=== PATIENT | female | born 1960 | race Caucasian/White ===

== ENCOUNTER → 2017-04-20 | Outpatient (CLI) | payer MEDICARE, OTHER ==
--- NOTE | 2017-04-20 08:43 | CT ---
EXAMINATION TYPE: CT chest wo con DATE OF EXAM: 04/20/2017 COMPARISON: NONE HISTORY: sob/diffuse infiltrative lung disease CT DLP: 873 mGycm. Automated Exposure Control for Dose Reduction was Utilized. TECHNIQUE: CT scan of the thorax is performed without IV contrast. FINDINGS: LUNGS: Background inferiorly moderate emphysematous change is seen There is background reticulation a nd diffuse intralobular reticulonodular septal thickening or fibrosis seen bilaterally most prominent in the upper lungs. There is small to moderate-sized left pleural effusion. Some multifocal areas of irregular subcentimeter nodularity is present bilaterally towards the periphery of the upper lobes. No suspicious focal consolidation is present. No large parenchymal mass is identified. Tracheobronchi al tree is patent. MEDIASTINUM: Lack of IV contrast is noted to limit evaluation for mediastinal and especially hilar ad enopathy. There are enlarged thoracic lymph nodes. There are prominent lymph nodes in the anterior superior mediastinum. There is enlarged right paratracheal lymph node for reference measuring 1.4 x 1 .3 cm on axial image 18. There is enlarged pericarinal lymph node measuring 1.7 x 1.4 cm maximal imag e 23. No significant pericardial effusion is seen. Mild Cardiomegaly is identified. There is three-v essel coronary artery calcification seen. OTHER: There is partial visualization of calcific foci upper pole level both kidneys felt to reflect some vascular calcification as well as small renal stones. There is slight scoliotic curvature with m oderate to severe spurring throughout the mid to lower thoracic spine identified. IMPRESSION: 1. There is background moderate chronic emphysematous change and interstitial fibrosis bilaterally an d diffusely but most prominent in upper lungs. 2. There is mild cardiomegaly with small to moderate-sized left pleural effusion. 3. There is abnormal thoracic adenopathy, differential includes infectious, granulomatous, and neopla stic etiologies. Need to further investigate by PET CT or bronchoscopy should be based on clinical co rrelation. 4. Severe three-vessel coronary artery calcification which is noted marker for coronary artery diseas e. Correlate clinically with additional cardiac risk factors.
== END | disposition home or self-care (01) ==
LOC: RADCTMAIN 07:06
PROVIDERS: ATTEND Internal Medicine Critical Care Medicine
DX: J84.10 Pulmonary fibrosis, unspecified (principal); I51.7 Cardiomegaly; J90 Pleural effusion, not elsewhere classified; J43.9 Emphysema, unspecified; I25.10 Atherosclerotic heart disease of native coronary artery without angina pectoris; R59.0 Localized enlarged lymph nodes
CPT/HCPCS: 71250

== ENCOUNTER → 2017-05-03 | Outpatient (CLI) | payer MEDICARE, OTHER ==
[2017-05-03 14:22] LABS: Hemoglobin A1C 8.9 % (4.2-6.1)
[2017-05-03 20:49] LABS: ANA w/Reflex to Titer NEGATIVE (NEGATIVE); RNP AB Interpretation NEGATIVE (NEGATIVE)
== END | disposition home or self-care (01) ==
LOC: LABWHC1 12:09
PROVIDERS: ATTEND Internal Medicine Critical Care Medicine
DX: E11.9 Type 2 diabetes mellitus without complications (principal); E66.9 Obesity, unspecified; J84.89 Other specified interstitial pulmonary diseases; J44.9 Chronic obstructive pulmonary disease, unspecified; J96.11 Chronic respiratory failure with hypoxia; I50.9 Heart failure, unspecified; R91.8 Other nonspecific abnormal finding of lung field
CPT/HCPCS: 36415; 82164; 83036; 85652; 86038; 86225; 86235; 86431

== ENCOUNTER 2017-05-21 14:25 | Emergency (ER) | payer MEDICARE, OTHER ==
[2017-05-21 14:34] VITALS: RESP 18
[2017-05-21] MEDS ORDERED: SODIUM CHLORIDE 0.9% 1,000 ML IV STA ×2 (15:01→16:09)
[2017-05-21] MEDS ORDERED: MECLIZINE 12.5 MG TAB PO STA (15:01)
--- NOTE | 2017-05-21 15:06 | ED ---
Neuro HPI - General Chief Complaint: Neuro Symptoms/Deficit Stated Complaint: Numbness Time Seen by Provider: 05/21/17 14:30 Source: patient, EMS, RN notes reviewed Mode of arrival: EMS Limitations: no limitations - History of Present Illness Is the patient presenting with stroke symptoms?: No Initial Comments: This is a 56-year-old female who around 7 AM this morning had a sudden wave of dizziness last about 20 minutes. She was fine and later on she started developing more dizziness with any head or positional movement. She has some nausea. She has some dizziness with it. No focal weakness however. She does have a remote history of a stroke. She states she's also was seeing flashes of light which she gets with ocular migraine headaches. She denies any pain at this time however. She does recently hospital yesterday for pneumonia that apparently started after having a bronchoscopy done. She did state she has some numbness to the front of her face and to her hands. - Related Data Home Medications: Home Medications Medication Instructions Recorded Confirmed Cetirizine HCl [Zyrtec] 10 mg PO DAILY 08/20/14 05/21/17 Cyclobenzaprine [Flexeril] 10 mg PO TID 08/20/14 05/21/17 EPINEPHrine (Auto Inject) [Epipen] 0.3 mg IM ONCE PRN 08/20/14 05/21/17 Montelukast Sodium [Singulair] 10 mg PO DAILY 08/20/14 05/21/17 Insulin Aspart Protam & Aspart 55 - 60 units SQ AC-BID 08/21/14 05/21/17 [NovoLOG MIX 70-30 Flexpen] Levothyroxine Sodium [Synthroid] 125 mcg PO DAILY 08/22/14 05/21/17 Bumetanide [BUMEX] 1 mg PO BID 06/08/16 05/21/17 Insulin Aspart [NovoLOG 10 unit SQ ACHS PRN 06/08/16 05/21/17 (formulary)] Magnesium Oxide [Mag-Ox] 250 mg PO TID 06/08/16 05/21/17 Ibuprofen [Motrin] 800 mg PO Q6H PRN 05/11/17 05/21/17 Albuterol Sulfate [Proair Hfa] 2 puff INHALATION RT-Q6H PRN 05/15/17 05/21/17 Lisinopril [Zestril] 10 mg PO BID 05/15/17 05/21/17 Pseudoephedrine 12Hr [Sudafed 12 120 mg PO DAILY PRN 05/15/17 05/21/17 Hour] predniSONE 20 mg PO DAILY PRN 05/15/17 05/21/17 Previous Rx's Medication Instructions Recorded Nitroglycerin Sl Tabs [Nitrostat] 0.4 mg SUBLINGUAL Q5M PRN #25 tab 06/09/16 Nystatin 100,000 Unit/gm Powd 1 applic TOPICAL BID PRN applic 05/13/17 [Mycostatin Powder] Meclizine [Antivert] 25 mg PO TID #20 tab 05/21/17 Allergies/Adverse Reactions: Allergies Allergy/AdvReac Type Severity Reaction Status Date / Time adhesive Allergy Rash/Hives Verified 05/21/17 15:12 adhesive tape Allergy Rash/Hives Verified 05/21/17 15:12 aspartame Allergy Unknown Verified 05/21/17 15:12 bee pollen Allergy Anaphylaxis Verified 05/21/17 15:12 Beta-Blockers Allergy Rash/Hives Verified 05/21/17 15:12 (Beta-Adrenergic Bloc bupropion HCl [From Zyban] Allergy Hallucinati Verified 05/21/17 15:12 ons cefaclor [From Ceclor] Allergy Rash/Hives Verified 05/21/17 15:12 cephalexin monohydrate Allergy Rash/Hives Verified 05/21/17 15:12 [From Keflex] cider vinegar Allergy Unknown Verified 05/21/17 15:12 cinnamon Allergy Unknown Verified 05/21/17 15:12 ciprofloxacin [From Cipro] Allergy Swelling Verified 05/21/17 15:12 ciprofloxacin HCl Allergy Swelling Verified 05/21/17 15:12 [From Cipro] citalopram hydrobromide Allergy Unknown Verified 05/21/17 15:12 [From Celexa] clindamycin Allergy Unknown Verified 05/21/17 15:12 clindamycin HCl Allergy Rash/Hives Verified 05/21/17 15:12 [From Cleocin] clindamycin palmitate HCl Allergy Rash/Hives Verified 05/21/17 15:12 [From Cleocin] clindamycin phosphate Allergy Rash/Hives Verified 05/21/17 15:12 [From Cleocin] codeine Allergy Unknown Verified 05/21/17 15:12 colesevelam HCl Allergy Unknown Verified 05/21/17 15:12 [From WelChol] diphenhydramine HCl Allergy Itching Verified 05/21/17 15:12 [From Benadryl] erythromycin base Allergy Rash/Hives Verified 05/21/17 15:12 [From E-Mycin] furosemide [From Lasix] Allergy Rash/Hives Verified 05/21/17 15:12 horse dander Allergy Wheezing Verified 05/21/17 15:12 insulin detemir Allergy Itching Verified 05/21/17 15:12 [From Levemir] Iodinated Contrast- Oral and Allergy Swelling Verified 05/21/17 15:12 IV Dye iodine Allergy Swelling Verified 05/21/17 15:12 labetalol HCl [From Trandate] Allergy Rash/Hives Verified 05/21/17 15:12 latex Allergy Anaphylaxis Verified 05/21/17 15:12 levothyroxine sodium Allergy Unknown Verified 05/21/17 15:12 [From Levothroid] metformin HCl Allergy Chest Pain Verified 05/21/17 15:12 [From Glucophage] Milk Containing Products Allergy Swelling Verified 05/21/17 15:12 Mushroom Allergy Unknown Verified 05/21/17 15:12 nortriptyline HCl Allergy Rash/Hives Verified 05/21/17 15:12 [From Pamelor] Penicillins Allergy Anaphylaxis Verified 05/21/17 15:12 Pork/Porcine Containing Allergy Swelling Verified 05/21/17 15:12 Products [Pork] shellfish derived Allergy Unknown Verified 05/21/17 15:12 simvastatin Allergy Swelling Verified 05/21/17 15:12 spironolactone Allergy Unknown Verified 05/21/17 15:12 [From Aldactone] strawberry Allergy Rash/Hives Verified 05/21/17 15:12 Sulfa (Sulfonamide Allergy Unknown Verified 05/21/17 15:12 Antibiotics) tetracycline Allergy Anaphylaxis Verified 05/21/17 15:12 thyroid,pork Allergy Rapid Verified 05/21/17 15:12 [From Jeannette Thyroid] Heart Rate METALS Allergy Unknown Uncoded 05/15/17 08:03 VINEGAR Allergy Swelling Uncoded 05/15/17 08:03 Review of Systems ROS Statement: Those systems with pertinent positive or pertinent negative responses have been documented in the HPI. ROS Other: All systems not noted in ROS Statement are negative. General Exam - General Exam Comments Initial Comments: Is a well-developed well-nourished awake alert oriented 3 female Limitations: no limitations General appearance: alert, in no apparent distress, anxious Head exam: Present: atraumatic, normocephalic, normal inspection Eye exam: Present: normal appearance, PERRL, EOMI. Absent: scleral icterus, conjunctival injection, periorbital swelling ENT exam: Present: normal exam, mucous membranes moist, other (Eyegrounds appear to be unremarkable) Neck exam: Present: normal inspection. Absent: tenderness, meningismus, lymphadenopathy Respiratory exam: Present: normal lung sounds bilaterally. Absent: respiratory distress, wheezes, rales, rhonchi, stridor Cardiovascular Exam: Present: regular rate, normal rhythm, normal heart sounds. Absent: systolic murmur, diastolic murmur, rubs, gallop, clicks GI/Abdominal exam: Present: soft, normal bowel sounds. Absent: distended, tenderness, guarding, rebound, rigid Extremities exam: Present: normal inspection, full ROM, normal capillary refill. Absent: tenderness, pedal edema, joint swelling, calf tenderness Back exam: Present: normal inspection Neurological exam: Present: alert, oriented X3, CN II-XII intact (Patient does have slight double vision on direct confrontation [id number] ). Absent: motor sensory deficit Psychiatric exam: Present: normal affect, normal mood Skin exam: Present: warm, dry, intact, normal color. Absent: rash Stroke MDM - Lab Data Result diagrams: 05/21/17 14:42 05/21/17 14:42 Lab Results 05/21/17 05/21/17 05/21/17 Range/Units 14:42 14:42 14:42 WBC 8.6 (3.8-10.6) k/uL RBC 4.10 (3.80-5.40) m/uL Hgb 12.1 (11.4-16.0) gm/dL Hct 35.7 (34.0-46.0) % MCV 87.0 (80.0-100.0) fL MCH 29.4 (25.0-35.0) pg MCHC 33.8 (31.0-37.0) g/dL RDW 15.9 H (11.5-15.5) % Plt Count 285 (150-450) k/uL Neutrophils % 66 % Lymphocytes % 24 % Monocytes % 4 % Eosinophils % 3 % Basophils % 1 % Neutrophils # 5.6 (1.3-7.7) k/uL Lymphocytes # 2.1 (1.0-4.8) k/uL Monocytes # 0.4 (0-1.0) k/uL Eosinophils # 0.3 (0-0.7) k/uL Basophils # 0.1 (0-0.2) k/uL PT (9.0-12.0) sec INR (<1.2) APTT (22.0-30.0) sec Sodium 133 L (137-145) mmol/L Potassium 4.3 (3.5-5.1) mmol/L Chloride 101 (98-107) mmol/L Carbon Dioxide 30 (22-30) mmol/L Anion Gap 2 mmol/L BUN 15 (7-17) mg/dL Creatinine 0.50 L (0.52-1.04) mg/dL Est GFR (MDRD) Af Amer >60 (>60 ml/min/1.73 sqM) Est GFR (MDRD) Non-Af >60 (>60 ml/min/1.73 sqM) Glucose 203 H (74-99) mg/dL Calcium 8.7 (8.4-10.2) mg/dL Magnesium 1.9 (1.6-2.3) mg/dL Total Bilirubin 0.4 (0.2-1.3) mg/dL AST 32 (14-36) U/L ALT 40 (9-52) U/L Alkaline Phosphatase 61 (38-126) U/L Total Creatine Kinase 86 (30-135) U/L CK-MB (CK-2) 2.6 H* (0.0-2.4) ng/mL CK-MB (CK-2) Rel Index 3.0 Troponin I 0.031 (0.000-0.034) ng/mL Total Protein 5.7 L (6.3-8.2) g/dL Albumin 2.8 L (3.5-5.0) g/dL Urine Color Urine Appearance (Clear) Urine pH (5.0-8.0) Ur Specific [place] (1.001-1.035) Urine Protein (Negative) Urine Glucose (UA) (Negative) Urine Ketones (Negative) Urine Blood (Negative) Urine Nitrite (Negative) Urine Bilirubin (Negative) Urine Urobilinogen (<2.0) mg/dL Ur Leukocyte Esterase (Negative) 05/21/17 05/21/17 Range/Units 14:42 15:16 WBC (3.8-10.6) k/uL RBC (3.80-5.40) m/uL Hgb (11.4-16.0) gm/dL Hct (34.0-46.0) % MCV (80.0-100.0) fL MCH (25.0-35.0) pg MCHC (31.0-37.0) g/dL RDW (11.5-15.5) % Plt Count (150-450) k/uL Neutrophils % % Lymphocytes % % Monocytes % % Eosinophils % % Basophils % % Neutrophils # (1.3-7.7) k/uL Lymphocytes # (1.0-4.8) k/uL Monocytes # (0-1.0) k/uL Eosinophils # (0-0.7) k/uL Basophils # (0-0.2) k/uL PT 10.7 (9.0-12.0) sec INR 1.1 (<1.2) APTT 21.0 L (22.0-30.0) sec Sodium (137-145) mmol/L Potassium (3.5-5.1) mmol/L Chloride (98-107) mmol/L Carbon Dioxide (22-30) mmol/L Anion Gap mmol/L BUN (7-17) mg/dL Creatinine (0.52-1.04) mg/dL Est GFR (MDRD) Af Amer (>60 ml/min/1.73 sqM) Est GFR (MDRD) Non-Af (>60 ml/min/1.73 sqM) Glucose (74-99) mg/dL Calcium (8.4-10.2) mg/dL Magnesium (1.6-2.3) mg/dL Total Bilirubin (0.2-1.3) mg/dL AST (14-36) U/L ALT (9-52) U/L Alkaline Phosphatase (38-126) U/L Total Creatine Kinase (30-135) U/L CK-MB (CK-2) (0.0-2.4) ng/mL CK-MB (CK-2) Rel Index Troponin I (0.000-0.034) ng/mL Total Protein (6.3-8.2) g/dL Albumin (3.5-5.0) g/dL Urine Color Yellow Urine Appearance Clear (Clear) Urine pH 6.0 (5.0-8.0) Ur Specific [place] 1.005 (1.001-1.035) Urine Protein Negative (Negative) Urine Glucose (UA) Negative (Negative) Urine Ketones Negative (Negative) Urine Blood Negative (Negative) Urine Nitrite Negative (Negative) Urine Bilirubin Negative (Negative) Urine Urobilinogen <2.0 (<2.0) mg/dL Ur Leukocyte Esterase Negative (Negative) - NIH Stroke Scale 1a. Level of Consciousness: (0) alert 1b. LOC Questions: (0) answers correctly 1c. LOC Commands: (0) performs tasks correctly 2. Best Gaze: (0) normal 3. Visual: (0) no visual loss 4. Facial Palsy: (0) normal symmetrical movement 5a. Motor Arm Left: (0) no drift 5b. Motor Arm Right: (0) no drift 6a. Motor Leg Left: (0) no drift 6b. Motor Leg Right: (0) no drift 7. Limb Ataxia: (0) absent 8. Sensory: (0) normal 9. Best Language: (0) no aphasia 10. Dysarthria: (0) normal 11. Extinction/Inattention: (0) no abnormality - Medical Decision Making I did review the imaging CAT scan is unremarkable except for possibly some Sinus disease the x-ray shows an increase in social markings patient did recently diagnosed with pneumonia. Patient's visual disturbances better she relates it to an ocular migraine. She was offered medication she prefers involvement take her own medication she is feeling better with respect to dizziness she'll be discharged on Antivert. - EKG Data -: EKG Interpreted by Me EKG shows normal: sinus rhythm (Sinus rhythm rate of 71 AR interval 182 QRS 112 QT since QTC of 412/[address] configuration.) Past Medical History Past Medical History: Coronary Artery Disease (CAD), Heart Failure, COPD, CVA/ TIA, Diabetes Mellitus, Hyperlipidemia, Hypertension, Thyroid Disorder Additional Past Medical History / Comment(s): Interstitial lung disease, COPD, multiple environmental and drug ALLERGIES, congestion heart failure, diabetes mellitus, hyperlipidemia, hypertension, hypothyroidism, obesity, chronic sinusitis, history of mini stroke back in 2013 with some residual right-sided numbness, difficulties with short-term memory, chronic hypoxic respiratory failure on oxygen 2 L/m nasal cannula hx. cellulitis both lower legs, chronic back pain, History of Any Multi-Drug Resistant Organisms: None Reported Past Surgical History: Section Additional Past Surgical History / Comment(s): D/C, bronchoscopy Past Anesthesia/Blood Transfusion Reactions: Previous Problems w/ Anesthesia Additional Past Anesthesia/Blood Transfusion Reaction / Comment(s): States she has a "hard time coming out of anesthesia." Past Psychological History: No Psychological Hx Reported Smoking Status: Former smoker Past Alcohol Use History: None Reported Past Drug Use History: None Reported - Past Family History Mother Additional Family Medical History / Comment(s): pulmonary fibrosis Father Family Medical History: Congestive Heart Failure (CHF), COPD, Myocardial Infarction ([place]) Additional Family Medical History / Comment(s): "breathing problems" Course Vital Signs 05/21/17 05/21/17 05/21/17 14:26 15:26 16:02 Temperature 98.0 F Pulse Rate 74 76 81 Respiratory 18 18 18 Rate Blood Pressure 152/70 153/72 139/63 O2 Sat by Pulse 98 96 96 Oximetry - Reevaluation(s) Reevaluation #1: 05/21/17 15:06 The patient's initial NIH score is 0. Disposition Clinical Impression: Benign positional vertigo, Ocular migraine Disposition: HOME SELF-CARE Condition: Good Instructions: Benign Paroxysmal Positional Vertigo (ED), Ocular Migraine (ED) Prescriptions: Meclizine [Antivert] 25 mg PO TID #20 tab Referrals: Sondra Mclaughlin MD [Primary Care Provider] - 1-2 days
[2017-05-21 15:20] LABS: Basophils # (A) 0.1 k/uL (0-0.2); Basophils % (A) 1 %; CH 29.1; CHCM 33.7; Eosinophils # (A) 0.3 k/uL (0-0.7); Eosinophils % (A) 3 %; HCT 35.7 % (34.0-46.0); HDW 3.12; HGB 12.1 gm/dL (11.4-16.0); Luc # (Auto) 0.15; Luc % (Auto) 2; Lymphocytes # (A) 2.1 k/uL (1.0-4.8); Lymphocytes % (A) 24 %; MCH 29.4 pg (25.0-35.0); MCHC 33.8 g/dL (31.0-37.0); Mean Platelet Volume 8.4; Monocytes # (A) 0.4 k/uL (0-1.0); Monocytes % (A) 4 %; Neutrophils # (A) 5.6 k/uL (1.3-7.7); Neutrophils % (A) 66 %; RDW 15.9 % (11.5-15.5); WBC 8.6 k/uL (3.8-10.6); WBC (Perox) 8.81
[2017-05-21 15:31] LABS: ALT 40 U/L (9-52); AST 32 U/L (14-36); Alkaline Phosphatase 61 U/L (38-126); Anion Gap 2 mmol/L; Blood Urea Nitrogen 15 mg/dL (7-17); Calcium 8.7 mg/dL (8.4-10.2); Carbon Dioxide 30 mmol/L (22-30); Chloride 101 mmol/L (98-107); Glucose 203 mg/dL (74-99); Magnesium 1.9 mg/dL (1.6-2.3); Non-African American GFR(MDRD) >60 (>60 ml/min/1.73 sqM); Potassium 4.3 mmol/L (3.5-5.1); Sodium 133 mmol/L (137-145); Total Bilirubin 0.4 mg/dL (0.2-1.3); Total Protein 5.7 g/dL (6.3-8.2)
[2017-05-21 15:32] LABS: Appearance,Urine Clear (Clear); Bilirubin,Urine Negative (Negative); Glucose,Urine (UA) Negative (Negative); Ketones,Urine Negative (Negative); Leukocyte Esterase,Urine Negative (Negative); Nitrite,Urine Negative (Negative); Protein,Urine Negative (Negative); Specific Gravity,Urine 1.005 (1.001-1.035); UA Billing (MACRO vs. MICRO) CHEM; Urobilinogen,Urine <2.0 mg/dL (<2.0)
[2017-05-21 15:36] LABS: INR 1.1 (<1.2); Prothrombin Time 10.7 sec (9.0-12.0)
--- NOTE | 2017-05-21 15:51 | CT ---
EXAMINATION TYPE: CT brain wo con for TPA DATE OF EXAM: 05/21/2017 COMPARISON: NONE HISTORY: Right sided facial numbness CT DLP: mGycm Automated exposure control for dose reduction was used. FINDINGS: Multiple axial sections were obtained of the brain with no contrast. The ventricles have normal size. There is no mass effect nor midline shift. There is no sign of intracranial hemorrhage. There is muc osal thickening in the right maxillary sinus. The calvarium is intact. IMPRESSION: NEGATIVE CT SCAN OF THE BRAIN. MINIMAL RIGHT MAXILLARY SINUSITIS.
[2017-05-21 15:54] LABS: Troponin I 0.031 ng/mL (0.000-0.034)
[2017-05-21 15:56] LABS: Creatine Kinase MB 2.6 ng/mL (0.0-2.4)
--- NOTE | 2017-05-21 16:26 | XR ---
EXAMINATION TYPE: XR chest 2V DATE OF EXAM: 05/21/2017 COMPARISON: 05/19/2017 HISTORY: Dizziness TECHNIQUE: Frontal and lateral views of the chest are obtained. FINDINGS: There is pulmonary interstitial edema. There is some degree of pulmonary alveolar edema. T here is no pleural effusion. There are chest leads. Thoracic aorta is atheromatous. IMPRESSION: Increasing pulmonary edema compared to last exam. The appearance is nonspecific. I would consider more likely interstitial pneumonia. I do not see pleural fluid to suggest heart failure.
[2017-05-21 16:58] VITALS: BP 119/54; PULSE 75; TEMP 98.1
== END 2017-05-21 16:57 | disposition home or self-care (01) ==
LOC: EC 14:25
DX: H81.10 Benign paroxysmal vertigo, unspecified ear (principal); G43.909 Migraine, unspecified, not intractable, without status migrainosus; E11.9 Type 2 diabetes mellitus without complications; E07.9 Disorder of thyroid, unspecified; I11.0 Hypertensive heart disease with heart failure; I50.9 Heart failure, unspecified; J44.9 Chronic obstructive pulmonary disease, unspecified; E66.9 Obesity, unspecified; Z87.891 Personal history of nicotine dependence; Z91.048 Other nonmedicinal substance allergy status; Z91.018 Allergy to other foods; Z88.8 Allergy status to other drugs, medicaments and biological substances; Z88.1 Allergy status to other antibiotic agents; Z91.041 Radiographic dye allergy status; Z91.040 Latex allergy status; Z91.011 Allergy to milk products; Z88.2 Allergy status to sulfonamides; Z91.09 Other allergy status, other than to drugs and biological substances; Z91.013 Allergy to seafood; Z79.4 Long term (current) use of insulin; Z79.52 Long term (current) use of systemic steroids; Z79.899 Other long term (current) drug therapy
CPT/HCPCS: 36415; 70450; 71020; 80053; 81003; 82550; 82553; 83735; 84484; 85025; 85610; 85730; 93005; 96360; 96361; 99285

== ENCOUNTER 2017-07-13 03:54 | Inpatient (IN) | payer MEDICARE, OTHER ==
[2017-07-13] MEDS ORDERED: IPRATROPIUM-ALBUTEROL 3 ML NEB INHALATION STA (04:19)
[2017-07-13] MEDS ORDERED: methylPREDNISolone SOD SUCCI 125 MG/2 ML VIAL IV STA (04:19)
--- NOTE | 2017-07-13 04:30 | ED ---
General Adult HPI - General Chief complaint: Dizziness Stated complaint: dizziness Time Seen by Provider: 07/13/17 03:58 Source: patient, EMS, RN notes reviewed, old records reviewed Mode of arrival: EMS Limitations: no limitations - History of Present Illness Initial comments: 56-year-old female with history diabetes, congestive heart failure, morbid obesity presenting for evaluation of 3 days of cough and dyspnea. Patient denies chest pain. She denies fever, states she's had some chills. She did develop mild abdominal pain and vomiting today. She has had a productive cough with yellow sputum. She is currently being treated for staph pneumonia. She was on IV antibiotics as an outpatient. She is currently on 2 L home O2. Symptoms that prompted her emergency visit were worsening dyspnea and the development of generalized weakness and lightheadedness. Patient also complained of numbness to her right second and third digits. No weakness. No other neurological complaints. - Related Data Home Medications Medication Instructions Recorded Confirmed Cetirizine HCl [Zyrtec] 10 mg PO DAILY 08/20/14 06/30/17 Cyclobenzaprine [Flexeril] 10 mg PO TID 08/20/14 06/30/17 EPINEPHrine (Auto Inject) [Epipen] 0.3 mg IM ONCE PRN 08/20/14 06/29/17 Bumetanide [BUMEX] 1 mg PO BID 06/08/16 06/30/17 Insulin Aspart [NovoLOG 2 - 15 unit SQ TID 06/08/16 06/30/17 (formulary)] Magnesium Oxide [Mag-Ox] 250 mg PO TID 06/08/16 06/30/17 Ibuprofen [Motrin] 800 mg PO Q6H PRN 05/11/17 06/30/17 Pseudoephedrine 12Hr [Sudafed 12 120 mg PO DAILY PRN 05/15/17 06/29/17 Hour] predniSONE 10 mg PO DAILY PRN 05/15/17 06/29/17 Insulin Aspart Protam & Aspart 40 - 70 unit SQ BID 06/29/17 06/30/17 [NovoLOG MIX 70-30 Flexpen] Levalbuterol Nebulized [Xopenex 1.25 mg INHALATION TID PRN 06/29/17 06/30/17 Nebulized] Levothyroxine Sodium [Synthroid] 125 mcg PO DAILY 06/29/17 06/30/17 Montelukast [Singulair] 10 mg PO HS 06/29/17 06/30/17 Previous Rx's Medication Instructions Recorded Nitroglycerin Sl Tabs [Nitrostat] 0.4 mg SUBLINGUAL Q5M PRN #25 tab 06/09/16 Nystatin 100,000 Unit/gm Powd 1 applic TOPICAL BID PRN applic 05/13/17 [Mycostatin Powder] Allergies Allergy/AdvReac Type Severity Reaction Status Date / Time adhesive Allergy Rash/Hives Verified 06/29/17 11:23 adhesive tape Allergy Rash/Hives Verified 06/29/17 11:23 aspartame Allergy Unknown Verified 06/29/17 11:23 bee pollen Allergy Anaphylaxis Verified 06/29/17 11:23 Beta-Blockers Allergy Rash/Hives Verified 06/29/17 11:23 (Beta-Adrenergic Bloc bupropion [From Zyban] Allergy Hallucinati Verified 06/29/17 11:23 ons bupropion HCl [From Zyban] Allergy Hallucinati Verified 06/29/17 11:23 ons cefaclor [From Ceclor] Allergy Rash/Hives Verified 06/29/17 11:23 cephalexin [From Keflex] Allergy Rash/Hives Verified 06/29/17 11:23 cephalexin monohydrate Allergy Rash/Hives Verified 06/29/17 11:23 [From Keflex] cider vinegar Allergy Unknown Verified 06/29/17 11:23 cinnamon Allergy Unknown Verified 06/29/17 11:23 ciprofloxacin [From Cipro] Allergy Swelling Verified 06/29/17 11:23 ciprofloxacin HCl Allergy Swelling Verified 06/29/17 11:23 [From Cipro] citalopram hydrobromide Allergy Unknown Verified 06/29/17 11:23 [From Celexa] clindamycin Allergy Unknown Verified 06/29/17 11:23 clindamycin HCl Allergy Rash/Hives Verified 06/29/17 11:23 [From Cleocin] clindamycin palmitate HCl Allergy Rash/Hives Verified 06/29/17 11:23 [From Cleocin] clindamycin phosphate Allergy Rash/Hives Verified 06/29/17 11:23 [From Cleocin] codeine Allergy Unknown Verified 06/29/17 11:23 colesevelam HCl Allergy Unknown Verified 06/29/17 11:23 [From WelChol] diphenhydramine Allergy Rash/Hives Verified 06/29/17 11:23 [From Benadryl] diphenhydramine HCl Allergy Itching Verified 06/29/17 11:23 [From Benadryl] erythromycin base Allergy Rash/Hives Verified 06/29/17 11:23 [From E-Mycin] furosemide [From Lasix] Allergy Rash/Hives Verified 06/29/17 11:23 horse dander Allergy Wheezing Verified 06/29/17 11:23 insulin detemir Allergy Itching Verified 06/29/17 11:23 [From Levemir] Iodinated Contrast- Oral and Allergy Swelling Verified 06/29/17 11:23 IV Dye iodine Allergy Swelling Verified 06/29/17 11:23 labetalol HCl [From Trandate] Allergy Rash/Hives Verified 06/29/17 11:23 latex Allergy Anaphylaxis Verified 06/29/17 11:23 levothyroxine sodium Allergy Rash/Hives Verified 06/29/17 11:23 [From Levothroid] metformin HCl Allergy Chest Pain Verified 06/29/17 11:23 [From Glucophage] Milk Containing Products Allergy Swelling Verified 06/29/17 11:23 Mushroom Allergy SWELLING Verified 06/29/17 11:23 OF TONGUE,SCRATCHING FEELING nortriptyline HCl Allergy Rash/Hives Verified 06/29/17 11:23 [From Pamelor] Penicillins Allergy Anaphylaxis Verified 06/29/17 11:23 Pork/Porcine Containing Allergy Swelling Verified 06/29/17 11:23 Products [Pork] shellfish derived Allergy SEVERE Verified 06/29/17 11:23 ITCHING ,SWELLING OF THROAT simvastatin Allergy Swelling Verified 06/29/17 11:23 spironolactone Allergy ITCHING Verified 06/29/17 11:23 [From Aldactone] AND RED RASH strawberry Allergy Rash/Hives Verified 06/29/17 11:23 Sulfa (Sulfonamide Allergy WAS TOLD Verified 06/29/17 11:23 Antibiotics) BY DR NOT TO TAKE tetracycline Allergy Anaphylaxis Verified 06/29/17 11:23 thyroid,pork Allergy Rapid Verified 06/29/17 11:23 [From [place] Thyroid] Heart Rate BAND AID Allergy BLISTERS Uncoded 06/29/17 11:23 CODEINE Allergy Abdominal Uncoded 06/29/17 11:23 Pain METALS Allergy "FILLINGS Uncoded 06/29/17 11:23 ROTTED MY TEETH" VINEGAR Allergy Swelling Uncoded 06/29/17 11:23 Review of Systems ROS Statement: Those systems with pertinent positive or pertinent negative responses have been documented in the HPI. ROS Other: All systems not noted in ROS Statement are negative. Past Medical History Past Medical History: Asthma, Heart Failure, CVA/TIA, Diabetes Mellitus, Hyperlipidemia, Hypertension, Thyroid Disorder Additional Past Medical History / Comment(s): Interstitial lung disease, multiple environmental and drug ALLERGIES, chronic sinusitis, history of mini stroke back in 2013 with some residual right-sided numbness, difficulties with short-term memory, chronic hypoxic respiratory failure on oxygen 2 L/m nasal cannula hx. cellulitis both lower legs, chronic back pain, USES O2 AT 2 LITERS CONTINOUSLY, History of Any Multi-Drug Resistant Organisms: None Reported Past Surgical History: Section Additional Past Surgical History / Comment(s): D/C, bronchoscopy Past Anesthesia/Blood Transfusion Reactions: Previous Problems w/ Anesthesia Additional Past Anesthesia/Blood Transfusion Reaction / Comment(s): States she has a "hard time coming out of anesthesia." Past Psychological History: No Psychological Hx Reported Smoking Status: Former smoker Past Alcohol Use History: None Reported Past Drug Use History: None Reported - Past Family History Mother Family Medical History: Cancer Additional Family Medical History / Comment(s): pulmonary fibrosis, SKIN CANCER Father Family Medical History: Congestive Heart Failure (CHF), COPD, Myocardial Infarction (MD) Additional Family Medical History / Comment(s): "breathing problems" General Exam Limitations: no limitations General appearance: alert, in no apparent distress Head exam: Present: atraumatic, normocephalic Eye exam: Present: normal appearance, PERRL ENT exam: Present: normal exam Neck exam: Present: normal inspection. Absent: tenderness Respiratory exam: Present: respiratory distress (mild), rales (Rales on lung base), other (Bronchospastic cough) Cardiovascular Exam: Present: regular rate, normal rhythm GI/Abdominal exam: Present: soft. Absent: distended, tenderness, guarding Extremities exam: Present: normal capillary refill, pedal edema Neurological exam: Present: alert, oriented X3, CN II-XII intact. Absent: motor sensory deficit Psychiatric exam: Present: normal affect, normal mood Skin exam: Present: warm, dry, intact. Absent: cyanosis, diaphoretic Course Vital Signs 07/13/17 07/13/17 03:56 04:19 Temperature 97.7 F Pulse Rate 97 68 Respiratory 25 H 18 Rate Blood Pressure 201/84 171/70 O2 Sat by Pulse 94 L 94 L Oximetry EKG Findings - EKG Comments: EKG Findings:: EKG shows normal sinus rhythm, T-wave abnormality in the lateral precordium, ventricular rate 81, ND interval 174, castration 100, QTC 487, no signs of ST segment elevation. T-wave abnormality is new compared to previous EKG in May 2017 Medical Decision Making - Medical Decision Making 56-year-old female presents with cough and dyspnea lightheadedness and generalized weakness. Patient is currently being treated for staph pneumonia. She is on antibiotics through left upper extremity PICC line. States her cough is worsened over the past several days. Patient has significant tobacco history , however she quits approximately 6 months ago. No formal diagnosis of COPD. Chest x-ray obtained, shows bilateral opacities which is improved from previous x-ray. On examination, patient has pronounced bronchospastic cough with wheezing and decreased air entry. White blood cell count normal 7.8, hemoglobin 12.7. Sodium is low 128 which is down trending from previous laboratory studies. CO2 31 consistent with chronic CO2 retention. Lactic acid normal. BNP normal at 280, patient does have history of heart failure and echo from May is reviewed EF of 45-50% with global hypokinesis. Patient's EKG shows new T-wave inversion in the lateral precordium compared to old EKG. Patient is not complaining of any chest pain. Diagnosis: Reactive airway disease consistent with COPD. - Lab Data Result diagrams: 07/13/17 04:06 07/13/17 04:06 Lab Results 07/13/17 07/13/17 07/13/17 Range/Units 04:06 04:06 04:06 WBC 7.8 (3.8-10.6) k/uL RBC 4.40 (3.80-5.40) m/uL Hgb 12.7 (11.4-16.0) gm/dL Hct 38.8 (34.0-46.0) % MCV 88.3 (80.0-100.0) fL MCH 28.8 (25.0-35.0) pg MCHC 32.7 (31.0-37.0) g/dL RDW 15.8 H (11.5-15.5) % Plt Count 236 (150-450) k/uL Neutrophils % 54 % Lymphocytes % 32 % Monocytes % 6 % Eosinophils % 4 % Basophils % 1 % Neutrophils # 4.3 (1.3-7.7) k/uL Lymphocytes # 2.5 (1.0-4.8) k/uL Monocytes # 0.4 (0-1.0) k/uL Eosinophils # 0.3 (0-0.7) k/uL Basophils # 0.1 (0-0.2) k/uL PT (9.0-12.0) sec INR (<1.2) APTT (22.0-30.0) sec Sodium 128 L (137-145) mmol/L Potassium 4.5 (3.5-5.1) mmol/L Chloride 91 L (98-107) mmol/L Carbon Dioxide 31 H (22-30) mmol/L Anion Gap 6 mmol/L BUN 16 (7-17) mg/dL Creatinine 0.60 (0.52-1.04) mg/dL Est GFR (MDRD) Af Amer >60 (>60 ml/min/1.73 sqM) Est GFR (MDRD) Non-Af >60 (>60 ml/min/1.73 sqM) Glucose 274 H (74-99) mg/dL Plasma Lactic Acid Francisco (0.7-2.0) mmol/L Calcium 8.8 (8.4-10.2) mg/dL Magnesium 2.1 (1.6-2.3) mg/dL Total Bilirubin 0.4 (0.2-1.3) mg/dL AST 28 (14-36) U/L ALT 45 (9-52) U/L Alkaline Phosphatase 83 (38-126) U/L Total Creatine Kinase 205 H (30-135) U/L CK-MB (CK-2) 4.0 H* (0.0-2.4) ng/mL CK-MB (CK-2) Rel Index 2.0 Troponin I 0.028 (0.000-0.034) ng/mL NT-Pro-B Natriuret Pep pg/mL Total Protein 6.3 (6.3-8.2) g/dL Albumin 3.1 L (3.5-5.0) g/dL Urine Color Urine Appearance (Clear) Urine pH (5.0-8.0) Ur Specific Mason (1.001-1.035) Urine Protein (Negative) Urine Glucose (UA) (Negative) Urine Ketones (Negative) Urine Blood (Negative) Urine Nitrite (Negative) Urine Bilirubin (Negative) Urine Urobilinogen (<2.0) mg/dL Ur Leukocyte Esterase (Negative) Urine WBC (0-5) /hpf Ur Squamous Epith Cells (0-4) /hpf Urine Mucus (None) /hpf Influenza Type A RNA (Not Detectd) Influenza Type B (PCR) (Not Detectd) 07/13/17 07/13/17 07/13/17 Range/Units 04:06 04:06 04:06 WBC (3.8-10.6) k/uL RBC (3.80-5.40) m/uL Hgb (11.4-16.0) gm/dL Hct (34.0-46.0) % MCV (80.0-100.0) fL MCH (25.0-35.0) pg MCHC (31.0-37.0) g/dL RDW (11.5-15.5) % Plt Count (150-450) k/uL Neutrophils % % Lymphocytes % % Monocytes % % Eosinophils % % Basophils % % Neutrophils # (1.3-7.7) k/uL Lymphocytes # (1.0-4.8) k/uL Monocytes # (0-1.0) k/uL Eosinophils # (0-0.7) k/uL Basophils # (0-0.2) k/uL PT 10.1 (9.0-12.0) sec INR 1.0 (<1.2) APTT 23.9 (22.0-30.0) sec Sodium (137-145) mmol/L Potassium (3.5-5.1) mmol/L Chloride (98-107) mmol/L Carbon Dioxide (22-30) mmol/L Anion Gap mmol/L BUN (7-17) mg/dL Creatinine (0.52-1.04) mg/dL Est GFR (MDRD) Af Amer (>60 ml/min/1.73 sqM) Est GFR (MDRD) Non-Af (>60 ml/min/1.73 sqM) Glucose (74-99) mg/dL Plasma Lactic Acid Francisco 1.4 (0.7-2.0) mmol/L Calcium (8.4-10.2) mg/dL Magnesium (1.6-2.3) mg/dL Total Bilirubin (0.2-1.3) mg/dL AST (14-36) U/L ALT (9-52) U/L Alkaline Phosphatase (38-126) U/L Total Creatine Kinase (30-135) U/L CK-MB (CK-2) (0.0-2.4) ng/mL CK-MB (CK-2) Rel Index Troponin I (0.000-0.034) ng/mL NT-Pro-B Natriuret Pep 280 pg/mL Total Protein (6.3-8.2) g/dL Albumin (3.5-5.0) g/dL Urine Color Urine Appearance (Clear) Urine pH (5.0-8.0) Ur Specific Mason (1.001-1.035) Urine Protein (Negative) Urine Glucose (UA) (Negative) Urine Ketones (Negative) Urine Blood (Negative) Urine Nitrite (Negative) Urine Bilirubin (Negative) Urine Urobilinogen (<2.0) mg/dL Ur Leukocyte Esterase (Negative) Urine WBC (0-5) /hpf Ur Squamous Epith Cells (0-4) /hpf Urine Mucus (None) /hpf Influenza Type A RNA (Not Detectd) Influenza Type B (PCR) (Not Detectd) 07/13/17 07/13/17 Range/Units 04:36 05:22 WBC (3.8-10.6) k/uL RBC (3.80-5.40) m/uL Hgb (11.4-16.0) gm/dL Hct (34.0-46.0) % MCV (80.0-100.0) fL MCH (25.0-35.0) pg MCHC (31.0-37.0) g/dL RDW (11.5-15.5) % Plt Count (150-450) k/uL Neutrophils % % Lymphocytes % % Monocytes % % Eosinophils % % Basophils % % Neutrophils # (1.3-7.7) k/uL Lymphocytes # (1.0-4.8) k/uL Monocytes # (0-1.0) k/uL Eosinophils # (0-0.7) k/uL Basophils # (0-0.2) k/uL PT (9.0-12.0) sec INR (<1.2) APTT (22.0-30.0) sec Sodium (137-145) mmol/L Potassium (3.5-5.1) mmol/L Chloride (98-107) mmol/L Carbon Dioxide (22-30) mmol/L Anion Gap mmol/L BUN (7-17) mg/dL Creatinine (0.52-1.04) mg/dL Est GFR (MDRD) Af Amer (>60 ml/min/1.73 sqM) Est GFR (MDRD) Non-Af (>60 ml/min/1.73 sqM) Glucose (74-99) mg/dL Plasma Lactic Acid Francisco (0.7-2.0) mmol/L Calcium (8.4-10.2) mg/dL Magnesium (1.6-2.3) mg/dL Total Bilirubin (0.2-1.3) mg/dL AST (14-36) U/L ALT (9-52) U/L Alkaline Phosphatase (38-126) U/L Total Creatine Kinase (30-135) U/L CK-MB (CK-2) (0.0-2.4) ng/mL CK-MB (CK-2) Rel Index Troponin I (0.000-0.034) ng/mL NT-Pro-B Natriuret Pep pg/mL Total Protein (6.3-8.2) g/dL Albumin (3.5-5.0) g/dL Urine Color Yellow Urine Appearance Cloudy H (Clear) Urine pH 5.5 (5.0-8.0) Ur Specific Mason 1.012 (1.001-1.035) Urine Protein Negative (Negative) Urine Glucose (UA) 2+ H (Negative) Urine Ketones Negative (Negative) Urine Blood Negative (Negative) Urine Nitrite Negative (Negative) Urine Bilirubin Negative (Negative) Urine Urobilinogen <2.0 (<2.0) mg/dL Ur Leukocyte Esterase Negative (Negative) Urine WBC 1 (0-5) /hpf Ur Squamous Epith Cells <1 (0-4) /hpf Urine Mucus Rare H (None) /hpf Influenza Type A RNA Not Detected (Not Detectd) Influenza Type B (PCR) Not Detected (Not Detectd) Disposition Clinical Impression: HTN (hypertension), Pneumonia, COPD exacerbation, Near syncope Disposition: ADMITTED IP TO THIS HOSP Condition: Stable Referrals: Sondra Mclaughlin MD [Primary Care Provider] - 1-2 days Time of Disposition: 06:20
[2017-07-13 04:47] LABS: Basophils # (A) 0.1 k/uL (0-0.2); Basophils % (A) 1 %; Eosinophils # (A) 0.3 k/uL (0-0.7); Eosinophils % (A) 4 %; HCT 38.8 % (34.0-46.0); HGB 12.7 gm/dL (11.4-16.0); Lymphocytes # (A) 2.5 k/uL (1.0-4.8); Lymphocytes % (A) 32 %; MCH 28.8 pg (25.0-35.0); MCHC 32.7 g/dL (31.0-37.0); MCV 88.3 fL (80.0-100.0); Mean Platelet Volume 7.8; Monocytes # (A) 0.4 k/uL (0-1.0); Monocytes % (A) 6 %; Neutrophils # (A) 4.3 k/uL (1.3-7.7); Neutrophils % (A) 54 %; Platelet Count 236 k/uL (150-450); RDW 15.8 % (11.5-15.5); WBC 7.8 k/uL (3.8-10.6)
[2017-07-13 04:56] LABS: Prothrombin Time 10.1 sec (9.0-12.0)
[2017-07-13 04:57] LABS: ALT 45 U/L (9-52); AST 28 U/L (14-36); Albumin 3.1 g/dL (3.5-5.0); Alkaline Phosphatase 83 U/L (38-126); Anion Gap 6 mmol/L; Blood Urea Nitrogen 16 mg/dL (7-17); Calcium 8.8 mg/dL (8.4-10.2); Carbon Dioxide 31 mmol/L (22-30); Chloride 91 mmol/L (98-107); Glucose 274 mg/dL (74-99); Magnesium 2.1 mg/dL (1.6-2.3); Partial Thromboplastin Time 23.9 sec (22.0-30.0); Potassium 4.5 mmol/L (3.5-5.1); Sodium 128 mmol/L (137-145); Total Bilirubin 0.4 mg/dL (0.2-1.3); Total Protein 6.3 g/dL (6.3-8.2)
[2017-07-13 05:30] LABS: Troponin I 0.028 ng/mL (0.000-0.034)
[2017-07-13 05:48] LABS: Appearance,Urine Cloudy (Clear); Bilirubin,Urine Negative (Negative); Blood,Urine Negative (Negative); Color,Urine Yellow; Glucose,Urine (UA) 2+ (Negative); Ketones,Urine Negative (Negative); Leukocyte Esterase,Urine Negative (Negative); Mucus,Urine Rare /hpf; Nitrite,Urine Negative (Negative); PH, Urine 5.5 (5.0-8.0); Protein,Urine Negative (Negative); Specific Gravity,Urine 1.012 (1.001-1.035); Squamous Epithelial Cell,Urine <1 /hpf (0-4); Urobilinogen,Urine <2.0 mg/dL (<2.0); WBC,Urine 1 /hpf (0-5)
[2017-07-13] MEDS ORDERED: SODIUM CHLORIDE 0.9% 1,000 ML IV SCH (06:00)
--- NOTE | 2017-07-13 06:11 | CT ---
EXAM: CT Head Without Intravenous Contrast CLINICAL HISTORY: Reason: Pain TECHNIQUE: Axial computed tomography images of the head/brain without intravenous contrast. CTDI is 57.40 mGy and DLP is 1029.90 mGy-cm. This CT exam was performed using one or more of the following dose reduction techniques: automated exposure control, adjustment of the mA and/or kV according to patient size, and/or use of iterative reconstruction technique. COMPARISON: CT head on 05/21/2017 FINDINGS: Brain: No acute infarct or hemorrhage. No extra-axial fluid collection. No mass effect or midline shift. Ventricles and sulci: Normal. No ventriculomegaly or intraventricular hemorrhage. Skull: Normal. No bony lesion or fracture. Subcutaneous tissues: Normal. Sinuses: Decreased fluid in the right maxillary sinus. Minimal mucosal thickening in the maxillary sinuses. Mastoid air cells: Trace fluid in the inferior mastoid air cells. Orbits: Grossly unremarkable. Other: Atherosclerotic calcifications of the intracranial vasculature. IMPRESSION: No acute intracranial abnormality.
--- NOTE | 2017-07-13 06:16 | XR ---
EXAM: XR Chest, 2 Views CLINICAL HISTORY: Reason: difficulty breathing TECHNIQUE: Frontal and lateral views of the chest. COMPARISON: Chest radiograph on 05/27/2017 FINDINGS: Lungs/pleura: Slightly decreased interstitial and hazy opacities throughout the lungs. Heart/mediastinum: Stable mildly enlarged cardiac silhouette. Soft tissues: Unremarkable. Bones: No acute fracture. IMPRESSION: Slightly decreased interstitial and hazy opacities throughout the lungs.
[2017-07-13] MEDS ORDERED: ALBUTEROL NEBULIZED 2.5 MG/3 ML INHALATION PRN (06:25)
[2017-07-13] MEDS ORDERED: NITROGLYCERIN SL TABS 0.4 MG TAB SUBLINGUAL PRN (06:25)
[2017-07-13 08:05] LABS: Glucose,Whole Blood 324 mg/dL (75-99)
[2017-07-13] MEDS: CYCLOBENZAPRINE 10 MG TAB PO SCH ×3 (08:09→20:34)
[2017-07-13] MEDS: LORATADINE 10 MG TAB PO SCH (08:09)
[2017-07-13] MEDS: INSULIN ASPART 100 UNIT/ML 1 ML 10 ML VIAL SQ SCH ×4 (08:13→20:36)
[2017-07-13] MEDS ORDERED: predniSONE 20 MG TAB PO SCH (09:00)
[2017-07-13] MEDS ORDERED: LEVOTHYROXINE 125 MCG TAB PO SCH (09:00)
[2017-07-13] MEDS ORDERED: NYSTATIN 100,000 UNIT/GM POWD 15 GM TOPICAL PRN (10:26)
[2017-07-13] MEDS ORDERED: INSULIN ASPART 100 UNIT/ML 1 ML 10 ML VIAL SQ PRN (10:26)
[2017-07-13] MEDS ORDERED: predniSONE 20 MG TAB PO PRN (10:26)
[2017-07-13] MEDS ORDERED: IBUPROFEN 600 MG TAB PO PRN (10:29)
[2017-07-13 10:55] LABS: Glucose,Whole Blood 472 mg/dL (75-99)
[2017-07-13 10:55] LABS: Glucose,Whole Blood 468 mg/dL (75-99)
[2017-07-13] MEDS: INSULN ASP PRT/INSULIN ASPART 100 UNIT/ML 10 ML VIAL SQ SCH ×2 (10:58→17:44)
[2017-07-13] MEDS ORDERED: methylPREDNISolone SOD SUCCI 125 MG/2 ML VIAL IV SCH (12:00)
[2017-07-13 12:25] LABS: Glucose,Whole Blood 404 mg/dL (75-99)
[2017-07-13] MEDS ORDERED: INSULIN ASPART 100 UNIT/ML 1 ML 10 ML VIAL SQ SCH (12:30)
--- NOTE | 2017-07-13 15:37 | P.CNPUL ---
History of Present Illness Consult date: 07/13/17 Reason for consult: dyspnea History of present illness: This is a pleasant 56-year-old female patient who follows with Dr. Mclaughlin as her primary care physician. Her comorbid conditions include diabetes, hypertension, hyperlipidemia and previous history of CVA with some residual right-sided numbness. She is morbidly obese, she is a ex-smoker and she quit smoking approximately 3-4 months back. She is known to have congestion heart failure and she was hospitalized for CHF exacerbation in May 2016 at [facility]. A cardiac stress test was done and did not show any acute reversible ischemia. She is known to have CHF with diastolic dysfunction with a preserved LV. The chest x-ray showed diffuse reticular nodular changes throughout the lung villarreal bilaterally. This raises the suspicion for interstitial lung disease versus CHF. Follow up chest x-ray is showing a similar findings of diffuse reticular another pulmonary infiltrates scattered throughout lung his bilaterally. No history of pulmonary fibrosis or Sarcoidosis. Clinically the patient has exertional dyspnea. However her shortness of breath is multifactorial. She gets back pain and pain in her lower extremities which limited ability to move around and ambulate. She has occasional cough and congestion. No significant sputum production. No hemoptysis. No pleurisy. No aspiration. No skin rashes. She is currently on oxygen at 2 L/m nasal cannula bringing her pulse ox of 98%. A spirometer this was done at her primary care physician's office on March 2017 showed an FEV1 of 56% of predicted and she was essentially restricted with a FEV1 FVC ratio of 83. She has chronic lower extremity edema and she is currently on Bumex.The patient had exposure to molds as the house and take was infested with molds and the patient had the area treated by an outside company. An accurate air-quality analysis has not been done. The patient underwent a bronchoscopy 05/12/2017 that was essentially complicated with some endobronchial bleeding and postop the patient was found to have a streptococcal pneumonia for which she was hospitalized and she was treated. She has also slow recovery from the anesthetics which caused some increased drowsiness and sleepiness and fatigue. In any rate, the patient is back to her baseline. She is on 3 L of oxygen nasal cannula. Chest x-ray still showing diffuse breath and pulmonary infiltrates. All of the microbial cultures of been negative. All of the serologic markers are negative with exception of a elevated Pavan level, and a transbronchial biopsy showed some chronic inflammatory changes yet the inflammatory pattern was not specific for any certain disease or disorder. Video-assisted thoracoscopic lung biopsy is an option which we are contemplating for now. A recent sputum culture on 2016 was positive for Staphylococcus aureus she was treated with IV meropenem for 10 days. She also follows up with Dr. Meza based on her multiple infections. She presented here again early this morning 07/13/2017 with complaints of dizziness and lightheadedness. She states she had been up to the bathroom was sitting on the toilet urinating when she went to stand up she was quite dizzy and weak and had to sit back down. She was subsequently helped to the kitchen chair by her son. At that time she developed a right-sided headache pain behind her right eye tingling and numbness in her first 2 digits of her right hand and right-sided leg numbness. She was brought to the emergency room for the same. An EKG revealed some T-wave abnormality in the lateral leads. There is some prolonged QT 487 ms. Computed tomography scan of the brain revealed no acute intracranial abnormality. Chest x-ray revealed some decreased interstitial hazy opacities throughout the lungs. No leukocytosis. Hemoglobin 12.7. Sodium 128. ProBNP 280, troponin 0.028. Influenza screen is negative. She is seen today in consultation on the regular medical floor. She is awake and alert in no acute distress. She denies any worsening shortness of breath. She continues with a loose nonproductive cough. No fever chills or night sweats. Maintaining good O2 saturations in the 90s on 2 L/m per nasal cannula. She is been afebrile. Hypertensive. She is still having ongoing issues with right-sided pain of her head and maxillary region. Review of Systems Constitutional Constitutional: Morbidly obese. No fever, no night sweats, no significant weight loss, exercise intolerance (stable weight) Eyes Eyes: no dry eyes, no vision change, no irritation ENMT Ears: no difficulty hearing, no ear pain Nose: no frequent nosebleeds, nose problems, sinus problems (chronic rhinitis) Mouth/Throat: Positive for dry mouth, no sore throat, no bleeding gums, no mouth ulcers, no teeth problems, snoring, , mouth breathing Cardiovascular Cardiovascular: no chest pain, no arm pain on exertion, no shortness of breath when lying down, no palpitations, no known heart murmur, shortness of breath when walking Respiratory Respiratory: Shortness of breath, cough and congestion. Gastrointestinal Gastrointestinal: no abdominal pain, no nausea, no vomiting, no constipation, normal appetite, no diarrhea, not vomiting blood, no dyspepsia, no GERD Genitourinary Genitourinary: no incontinence, no difficulty urinating, no hematuria, no increased frequency Musculoskeletal Musculoskeletal: no muscle aches, no muscle weakness, no swelling in the extremities, arthralgias/joint pain, back pain Integumentary Skin: no abnormal mole, no jaundice, no rashes, no laceration Neurologic Neurologic: Complaints of dizziness headedness, lower extremity weakness. Tingling and numbness in the right hand. Psychiatric Psych: no depression, no sleep disturbances, feeling safe in a relationship, no alcohol abuse, no anxiety, no hallucinations, no suicidal thoughts Endocrine Endocrine: no fatigue Hematologic/Lymphatic Hematologic/Lymphatic no swollen glands, no bruising, no excessive bleeding Allergic/Immunologic Allergy/Immunologic: Positive right sided sinus pressure, no itching, no hives, no frequent sneezing Past Medical History Past Medical History: Asthma, Heart Failure, CVA/TIA, Diabetes Mellitus, Hyperlipidemia, Hypertension, Thyroid Disorder Additional Past Medical History / Comment(s): Pt currently being treated for staph pneumonia with IV ABX at home, interstitial lung disease, multiple environmental and drug ALLERGIES, chronic sinusitis, stroke back in 2013 with some residual intermitent right-sided numbness and difficulty finding correct word at times, chronic hypoxic respiratory failure on oxygen 2 L/m nasal cannula ATC, hx. cellulitis both lower legs, chronic low back pain, History of Any Multi-Drug Resistant Organisms: None Reported Past Surgical History: Section Additional Past Surgical History / Comment(s): D&C, bronchoscopy, LUE picc line Past Anesthesia/Blood Transfusion Reactions: Previous Problems w/ Anesthesia Additional Past Anesthesia/Blood Transfusion Reaction / Comment(s): States she has a "hard time coming out of anesthesia." Smoking Status: Former smoker - Past Family History Mother Family Medical History: Cancer Additional Family Medical History / Comment(s): pulmonary fibrosis, SKIN CANCER. Mother at the age of 79yrs. Father Family Medical History: Congestive Heart Failure (CHF), COPD, Myocardial Infarction (CA) Additional Family Medical History / Comment(s): Father at the age of 75yrs. Medications and Allergies Home Medications Medication Instructions Recorded Confirmed Type Cetirizine HCl [Zyrtec] 10 mg PO BID PRN 08/20/14 07/13/17 History Cyclobenzaprine [Flexeril] 10 mg PO TID 08/20/14 07/13/17 History EPINEPHrine (Auto Inject) [Epipen] 0.3 mg IM ONCE PRN 08/20/14 07/13/17 History Bumetanide [BUMEX] 1 mg PO BID 06/08/16 07/13/17 History Nitroglycerin Sl Tabs [Nitrostat] 0.4 mg SUBLINGUAL Q5M PRN #25 tab 06/09/1609/25 Rx Nystatin 100,000 Unit/gm Powd 1 applic TOPICAL BID PRN applic 05/13/17 Rx [Mycostatin Powder] Pseudoephedrine 12Hr [Sudafed 12 120 mg PO DAILY PRN 05/15/17 07/13/17 History Hour] predniSONE 20 mg PO DAILY PRN 05/15/17 07/13/17 History Insulin Aspart Protam & Aspart 55 unit SQ AC-BID 06/29/17 07/13/17 History [NovoLOG MIX 70-30 Flexpen] Levalbuterol Nebulized [Xopenex 1.25 mg INHALATION RT-QID PRN 06/29/17 07/13/17 History Nebulized] Montelukast [Singulair] 10 mg PO HS 06/29/17 07/13/17 History Aspirin EC [Ecotrin] 325 mg PO DAILY 07/13/17 07/13/17 History Ibuprofen [Motrin] 800 mg PO Q6H PRN 07/13/17 07/13/17 History Insulin Aspart [NovoLOG Flexpen] 15 units SQ AC-TID PRN 07/13/17 07/13/17 History Magnesium Oxide [Mag-Ox] 250 mg PO DAILY 07/13/17 07/13/17 History Synthroid (Shiv) 125 mcg PO DAILY 07/13/17 07/13/17 History Allergies Allergy/AdvReac Type Severity Reaction Status Date / Time adhesive Allergy Rash/Hives Verified 07/13/17 06:38 adhesive tape Allergy Rash/Hives Verified 07/13/17 06:38 aspartame Allergy Unknown Verified 07/13/17 06:38 bee pollen Allergy Anaphylaxis Verified 07/13/17 06:38 Beta-Blockers Allergy Rash/Hives Verified 07/13/17 06:38 (Beta-Adrenergic Bloc bupropion [From Zyban] Allergy Hallucinati Verified 07/13/17 06:38 ons bupropion HCl [From Zyban] Allergy Hallucinati Verified 07/13/17 06:38 ons cefaclor [From Ceclor] Allergy Rash/Hives Verified 07/13/17 06:38 cephalexin [From Keflex] Allergy Rash/Hives Verified 07/13/17 06:38 cephalexin monohydrate Allergy Rash/Hives Verified 07/13/17 06:38 [From Keflex] cider vinegar Allergy Unknown Verified 07/13/17 06:38 cinnamon Allergy Unknown Verified 07/13/17 06:38 ciprofloxacin [From Cipro] Allergy Swelling Verified 07/13/17 06:38 ciprofloxacin HCl Allergy Swelling Verified 07/13/17 06:38 [From Cipro] citalopram hydrobromide Allergy Unknown Verified 07/13/17 06:38 [From Celexa] clindamycin Allergy Unknown Verified 07/13/17 06:38 clindamycin HCl Allergy Rash/Hives Verified 07/13/17 06:38 [From Cleocin] clindamycin palmitate HCl Allergy Rash/Hives Verified 07/13/17 06:38 [From Cleocin] clindamycin phosphate Allergy Rash/Hives Verified 07/13/17 06:38 [From Cleocin] codeine Allergy Unknown Verified 07/13/17 06:38 colesevelam HCl Allergy Unknown Verified 07/13/17 06:38 [From WelChol] diphenhydramine Allergy Rash/Hives Verified 07/13/17 06:38 [From Benadryl] diphenhydramine HCl Allergy Itching Verified 07/13/17 06:38 [From Benadryl] erythromycin base Allergy Rash/Hives Verified 07/13/17 06:38 [From E-Mycin] furosemide [From Lasix] Allergy Rash/Hives Verified 07/13/17 06:38 horse dander Allergy Wheezing Verified 07/13/17 06:38 insulin detemir Allergy Itching Verified 07/13/17 06:38 [From Levemir] Iodinated Contrast- Oral and Allergy Swelling Verified 07/13/17 06:38 IV Dye iodine Allergy Swelling Verified 07/13/17 06:38 labetalol HCl [From Trandate] Allergy Rash/Hives Verified 07/13/17 06:38 latex Allergy Anaphylaxis Verified 07/13/17 06:38 levothyroxine sodium Allergy Rash/Hives Verified 07/13/17 06:38 [From Levothroid] metformin HCl Allergy Chest Pain Verified 07/13/17 06:38 [From Glucophage] Milk Containing Products Allergy Swelling Verified 07/13/17 06:38 Mushroom Allergy SWELLING Verified 07/13/17 06:38 OF TONGUE,SCRATCHING FEELING nortriptyline HCl Allergy Rash/Hives Verified 07/13/17 06:38 [From Pamelor] Penicillins Allergy Anaphylaxis Verified 07/13/17 06:38 Pork/Porcine Containing Allergy Swelling Verified 07/13/17 06:38 Products [Pork] shellfish derived Allergy SEVERE Verified 07/13/17 06:38 ITCHING ,SWELLING OF THROAT simvastatin Allergy Swelling Verified 07/13/17 06:38 spironolactone Allergy ITCHING Verified 07/13/17 06:38 [From Aldactone] AND RED RASH strawberry Allergy Rash/Hives Verified 07/13/17 06:38 Sulfa (Sulfonamide Allergy WAS TOLD Verified 07/13/17 06:38 Antibiotics) BY DR NOT TO TAKE tetracycline Allergy Anaphylaxis Verified 07/13/17 06:38 thyroid,pork Allergy Rapid Verified 07/13/17 06:38 [From [place] Thyroid] Heart Rate BAND AID Allergy BLISTERS Uncoded 06/29/17 11:23 CODEINE Allergy Abdominal Uncoded 06/29/17 11:23 Pain METALS Allergy "FILLINGS Uncoded 06/29/17 11:23 ROTTED MY TEETH" VINEGAR Allergy Swelling Uncoded 06/29/17 11:23 Physical Exam Vitals: Vital Signs Temp Pulse Pulse Resp BP BP Pulse Ox 07/13/17 08:07 96.9 F L 92 18 169/93 93 L 07/13/17 06:46 82 18 175/70 94 L 07/13/17 04:19 68 18 171/70 94 L 07/13/17 03:56 97.7 F 97 25 H 201/84 94 L Intake and Output 07/12/17 07/13/17 07/13/17 22:59 06:59 14:59 Other: Weight 120.656 kg General Appearance no diaphoresis, no respiratory distress, speech not interrupted by breaths, no dyspnea, no pallor, not cachectic, well nourished, appears well, obesity HEENT no pursed lip breathing, no jugular venous distention, no mucous membrane cyanosis, no perioral cyanosis, mallampati classification: class 1, Mallampati Classification: Class 4 Chest no retractions, no sternocleidomastoid muscle contractions, no supraclavicular retractions, no intercostal retractions, no decreased air movement, no rhonchi, no hyperinflation, (normal) adventitious sounds: rales / crackles: bilaterally: midlung villarreal, barrel chest, prolonged expiratory wheezing, decreased air movement Heart no right ventricular heave, no distant heart sounds, no s3 gallop, (normal ) jugular vein: jugular venous distention: by 0cm, (normal) jugular vein GI bowel sounds: hyperactive (borborygmi), bowel sounds: diminished or absent Extremities no cyanosis, no clubbing, edema (trace edema) Neurologic no decreased mental status, no somnolence, no confusion Assisstive Devices: ambulates with no assitive devices, ambulates with cane, ambulates with walker Gait and Mobility: gait WNL, full weight bearing, unsteady Results - Laboratory Findings CBC and BMP: 07/13/17 04:06 07/13/17 04:06 PT/INR, D-dimer PT 10.1 sec (9.0-12.0) 07/13/17 04:06 INR 1.0 (<1.2) 07/13/17 04:06 Abnormal lab findings: Abnormal Labs 07/13/17 07/13/17 07/13/17 04:06 04:06 04:06 RDW 15.8 H Sodium 128 L Chloride 91 L Carbon Dioxide 31 H Glucose 274 H POC Glucose (mg/dL) Total Creatine Kinase 205 H CK-MB (CK-2) 4.0 H* Albumin 3.1 L Urine Appearance Urine Glucose (UA) Urine Mucus 07/13/17 07/13/17 05:22 08:00 RDW Sodium Chloride Carbon Dioxide Glucose POC Glucose (mg/dL) 324 H Total Creatine Kinase CK-MB (CK-2) Albumin Urine Appearance Cloudy H Urine Glucose (UA) 2+ H Urine Mucus Rare H - Diagnostic Findings Chest x-ray: image reviewed Assessment and Plan Plan: 1 diffuse infiltrative lung disease The patient has diffuse reticular nodular pulmonary infiltrates bilaterally. In addition, the CAT scan of the chest showed mediastinal lymphadenopathy and a small left-sided pleural effusion. The possibilities would include chronic idiopathic pneumonias, chronic smoking-related interstitial lung disease, sarcoidosis, hypersensitivity pneumonitis, malignancy. The patient already has hypoxic respiratory failure and she has severe restrictive lung disease. As such , a diagnostic bronchoscopy was done in the operating room. Based on the above mentioned, the patient underwent a bronchoscopy and the cultures showed strep pneumonia and the patient was treated for the pneumococcal pneumonia. PAVAN level was elevated. The rest of the serologic markers were negative. The transbronchial biopsy did not show any malignancy. There was chronic inflammatory changes within the lung parenchyma yet the pattern was not specific for any disease or disorder and we are contemplating a video-assisted thoracoscopic biopsy at a later stage. 2 MSSA in the sputum/MSSA pneumonia 3 moderate chronic obstructive pulmonary disease Bilateral emphysema secondary to [id number] smoking history 4 chronic hypoxemic respiratory failure, oxygen at 2 L/m nasal cannula 5 morbid obesity 6 congestive heart failure, essentially of a diastolic dysfunction with preserved LV of 50% 7 right-sided cephalgia with tingling and numbness of the digits of the right hand lower extremity weakness more so on the right, computed tomography scan of the brain revealed no intracranial abnormality. Rule out an underlying hypertensive encephalopathy knowing that the patient presented with significantly elevated blood pressure at a time of admission. Plan The patient was seen and evaluated. Her chest x-ray and labs were reviewed. The follow-up computed tomography scan from June 2017 was also reviewed and there is still some ongoing interstitial changes along with background COPD. An open thoracoscopic wedge lung biopsy will be needed later stage to characterize abnormalities. Meanwhile, She remains on bronchodilators, Singulair, prednisone. She has completed her course of antibiotics for the MSSA. We will continue to monitor her and make further recommendations based on her clinical status. Will need a tighter blood pressure control. Time with Patient: Greater than 30
[2017-07-13 17:47] LABS: Glucose,Whole Blood 387 mg/dL (75-99)
[2017-07-13] MEDS ORDERED: PSEUDOEPHEDRINE 12HR 120 MG TABLET.ER PO PRN (19:37)
[2017-07-13] MEDS: LEVALBUTEROL 1.25 MG/3 ML INHALATION PRN (20:04)
[2017-07-13 20:29] LABS: Glucose,Whole Blood 387 mg/dL (75-99)
[2017-07-13] MEDS: BUMETANIDE 1 MG TAB PO SCH (20:34)
[2017-07-13] MEDS: MONTELUKAST 10 MG TAB PO SCH (20:36)
[2017-07-13] MEDS: methylPREDNISolone SOD SUCCI 125 MG/2 ML VIAL IV SCH ×2 (20:36→23:10)
[2017-07-13] MEDS: IBUPROFEN 800 MG TAB PO PRN (20:41)
--- NOTE | 2017-07-13 22:32 | HP ---
HISTORY AND PHYSICAL CHIEF COMPLAINTS: Shortness of breath and weakness. HISTORY OF PRESENT ILLNESS: This 56-year-old woman with a past medical history of asthma, interstitial lung disease, diabetes, hypertension, hyperlipidemia, also had recent Strep pneumoniae. The patient complains of weakness and tiredness. The patient also had chronic hypoxic respiratory failure. The patient is followed by Dr. Mclaughlin in the outpatient setting. There is no history of any fever, rigor or chills. No history of headache, loss of consciousness, seizures. PAST HISTORY: 1. Asthma. 2. CHF. 3. Diabetes mellitus. 4. Hypertension. 5. Hyperlipidemia. 6. Hypothyroidism. HOME MEDICATIONS: 1. Xopenex 1.25 q.i.d. p.r.n. 2. Prednisone 20 mg daily p.r.n. 3. Magnesium oxide 250 mg p.o. daily. 4. Zyrtec 10 mg p.o. b.i.d. p.r.n. 5. Bumex 1 mg p.o. b.i.d. 6. Nitrostat 0.4 sublingually q.5 p.r.n. 7. EpiPen 0.3 once p.r.n. 8. Ecotrin 325 mg daily. 9. Sudafed 120 mg p.o. daily p.r.n. 10.Motrin 800 mg q.6 p.r.n. 11.Flexeril 10 mg p.o. t.i.d. 12.Singular 10 mg at bedtime. 13.NovoLog Mix 70/30, 55 units before meals b.i.d. 14.NovoLog Mix 15 units before meals t.i.d. p.r.n. 15.Synthroid 125 mcg p.o. daily. 16.Nystatin 1 application b.i.d. p.r.n. ALLERGIES: MULTIPLE ALLERGIES, INCLUDIN. ADHESIVE TAPE. 2. ASPARTAME. 3. BEE POLLEN. 4. BUPROPION. 5. CEPHALEXIN. 6. CINNAMON. 7. CIPROFLOXACIN. 8. HORSE DANDER. 9. LATEX. 10.SOME MUSHROOMS. 11.SIMVASTATIN. FAMILY HISTORY: History of myocardial infarction, COPD, CHF. SOCIAL HISTORY: Previous history of smoking. No history of alcohol. REVIEW OF SYSTEMS: ENT: No diminished hearing. No diminished vision. CARDIOVASCULAR SYSTEM: As mentioned earlier. RESPIRATORY SYSTEM: As mentioned earlier. GI: No nausea, vomiting. : No dysuria or retention. NERVOUS SYSTEM: No numbness, weakness. ALLERGY/IMMUNOLOGY: No asthma, hayfever. MUSCULOSKELETAL: As mentioned earlier. HEMATOLOGY/ONCOLOGY: No history of anemia. ENDOCRINE: As mentioned earlier. CONSTITUTIONAL: As mentioned earlier. DERMATOLOGY: Negative. RHEUMATOLOGY: Negative. PSYCHIATRY: As mentioned earlier. PHYSICAL EXAMINATION: Patient alert and oriented x3. Pulse 99, blood pressure 140/75, respiration 20, temperature 97 degrees, pulse ox 94% on 2 L. HEENT: Conjunctivae normal. Oral mucosa moist. NECK: No jugular venous distention. No carotid bruit. No lymph node enlargement. CARDIOVASCULAR SYSTEM: S1, S2 muffled. No S3. No S4. RESPIRATORY SYSTEM: Breath sounds diminished at the bases. Bilateral scattered rhonchi and crackles. ABDOMEN: Soft. Non-tender. No mass palpable. Obese. LEGS: No edema. No swelling. NERVOUS SYSTEM: Higher functions as mentioned earlier. Moves all 4 limbs. No focal motor or sensory deficit. LYMPHATICS: No lymph node palpable in neck, axillae or groin. SKIN: No ulcer, rash, bleeding. LABS: CBC within normal limits. Sodium 128, glucose 274. UA noted. ASSESSMENT: 1. Shortness of breath for evaluation, possibly interstitial fibrosis exacerbation with acute purulent tracheobronchitis. 2. Possible chronic obstructive pulmonary disease, acute exacerbation. 3. History of recent pneumococcal pneumonia. 4. Multiple allergies. 5. History of bronchoscopy and biopsy. 6. Hyponatremia. 7. History of asthma. 8. History of congestive heart failure. 9. Cerebrovascular accident, transient ischemic attack. 10.Diabetes mellitus, type 2. 11.Hypertension. 12.Hyperlipidemia. 13.Hypothyroidism. 14.Remote history of nicotine dependence. 15.Recent pneumonia. RECOMMENDATIONS AND DISCUSSION: In this 56-year-old woman who presented with multiple complex medical issues., we will we will monitor the patient closely, continue the current medications, continue with symptomatic treatment. At this time I would recommend bronchodilators. The patient had Strep pneumoniae from the sputum previously, but the most recent cultures done on 06/16 showed MSSA. We will continue to monitor. Consult Dr. Guzman. The exact etiology of the multiple complex medical issues is undetermined at this time. Please refer to the previous dictation for details. I recommend steroids as well as bronchodilators and empiric antibiotics. The prognosis is guarded because of the multiple complex medical issues. Further recommendations to follow. The patient has multiple allergies to antibiotics, so we will wait for the cultures before we embark on treatment. Discussed with the patient, who understands and agrees. DARA / IJN: [id number] /
[2017-07-14] MEDS: methylPREDNISolone SOD SUCCI 125 MG/2 ML VIAL IV SCH ×2 (05:40→12:15)
[2017-07-14] MEDS: SYNTHROID 125 MCG PO SCH (05:41)
[2017-07-14] MEDS ORDERED: SYNTHROID 125 MCG PO SCH (06:30)
[2017-07-14 07:47] LABS: Glucose,Whole Blood 372 mg/dL (75-99)
[2017-07-14] MEDS: MAGNESIUM OXIDE 400 MG TAB PO SCH (08:06)
[2017-07-14] MEDS: CYCLOBENZAPRINE 10 MG TAB PO SCH ×3 (08:06→20:14)
[2017-07-14] MEDS: INSULN ASP PRT/INSULIN ASPART 100 UNIT/ML 10 ML VIAL SQ SCH ×2 (08:06→17:59)
[2017-07-14] MEDS: ASPIRIN 325 MG TAB PO SCH (08:06)
[2017-07-14] MEDS: BUMETANIDE 1 MG TAB PO SCH ×2 (08:06→20:18)
[2017-07-14] MEDS: LORATADINE 10 MG TAB PO SCH (08:06)
[2017-07-14] MEDS: INSULIN ASPART 100 UNIT/ML 1 ML 10 ML VIAL SQ SCH ×4 (08:07→18:15)
[2017-07-14] MEDS: IBUPROFEN 800 MG TAB PO PRN ×3 (08:14→21:16)
[2017-07-14 09:22] LABS: Anion Gap 9 mmol/L; Blood Urea Nitrogen 21 mg/dL (7-17); Calcium 9.4 mg/dL (8.4-10.2); Carbon Dioxide 27 mmol/L (22-30); Chloride 94 mmol/L (98-107); Glucose 391 mg/dL (74-99); Potassium 5.6 mmol/L (3.5-5.1); Sodium 130 mmol/L (137-145)
[2017-07-14] MEDS: LEVALBUTEROL 1.25 MG/3 ML INHALATION PRN ×2 (09:23→19:44)
[2017-07-14 09:33] LABS: Basophils % (A) 0 %; Eosinophils % (A) 0 %; HCT 39.3 % (34.0-46.0); HGB 12.9 gm/dL (11.4-16.0); Lymphocytes # (A) 1.2 k/uL (1.0-4.8); Lymphocytes % (A) 7 %; MCHC 32.9 g/dL (31.0-37.0); MCV 88.3 fL (80.0-100.0); Mean Platelet Volume 7.7; Monocytes # (A) 0.2 k/uL (0-1.0); Monocytes % (A) 1 %; Neutrophils # (A) 15.3 k/uL (1.3-7.7); Neutrophils % (A) 92 %; Platelet Count 306 k/uL (150-450); RBC 4.45 m/uL (3.80-5.40); RDW 13.9 % (11.5-15.5); WBC 16.7 k/uL (3.8-10.6)
[2017-07-14 12:33] LABS: Glucose,Whole Blood 334 mg/dL (75-99)
[2017-07-14] MEDS ORDERED: SODIUM POLYSTYRENE SULFONATE 15 GM/60 ML BOTTLE PO STA (13:02)
[2017-07-14] MEDS: MEROPENEM 1 GM in SODIUM CHLORIDE 0.9% 100 ML IVPB SCH ×2 (15:20→23:20)
[2017-07-14] MEDS: methylPREDNISolone SOD SUCCI 40 MG/ML 1 ML VIAL IV SCH ×2 (15:20→23:20)
[2017-07-14] MEDS ORDERED: SODIUM POLYSTYRENE SULFONATE 15 GM/60 ML BOTTLE PO ONE (16:19)
--- NOTE | 2017-07-14 17:22 | P.PN ---
Subjective Progress Note Date: 07/14/17 This is a pleasant 56-year-old female patient who follows with Dr. Mclaughlin as her primary care physician. Her comorbid conditions include diabetes, hypertension, hyperlipidemia and previous history of CVA with some residual right-sided numbness. She is morbidly obese, she is a ex-smoker and she quit smoking approximately 3-4 months back. She is known to have congestion heart failure and she was hospitalized for CHF exacerbation in May 2016 at [facility]. A cardiac stress test was done and did not show any acute reversible ischemia. She is known to have CHF with diastolic dysfunction with a preserved LV. The chest x-ray showed diffuse reticular nodular changes throughout the lung villarreal bilaterally. This raises the suspicion for interstitial lung disease versus CHF. Follow up chest x-ray is showing a similar findings of diffuse reticular another pulmonary infiltrates scattered throughout lung his bilaterally. No history of pulmonary fibrosis or Sarcoidosis. Clinically the patient has exertional dyspnea. However her shortness of breath is multifactorial. She gets back pain and pain in her lower extremities which limited ability to move around and ambulate. She has occasional cough and congestion. No significant sputum production. No hemoptysis. No pleurisy. No aspiration. No skin rashes. She is currently on oxygen at 2 L/m nasal cannula bringing her pulse ox of 98%. A spirometer this was done at her primary care physician's office on March 2017 showed an FEV1 of 56% of predicted and she was essentially restricted with a FEV1 FVC ratio of 83. She has chronic lower extremity edema and she is currently on Bumex.The patient had exposure to molds as the house and take was infested with molds and the patient had the area treated by an outside company. An accurate air-quality analysis has not been done. The patient underwent a bronchoscopy 05/12/2017 that was essentially complicated with some endobronchial bleeding and postop the patient was found to have a streptococcal pneumonia for which she was hospitalized and she was treated. She has also slow recovery from the anesthetics which caused some increased drowsiness and sleepiness and fatigue. In any rate, the patient is back to her baseline. She is on 3 L of oxygen nasal cannula. Chest x-ray still showing diffuse breath and pulmonary infiltrates. All of the microbial cultures of been negative. All of the serologic markers are negative with exception of a elevated Pavan level, and a transbronchial biopsy showed some chronic inflammatory changes yet the inflammatory pattern was not specific for any certain disease or disorder. Video-assisted thoracoscopic lung biopsy is an option which we are contemplating for now. A recent sputum culture on 2016 was positive for Staphylococcus aureus she was treated with IV meropenem for 10 days. She also follows up with Dr. Meza based on her multiple infections. She presented here again early this morning 07/13/2017 with complaints of dizziness and lightheadedness. She states she had been up to the bathroom was sitting on the toilet urinating when she went to stand up she was quite dizzy and weak and had to sit back down. She was subsequently helped to the kitchen chair by her son. At that time she developed a right-sided headache pain behind her right eye tingling and numbness in her first 2 digits of her right hand and right-sided leg numbness. She was brought to the emergency room for the same. An EKG revealed some T-wave abnormality in the lateral leads. There is some prolonged QT 487 ms. Computed tomography scan of the brain revealed no acute intracranial abnormality. Chest x-ray revealed some decreased interstitial hazy opacities throughout the lungs. No leukocytosis. Hemoglobin 12.7. Sodium 128. ProBNP 280, troponin 0.028. Influenza screen is negative. She is seen today in consultation on the regular medical floor. She is awake and alert in no acute distress. She denies any worsening shortness of breath. She continues with a loose nonproductive cough. No fever chills or night sweats. Maintaining good O2 saturations in the 90s on 2 L/m per nasal cannula. She is been afebrile. Hypertensive. She is still having ongoing issues with right-sided pain of her head and maxillary region. On 07/14/2017, the patient is producing yellowish sputum. The patient was seen by hospitalist. The patient was restarted on IV Merrem. ID consultation is still pending. The patient has a better control her blood pressure. No other new complaints otherwise for now. Objective - Vital Signs Vital signs: Vital Signs Temp 98.1 F 07/14/17 15:00 Pulse 100 07/14/17 15:00 Resp 16 07/14/17 15:00 BP 169/71 07/14/17 15:00 Pulse Ox 95 07/14/17 15:00 Intake & Output 07/13/17 07/14/17 07/14/17 18:59 06:59 18:59 Weight 120.656 kg Other: Voiding Method Toilet # Voids 3 1 3 - Exam General Appearance no diaphoresis, no respiratory distress, speech not interrupted by breaths, no dyspnea, no pallor, not cachectic, well nourished, appears well, obesity HEENT no pursed lip breathing, no jugular venous distention, no mucous membrane cyanosis, no perioral cyanosis, mallampati classification: class 1, Mallampati Classification: Class 4 Chest no retractions, no sternocleidomastoid muscle contractions, no supraclavicular retractions, no intercostal retractions, no decreased air movement, no rhonchi, no hyperinflation, (normal) adventitious sounds: rales / crackles: bilaterally: midlung villarreal, barrel chest, prolonged expiratory wheezing, decreased air movement Heart no right ventricular heave, no distant heart sounds, no s3 gallop, (normal ) jugular vein: jugular venous distention: by 0cm, (normal) jugular vein GI bowel sounds: hyperactive (borborygmi), bowel sounds: diminished or absent Extremities no cyanosis, no clubbing, edema (trace edema) Neurologic no decreased mental status, no somnolence, no confusion Assisstive Devices: ambulates with no assitive devices, ambulates with cane, ambulates with walker Gait and Mobility: gait WNL, full weight bearing, unsteady - Labs CBC & Chem 7: 07/14/17 08:18 07/14/17 08:18 Labs: Abnormal Lab Results - Last 24 Hours (Table) 07/13/17 07/13/17 07/14/17 Range/Units 16:56 20:27 07:05 WBC (3.8-10.6) k/uL Neutrophils # (1.3-7.7) k/uL Sodium (137-145) mmol/L Potassium (3.5-5.1) mmol/L Chloride (98-107) mmol/L BUN (7-17) mg/dL Glucose (74-99) mg/dL POC Glucose (mg/dL) 387 H 387 H 372 H (75-99) mg/dL 07/14/17 07/14/17 07/14/17 Range/Units 08:18 08:18 12:28 WBC 16.7 H (3.8-10.6) k/uL Neutrophils # 15.3 H (1.3-7.7) k/uL Sodium 130 L (137-145) mmol/L Potassium 5.6 H (3.5-5.1) mmol/L Chloride 94 L (98-107) mmol/L BUN 21 H (7-17) mg/dL Glucose 391 H (74-99) mg/dL POC Glucose (mg/dL) 334 H (75-99) mg/dL Assessment and Plan Plan: 1 COPD along with a diffuse infiltrative lung disease with an underlying interstitial renal disease is suspected. Patient completed IV Merrem on outpatient basis for a PICC line. Currently she is having ongoing sputum production and sputum was recultured today. Patient was restarted back on Merrem. 2 MSSA in the sputum/MSSA pneumonia 3 moderate chronic obstructive pulmonary disease Bilateral emphysema secondary to [id number] smoking history 4 chronic hypoxemic respiratory failure, oxygen at 2 L/m nasal cannula 5 morbid obesity 6 congestive heart failure, essentially of a diastolic dysfunction with preserved LV of 50% 7 right-sided cephalgia with tingling and numbness of the digits of the right hand lower extremity weakness more so on the right, computed tomography scan of the brain revealed no intracranial abnormality. Rule out an underlying hypertensive encephalopathy knowing that the patient presented with significantly elevated blood pressure at a time of admission. Plan Awaiting sputum analysis. Continue IV Merrem. We'll continue to follow.
[2017-07-14 17:23] LABS: Glucose,Whole Blood 426 mg/dL (75-99)
[2017-07-14] MEDS ORDERED: INSULIN REGULAR BOLUS (FROM DRIP BAG) IV ONE (17:26)
[2017-07-14] MEDS ORDERED: INSULIN REGULAR 100 UNIT in SODIUM CHLORIDE 0.9% 100 ML IV SCH (17:30)
[2017-07-14 18:06] LABS: Glucose,Whole Blood 384 mg/dL (75-99)
[2017-07-14 18:53] LABS: Glucose,Whole Blood 412 mg/dL (75-99)
[2017-07-14 19:53] LABS: Glucose,Whole Blood 344 mg/dL (75-99)
[2017-07-14 20:14] LABS: Glucose,Whole Blood 275 mg/dL (75-99)
[2017-07-14] MEDS: MONTELUKAST 10 MG TAB PO SCH (20:14)
[2017-07-14 20:47] LABS: Glucose,Whole Blood 233 mg/dL (75-99)
[2017-07-14] MEDS ORDERED: hydrOXYzine HCL 25 MG TAB PO PRN (23:17)
[2017-07-14] MEDS ORDERED: hydrOXYzine HCL 25 MG TAB PO STA (23:17)
[2017-07-15 00:01] LABS: Glucose,Whole Blood 172 mg/dL (75-99)
--- NOTE | 2017-07-15 01:12 | P.CONS ---
History of Present Illness - Reason for Consult Consult date: 07/14/17 - Chief Complaint worsening shortness of breath - History of Present Illness 56-year-old female who follows with Dr. Neelam Chan in who was recently hospitalized last month which point in time she had significant difficulties after her bronchoscopy. The patient has evidence of extensive lung disease that appears to be interstitial in nature. Etiology isn't workup as to the possibility of smoking-induced disease versus another disease state. Workup is in process and has been not diagnostic so far. The patient had some bleeding after her bronchoscopy and eventually improved. She ever develops enterococcus pneumoniae pneumonia and responded well to a course of meropenem. She was treated for 5 days and had good resolution of her pneumonia. However several weeks later she again felt very poorly and developed significant shortness of breath with cough and sputum production. Sputum culture had evidence of MSSA. She consequently was seen by her computer systems software architect a PICC line was placed and outpatient intravenous antibiotic therapy with Merrem was started. She was treated for several days. At end of therapy she was feeling slightly better. But now is again had recurrence of her significant symptoms in that she was very short of breath having cough and sputum production. With ongoing MSSA pneumonia she was admitted, Merrem was restarted in infectious diseases consultation was requested. Patient is an placed on steroid therapy and with that her blood sugars became considerably elevated. Insulin drip was started and she did develop a skin rash. She does relate that she has an ALLERGY to Humulin but not to Humalog. She is still quite itchy and miserable. She's not been sleeping well. She continues to have great anxiety about her lung disease. The overall goal will be for an open lung biopsy be performed to determine if any other specific interventions can be performed or if this is simply just advanced emphysema from her many years of smoking. As noted she wears home O2 and is generally steroid dependent at this time. Review of Systems Constitutional: Denies chills, Denies fever Eyes: denies blurred vision, denies pain Ears, nose, mouth and throat: Denies headache, Denies sore throat Cardiovascular: Denies chest pain, Denies lightheadedness, Denies shortness of breath, Denies syncope Respiratory: Reports cough, Reports cough with sputum, Reports dyspnea, Reports no furtherhemoptysis, Reports home oxygen Gastrointestinal: Denies abdominal pain, Denies diarrhea, Denies nausea, Denies vomiting Genitourinary: Denies dysuria, Denies hematuria Musculoskeletal: Denies myalgias Integumentary: is developed a pruritic rash is noted. No skin lesions otherwise Neurological: Denies numbness, Denies weakness Psychiatric: Denies anxiety, Denies depression Endocrine: Denies fatigue, Denies weight sagastume Past Medical History Past Medical History: Asthma, Heart Failure, CVA/TIA, Diabetes Mellitus, Hyperlipidemia, Hypertension, Thyroid Disorder Additional Past Medical History / Comment(s): Pt currently being treated for staph pneumonia with IV ABX at home, interstitial lung disease, multiple environmental and drug ALLERGIES, chronic sinusitis, stroke back in 2013 with some residual intermitent right-sided numbness and difficulty finding correct word at times, chronic hypoxic respiratory failure on oxygen 2 L/m nasal cannula ATC, hx. cellulitis both lower legs, chronic low back pain, History of Any Multi-Drug Resistant Organisms: None Reported Past Surgical History: Section Additional Past Surgical History / Comment(s): D&C, bronchoscopy, LUE picc line Past Anesthesia/Blood Transfusion Reactions: Previous Problems w/ Anesthesia Additional Past Anesthesia/Blood Transfusion Reaction / Comm: States she has a "hard time coming out of anesthesia." Additional Psychological History / Comment(s): Patient was a smoker for 40 years and quit in January 2017. She denies any medical marijuana, marijuana, street drug or alcohol use. She lives at home and her 2 adult sons live with her. There are dogs in the home. Smoking Status: Former smoker - Past Family History Mother Family Medical History: Cancer Additional Family Medical History / Comment(s): pulmonary fibrosis, SKIN CANCER. Mother at the age of 79yrs. Father Family Medical History: Congestive Heart Failure (CHF), COPD, Myocardial Infarction (ME) Additional Family Medical History / Comment(s): Father at the age of 75yrs. Medications and Allergies Home Medications and Allergies Comment(s): Current Medications Aspirin (Aspirin) 325 mg PO DAILY [facility] Last Admin: 07/14/17 08:06 Dose: 325 mg Bumetanide (Bumex) 1 mg PO BID [facility] Last Admin: 07/14/17 20:18 Dose: Not Given Cyclobenzaprine HCl (Flexeril) 10 mg PO TID [facility] Last Admin: 07/14/17 20:14 Dose: 10 mg Hydroxyzine HCl (Atarax) 25 mg PO TID PRN PRN Reason: Itching Meropenem 1 gm/ Sodium (Chloride) 100 mls @ 200 mls/hr IVPB Q8HR [facility] Last Admin: 07/14/17 23:20 Dose: 200 mls/hr Ibuprofen (Motrin) 800 mg PO Q6H PRN PRN Reason: Pain Last Admin: 07/14/17 21:16 Dose: 800 mg Insulin Aspart (Novolog) 16 unit 0.13 unit/kg (16 unit) SQ AC-TID [facility] Last Admin: 07/14/17 18:15 Dose: Not Given Loratadine (Claritin) 10 mg PO DAILY [facility] Last Admin: 07/14/17 08:06 Dose: 10 mg Magnesium Oxide (Mag-Ox) 400 mg PO DAILY [facility] Last Admin: 07/14/17 08:06 Dose: 400 mg Methylprednisolone Sodium Succinate (Solu-Medrol) 40 mg IV Q8HR [facility] Last Admin: 07/14/17 23:20 Dose: 40 mg Montelukast Sodium (Singulair) 10 mg PO HS [facility] Last Admin: 07/14/17 20:14 Dose: 10 mg Nitroglycerin (Nitrostat) 0.4 mg SUBLINGUAL Q5M PRN PRN Reason: Chest Pain Synthroid (Shiv) 125 (Mcg) 1 each PO DAILY@0630 [facility] Last Admin: 07/14/17 05:41 Dose: 1 each Patients Own Med-- Levalbuterol 1.25mg/3ml 1 each INHALATION RT-QID PRN PRN Reason: Shortness Of Breath Last Admin: 07/14/17 19:44 Dose: 1 each Nystatin (Mycostatin Powder) 1 applic TOPICAL BID PRN PRN Reason: Skin Irritation Pseudoephedrine HCl (Sudafed 12hr) 120 mg PO DAILY PRN PRN Reason: Nasal Congestion Home Medications Medication Instructions Recorded Confirmed Type Cetirizine HCl [Zyrtec] 10 mg PO BID PRN 08/20/14 07/13/17 History Cyclobenzaprine [Flexeril] 10 mg PO TID 08/20/14 07/13/17 History EPINEPHrine (Auto Inject) [Epipen] 0.3 mg IM ONCE PRN 08/20/14 07/13/17 History Bumetanide [BUMEX] 1 mg PO BID 06/08/16 07/13/17 History Nitroglycerin Sl Tabs [Nitrostat] 0.4 mg SUBLINGUAL Q5M PRN #25 tab 06/09/1609/25 Rx Nystatin 100,000 Unit/gm Powd 1 applic TOPICAL BID PRN applic 05/13/17 Rx [Mycostatin Powder] Pseudoephedrine 12Hr [Sudafed 12 120 mg PO DAILY PRN 05/15/17 07/13/17 History Hour] predniSONE 20 mg PO DAILY PRN 05/15/17 07/13/17 History Insulin Aspart Protam & Aspart 55 unit SQ AC-BID 06/29/17 07/13/17 History [NovoLOG MIX 70-30 Flexpen] Levalbuterol Nebulized [Xopenex 1.25 mg INHALATION RT-QID PRN 06/29/17 07/13/17 History Nebulized] Montelukast [Singulair] 10 mg PO HS 06/29/17 07/13/17 History Aspirin EC [Ecotrin] 325 mg PO DAILY 07/13/17 07/13/17 History Ibuprofen [Motrin] 800 mg PO Q6H PRN 07/13/17 07/13/17 History Insulin Aspart [NovoLOG Flexpen] 15 units SQ AC-TID PRN 07/13/17 07/13/17 History Magnesium Oxide [Mag-Ox] 250 mg PO DAILY 07/13/17 07/13/17 History Synthroid (Shiv) 125 mcg PO DAILY 07/13/17 07/13/17 History Allergies Allergy/AdvReac Type Severity Reaction Status Date / Time adhesive Allergy Rash/Hives Verified 07/13/17 06:38 adhesive tape Allergy Rash/Hives Verified 07/13/17 06:38 aspartame Allergy Unknown Verified 07/13/17 06:38 bee pollen Allergy Anaphylaxis Verified 07/13/17 06:38 Beta-Blockers Allergy Rash/Hives Verified 07/13/17 06:38 (Beta-Adrenergic Bloc bupropion [From Zyban] Allergy Hallucinati Verified 07/13/17 06:38 ons bupropion HCl [From Zyban] Allergy Hallucinati Verified 07/13/17 06:38 ons cefaclor [From Ceclor] Allergy Rash/Hives Verified 07/13/17 06:38 cephalexin [From Keflex] Allergy Rash/Hives Verified 07/13/17 06:38 cephalexin monohydrate Allergy Rash/Hives Verified 07/13/17 06:38 [From Keflex] cider vinegar Allergy Unknown Verified 07/13/17 06:38 cinnamon Allergy Unknown Verified 07/13/17 06:38 ciprofloxacin [From Cipro] Allergy Swelling Verified 07/13/17 06:38 ciprofloxacin HCl Allergy Swelling Verified 07/13/17 06:38 [From Cipro] citalopram hydrobromide Allergy Unknown Verified 07/13/17 06:38 [From Celexa] clindamycin Allergy Unknown Verified 07/13/17 06:38 clindamycin HCl Allergy Rash/Hives Verified 07/13/17 06:38 [From Cleocin] clindamycin palmitate HCl Allergy Rash/Hives Verified 07/13/17 06:38 [From Cleocin] clindamycin phosphate Allergy Rash/Hives Verified 07/13/17 06:38 [From Cleocin] codeine Allergy Unknown Verified 07/13/17 06:38 colesevelam HCl Allergy Unknown Verified 07/13/17 06:38 [From WelChol] diphenhydramine Allergy Rash/Hives Verified 07/13/17 06:38 [From Benadryl] diphenhydramine HCl Allergy Itching Verified 07/13/17 06:38 [From Benadryl] erythromycin base Allergy Rash/Hives Verified 07/13/17 06:38 [From E-Mycin] furosemide [From Lasix] Allergy Rash/Hives Verified 07/13/17 06:38 horse dander Allergy Wheezing Verified 07/13/17 06:38 insulin detemir Allergy Itching Verified 07/13/17 06:38 [From Levemir] Iodinated Contrast- Oral and Allergy Swelling Verified 07/13/17 06:38 IV Dye iodine Allergy Swelling Verified 07/13/17 06:38 labetalol HCl [From Trandate] Allergy Rash/Hives Verified 07/13/17 06:38 latex Allergy Anaphylaxis Verified 07/13/17 06:38 levothyroxine sodium Allergy Rash/Hives Verified 07/13/17 06:38 [From Levothroid] metformin HCl Allergy Chest Pain Verified 07/13/17 06:38 [From Glucophage] Milk Containing Products Allergy Swelling Verified 07/13/17 06:38 Mushroom Allergy SWELLING Verified 07/13/17 06:38 OF TONGUE,SCRATCHING FEELING nortriptyline HCl Allergy Rash/Hives Verified 07/13/17 06:38 [From Pamelor] Penicillins Allergy Anaphylaxis Verified 07/13/17 06:38 Pork/Porcine Containing Allergy Swelling Verified 07/13/17 06:38 Products [Pork] shellfish derived Allergy SEVERE Verified 07/13/17 06:38 ITCHING ,SWELLING OF THROAT simvastatin Allergy Swelling Verified 07/13/17 06:38 spironolactone Allergy ITCHING Verified 07/13/17 06:38 [From Aldactone] AND RED RASH strawberry Allergy Rash/Hives Verified 07/13/17 06:38 Sulfa (Sulfonamide Allergy WAS TOLD Verified 07/13/17 06:38 Antibiotics) BY DR NOT TO TAKE tetracycline Allergy Anaphylaxis Verified 07/13/17 06:38 thyroid,pork Allergy Rapid Verified 07/13/17 06:38 [From [place]ett Thyroid] Heart Rate BAND AID Allergy BLISTERS Uncoded 06/29/17 11:23 CODEINE Allergy Abdominal Uncoded 06/29/17 11:23 Pain METALS Allergy "FILLINGS Uncoded 06/29/17 11:23 ROTTED MY TEETH" VINEGAR Allergy Swelling Uncoded 06/29/17 11:23 Physical Exam Vitals: Vital Signs Temp Pulse Pulse Resp BP Pulse Ox 07/14/17 23:00 97.8 F 83 16 148/72 95 07/14/17 19:55 100 07/14/17 19:45 100 98 07/14/17 15:00 98.1 F 100 16 169/71 95 07/14/17 09:41 100 07/14/17 09:23 96 07/14/17 07:00 97.6 F 86 16 145/69 97 Intake and Output 07/14/17 07/14/17 07/15/17 14:59 22:59 06:59 Intake Total 271.833 Balance 271.833 Intake: Intake, IV Titration 71.833 Amount Insulin Regular 100 unit 71.833 In Sodium Chloride 0.9% 100 ml @ Titrate IV .Q0M [facility] Rx#:[id number] Oral 200 Other: Voiding Method Toilet # Voids 3 1 Gen: This is a morbidly obese 56-year-old female. She is found in bed and appears to be in no acute distress. No respiratory distress is noted. HEENT: Head is atraumatic, normocephalic. Pupils equal, round. Sclerae is anicteric. PERRLA pink. Mucous members of the mouth are moist. No thrush noted. NECK: Supple. No JVD. No lymphadenopathy. No thyromegaly. LUNGS: there are symmetrical air entry, expiratory wheezes in the lung villarreal are noted, a few basilar crackles are noted. No distinct dullness or egophony. HEART: irregular with an audible S1 and S2 no S3 soft S4 no distinct murmur click or rub ABDOMEN: Morbidly obese. Soft. Bowel sounds are present. No masses. No tenderness. EXTREMITIES: Trace bilateral pedal edema. No calf tenderness. Dorsalis pedis is weak bilaterally. NEUROLOGICAL: Patient is awake, alert and oriented x3. Cranial nerves 2 through 12 are grossly intact. skin: Patient has evidence of a somewhat generalized rash that she relates started once the Humulin R insulin drip was started, nondistended. Is feeling slightly better. But still very pruritic no blisters are seen Results CBC & Chem 7: 07/14/17 08:18 07/14/17 08:18 Labs: Abnormal Lab Results - Last 24 Hours (Table) 07/14/17 07/14/17 07/14/17 Range/Units 07:05 08:18 08:18 WBC 16.7 H (3.8-10.6) k/uL Neutrophils # 15.3 H (1.3-7.7) k/uL Sodium 130 L (137-145) mmol/L Potassium 5.6 H (3.5-5.1) mmol/L Chloride 94 L (98-107) mmol/L BUN 21 H (7-17) mg/dL Glucose 391 H (74-99) mg/dL POC Glucose (mg/dL) 372 H (75-99) mg/dL 07/14/17 07/14/17 07/14/17 Range/Units 12:28 17:11 18:03 WBC (3.8-10.6) k/uL Neutrophils # (1.3-7.7) k/uL Sodium (137-145) mmol/L Potassium (3.5-5.1) mmol/L Chloride (98-107) mmol/L BUN (7-17) mg/dL Glucose (74-99) mg/dL POC Glucose (mg/dL) 334 H 426 H 384 H (75-99) mg/dL 07/14/17 07/14/17 07/14/17 Range/Units 18:49 19:26 20:11 WBC (3.8-10.6) k/uL Neutrophils # (1.3-7.7) k/uL Sodium (137-145) mmol/L Potassium (3.5-5.1) mmol/L Chloride (98-107) mmol/L BUN (7-17) mg/dL Glucose (74-99) mg/dL POC Glucose (mg/dL) 412 H 344 H 275 H (75-99) mg/dL 07/14/17 07/14/17 Range/Units 20:44 23:57 WBC (3.8-10.6) k/uL Neutrophils # (1.3-7.7) k/uL Sodium (137-145) mmol/L Potassium (3.5-5.1) mmol/L Chloride (98-107) mmol/L BUN (7-17) mg/dL Glucose (74-99) mg/dL POC Glucose (mg/dL) 233 H 172 H (75-99) mg/dL Microbiology - Last 24 Hours (Table) 07/13/17 20:29 Blood Culture - Preliminary Blood No Growth after 24 hours 07/14/17 15:05 Urine Culture - Preliminary Urine,Voided Laboratory Results WBC 16.7 k/uL (3.8-10.6) H 07/14/17 08:18 RBC 4.45 m/uL (3.80-5.40) 07/14/17 08:18 Hgb 12.9 gm/dL (11.4-16.0) 07/14/17 08:18 Hct 39.3 % (34.0-46.0) 07/14/17 08:18 MCV 88.3 fL (80.0-100.0) 07/14/17 08:18 MCH 29.0 pg (25.0-35.0) 07/14/17 08:18 MCHC 32.9 g/dL (31.0-37.0) 07/14/17 08:18 RDW 13.9 % (11.5-15.5) 07/14/17 08:18 Plt Count 306 k/uL (150-450) 07/14/17 08:18 Neutrophils % 92 % 07/14/17 08:18 Lymphocytes % 7 % 07/14/17 08:18 Monocytes % 1 % 07/14/17 08:18 Eosinophils % 0 % 07/14/17 08:18 Basophils % 0 % 07/14/17 08:18 Neutrophils # 15.3 k/uL (1.3-7.7) H 07/14/17 08:18 Lymphocytes # 1.2 k/uL (1.0-4.8) 07/14/17 08:18 Monocytes # 0.2 k/uL (0-1.0) 07/14/17 08:18 Eosinophils # 0.0 k/uL (0-0.7) 07/14/17 08:18 Basophils # 0.0 k/uL (0-0.2) 07/14/17 08:18 PT 10.1 sec (9.0-12.0) 07/13/17 04:06 INR 1.0 (<1.2) 07/13/17 04:06 APTT 23.9 sec (22.0-30.0) 07/13/17 04:06 Sodium 130 mmol/L (137-145) L 07/14/17 08:18 Potassium 5.6 mmol/L (3.5-5.1) H 07/14/17 08:18 Chloride 94 mmol/L (98-107) L 07/14/17 08:18 Carbon Dioxide 27 mmol/L (22-30) 07/14/17 08:18 Anion Gap 9 mmol/L 07/14/17 08:18 BUN 21 mg/dL (7-17) H 07/14/17 08:18 Creatinine 0.56 mg/dL (0.52-1.04) 07/14/17 08:18 Est GFR (MDRD) Af Amer >60 (>60 ml/min/1.73 sqM) 07/14/17 08:18 Est GFR (MDRD) Non-Af >60 (>60 ml/min/1.73 sqM) 07/14/17 08:18 Glucose 391 mg/dL (74-99) H 07/14/17 08:18 POC Glucose (mg/dL) 172 mg/dL (75-99) H 07/14/17 23:57 POC Glu Senior Bioinformatics Specialist ID Sanjuanita Max 07/14/17 23:57 Plasma Lactic Acid Francisco 1.4 mmol/L (0.7-2.0) 07/13/17 04:06 Calcium 9.4 mg/dL (8.4-10.2) 07/14/17 08:18 Magnesium 2.1 mg/dL (1.6-2.3) 07/13/17 04:06 Total Bilirubin 0.4 mg/dL (0.2-1.3) 07/13/17 04:06 AST 28 U/L (14-36) 07/13/17 04:06 ALT 45 U/L (9-52) 07/13/17 04:06 Alkaline Phosphatase 83 U/L (38-126) 07/13/17 04:06 Total Creatine Kinase 205 U/L (30-135) H 07/13/17 04:06 CK-MB (CK-2) 4.0 ng/mL (0.0-2.4) H* 07/13/17 04:06 CK-MB (CK-2) Rel Index 2.0 07/13/17 04:06 Troponin I 0.028 ng/mL (0.000-0.034) 07/13/17 04:06 NT-Pro-B Natriuret Pep 280 pg/mL 07/13/17 04:06 Total Protein 6.3 g/dL (6.3-8.2) 07/13/17 04:06 Albumin 3.1 g/dL (3.5-5.0) L 07/13/17 04:06 Urine Color Yellow 07/13/17 05:22 Urine Appearance Cloudy (Clear) H 07/13/17 05:22 Urine pH 5.5 (5.0-8.0) 07/13/17 05:22 Ur Specific [place] 1.012 (1.001-1.035) 07/13/17 05:22 Urine Protein Negative (Negative) 07/13/17 05:22 Urine Glucose (UA) 2+ (Negative) H 07/13/17 05:22 Urine Ketones Negative (Negative) 07/13/17 05:22 Urine Blood Negative (Negative) 07/13/17 05:22 Urine Nitrite Negative (Negative) 07/13/17 05:22 Urine Bilirubin Negative (Negative) 07/13/17 05:22 Urine Urobilinogen <2.0 mg/dL (<2.0) 07/13/17 05:22 Ur Leukocyte Esterase Negative (Negative) 07/13/17 05:22 Urine WBC 1 /hpf (0-5) 07/13/17 05:22 Ur Squamous Epith Cells <1 /hpf (0-4) 07/13/17 05:22 Urine Mucus Rare /hpf (None) H 07/13/17 05:22 Influenza Type A RNA Not Detected (Not Detectd) 07/13/17 04:36 Influenza Type B (PCR) Not Detected (Not Detectd) 07/13/17 04:36 Microbiology 07/13/17 20:29 Blood Blood Culture - Preliminary No Growth after 24 hours 07/14/17 15:05 Urine,Voided Urine Culture - Preliminary Chest x-ray: image reviewed (continues to have the bilateral interstitial infiltrates possibly slightly improved) Assessment and Plan (1) Interstitial lung disease Narrative/Plan: 56-year-old female presents to Hospital with significant increasing shortness of breath that is worsening after her recent treatment of MSSA pneumonia. She was treated the outpatient setting with placing the PICC line and start of meropenem. Despite a course she continued to have ongoing symptoms of pneumonia. MSSA has been isolated and she's been re-initiated to Merrem therapy. She was also receiving high doses of steroids and developed an extremely elevated blood glucose and insulin drip was started. She never had a drug eruption from this and it is now been stopped. She's feeling somewhat better but still quite pruritic. Hydroxyzine will be given to see if this cannot allow her some rest in improvement of her pruritus. Antibiotic therapy with Merrem will continue and that this is usually highly effective for her for her isolate pathogens and without significant ALLERGY. Patient understands that she needs to become well enough so the lung biopsy can be performed to determine if there are any other courses of medication he can be given to try to improve her lung function. It is also possible that she just has advanced emphysema from her many years of smoking and obesity. Supportive care continues. Pulmonary is following in trying to reduce her steroids to improve her significant side effects. Insulin drip has been discontinued and she'll receive her NovoLog insulin that she does not have the ALLERGIES to. the patient has developed leukocytosis appears to be directly related to her current steroid use. Current Visit: No Status: Chronic Code(s): J84.9 - INTERSTITIAL PULMONARY DISEASE, UNSPECIFIED SNOMED Code(s): 234621573 (2) Morbid obesity with BMI of 40.0-44.9, adult Current Visit: No Status: Chronic Code(s): E66.01 - MORBID (SEVERE) OBESITY DUE TO EXCESS CALORIES; Z68.41 - BODY MASS INDEX (BMI) 40.0-44.9, ADULT SNOMED Code(s): 646156227 (3) Rash Current Visit: Yes Status: Acute Code(s): R21 - RASH AND OTHER NONSPECIFIC SKIN ERUPTION SNOMED Code(s): 270801092 (4) Leukocytosis Current Visit: Yes Status: Acute Code(s): D72.829 - ELEVATED WHITE BLOOD CELL COUNT, UNSPECIFIED SNOMED Code(s): 363307425
[2017-07-15 02:51] LABS: Hemoglobin A1C 8.3 % (4.0-6.0)
[2017-07-15] MEDS: SYNTHROID 125 MCG PO SCH (06:07)
[2017-07-15 07:35] LABS: Glucose,Whole Blood 244 mg/dL (75-99)
[2017-07-15] MEDS: ASPIRIN 325 MG TAB PO SCH (07:39)
[2017-07-15] MEDS: methylPREDNISolone SOD SUCCI 40 MG/ML 1 ML VIAL IV SCH ×3 (07:39→23:56)
[2017-07-15] MEDS: MEROPENEM 1 GM in SODIUM CHLORIDE 0.9% 100 ML IVPB SCH ×3 (07:39→23:56)
[2017-07-15] MEDS: BUMETANIDE 1 MG TAB PO SCH ×2 (07:40→15:53)
[2017-07-15] MEDS: LORATADINE 10 MG TAB PO SCH (07:40)
[2017-07-15] MEDS: MAGNESIUM OXIDE 400 MG TAB PO SCH (07:40)
[2017-07-15] MEDS: CYCLOBENZAPRINE 10 MG TAB PO SCH ×3 (07:40→21:26)
[2017-07-15] MEDS: LEVALBUTEROL 1.25 MG/3 ML INHALATION PRN ×3 (07:52→19:49)
[2017-07-15] MEDS: IBUPROFEN 800 MG TAB PO PRN ×3 (08:04→21:29)
[2017-07-15] MEDS: INSULN ASP PRT/INSULIN ASPART 100 UNIT/ML 10 ML VIAL SQ SCH ×2 (08:09→18:06)
[2017-07-15 08:10] LABS: Basophils % (A) 0 %; Eosinophils % (A) 0 %; HCT 40.6 % (34.0-46.0); Lymphocytes # (A) 1.5 k/uL (1.0-4.8); Lymphocytes % (A) 7 %; MCH 28.6 pg (25.0-35.0); MCHC 31.9 g/dL (31.0-37.0); MCV 89.7 fL (80.0-100.0); Mean Platelet Volume 7.9; Monocytes # (A) 0.4 k/uL (0-1.0); Monocytes % (A) 2 %; Neutrophils # (A) 19.8 k/uL (1.3-7.7); Neutrophils % (A) 91 %; Platelet Count 305 k/uL (150-450); RBC 4.52 m/uL (3.80-5.40); RDW 15.2 % (11.5-15.5); WBC 21.8 k/uL (3.8-10.6)
[2017-07-15] MEDS: INSULIN ASPART 100 UNIT/ML 1 ML 10 ML VIAL SQ SCH ×5 (08:10→21:30)
[2017-07-15 08:21] LABS: Anion Gap 8 mmol/L; Blood Urea Nitrogen 25 mg/dL (7-17); Calcium 9.5 mg/dL (8.4-10.2); Carbon Dioxide 29 mmol/L (22-30); Chloride 97 mmol/L (98-107); Glucose 256 mg/dL (74-99); Potassium 5.2 mmol/L (3.5-5.1); Sodium 134 mmol/L (137-145)
[2017-07-15] MEDS ORDERED: INSULIN ASPART 100 UNIT/ML 1 ML 10 ML VIAL SQ SCH (12:30)
--- NOTE | 2017-07-15 12:53 | P.PN ---
Subjective Progress Note Date: 07/15/17 This is a pleasant 56-year-old female patient who follows with Dr. Mclaughlin as her primary care physician. Her comorbid conditions include diabetes, hypertension, hyperlipidemia and previous history of CVA with some residual right-sided numbness. She is morbidly obese, she is a ex-smoker and she quit smoking approximately 3-4 months back. She is known to have congestion heart failure and she was hospitalized for CHF exacerbation in May 2016 at [facility]. A cardiac stress test was done and did not show any acute reversible ischemia. She is known to have CHF with diastolic dysfunction with a preserved LV. The chest x-ray showed diffuse reticular nodular changes throughout the lung villarreal bilaterally. This raises the suspicion for interstitial lung disease versus CHF. Follow up chest x-ray is showing a similar findings of diffuse reticular another pulmonary infiltrates scattered throughout lung his bilaterally. No history of pulmonary fibrosis or Sarcoidosis. Clinically the patient has exertional dyspnea. However her shortness of breath is multifactorial. She gets back pain and pain in her lower extremities which limited ability to move around and ambulate. She has occasional cough and congestion. No significant sputum production. No hemoptysis. No pleurisy. No aspiration. No skin rashes. She is currently on oxygen at 2 L/m nasal cannula bringing her pulse ox of 98%. A spirometer this was done at her primary care physician's office on March 2017 showed an FEV1 of 56% of predicted and she was essentially restricted with a FEV1 FVC ratio of 83. She has chronic lower extremity edema and she is currently on Bumex.The patient had exposure to molds as the house and take was infested with molds and the patient had the area treated by an outside company. An accurate air-quality analysis has not been done. The patient underwent a bronchoscopy 05/12/2017 that was essentially complicated with some endobronchial bleeding and postop the patient was found to have a streptococcal pneumonia for which she was hospitalized and she was treated. She has also slow recovery from the anesthetics which caused some increased drowsiness and sleepiness and fatigue. In any rate, the patient is back to her baseline. She is on 3 L of oxygen nasal cannula. Chest x-ray still showing diffuse breath and pulmonary infiltrates. All of the microbial cultures of been negative. All of the serologic markers are negative with exception of a elevated Pavan level, and a transbronchial biopsy showed some chronic inflammatory changes yet the inflammatory pattern was not specific for any certain disease or disorder. Video-assisted thoracoscopic lung biopsy is an option which we are contemplating for now. A recent sputum culture on 2016 was positive for Staphylococcus aureus she was treated with IV meropenem for 10 days. She also follows up with Dr. Meza based on her multiple infections. She presented here again early this morning 07/13/2017 with complaints of dizziness and lightheadedness. She states she had been up to the bathroom was sitting on the toilet urinating when she went to stand up she was quite dizzy and weak and had to sit back down. She was subsequently helped to the kitchen chair by her son. At that time she developed a right-sided headache pain behind her right eye tingling and numbness in her first 2 digits of her right hand and right-sided leg numbness. She was brought to the emergency room for the same. An EKG revealed some T-wave abnormality in the lateral leads. There is some prolonged QT 487 ms. Computed tomography scan of the brain revealed no acute intracranial abnormality. Chest x-ray revealed some decreased interstitial hazy opacities throughout the lungs. No leukocytosis. Hemoglobin 12.7. Sodium 128. ProBNP 280, troponin 0.028. Influenza screen is negative. She is seen today in consultation on the regular medical floor. She is awake and alert in no acute distress. She denies any worsening shortness of breath. She continues with a loose nonproductive cough. No fever chills or night sweats. Maintaining good O2 saturations in the 90s on 2 L/m per nasal cannula. She is been afebrile. Hypertensive. She is still having ongoing issues with right-sided pain of her head and maxillary region. On 07/14/2017, the patient is producing yellowish sputum. The patient was seen by hospitalist. The patient was restarted on IV Merrem. ID consultation is still pending. The patient has a better control her blood pressure. No other new complaints otherwise for now. On 07/15/2016 I'm seeing this patient for a follow-up. She is coughing less and her COPD is improving with a combination of bronchodilators and steroids. The sputum was sent for culture and the results are still pending. Is showing gram-positive cocci. Meanwhile the patient is developing some leukocytosis. I think this is a steroid-induced leukocytosis rather than to infection. She is not having any new complaints. No fever or chills. No night sweats. No hemoptysis. No pleurisy. ID evaluated the patient and no changes from their standpoint. Her pulse ox is 92% to be too oxygen nasal cannula. No skin rashes. Objective - Vital Signs Vital signs: Vital Signs Temp 97.4 F L 07/15/17 07:00 Pulse 92 07/15/17 08:02 Resp 18 07/15/17 07:00 BP 137/82 07/15/17 07:00 Pulse Ox 92 L 07/15/17 07:00 Intake & Output 07/14/17 07/15/17 07/15/17 18:59 06:59 18:59 Intake Total 15.333 256.5 Balance 15.333 256.5 Weight 96.5 kg Intake: Intake, IV Titration 15.333 56.5 Amount Insulin Regular 100 unit 15.333 56.5 In Sodium Chloride 0.9% 100 ml @ Titrate IV .Q0M [facility] Rx#:[id number] Oral 200 Other: Voiding Method Toilet Toilet # Voids 3 1 - Exam General Appearance no diaphoresis, no respiratory distress, speech not interrupted by breaths, no dyspnea, no pallor, not cachectic, well nourished, appears well, obesity HEENT no pursed lip breathing, no jugular venous distention, no mucous membrane cyanosis, no perioral cyanosis, mallampati classification: class 1, Mallampati Classification: Class 4 Chest no retractions, no sternocleidomastoid muscle contractions, no supraclavicular retractions, no intercostal retractions, no decreased air movement, no rhonchi, no hyperinflation, (normal) adventitious sounds: rales / crackles: bilaterally: midlung villarreal, barrel chest, prolonged expiratory wheezing, decreased air movement Heart no right ventricular heave, no distant heart sounds, no s3 gallop, (normal ) jugular vein: jugular venous distention: by 0cm, (normal) jugular vein GI bowel sounds: hyperactive (borborygmi), bowel sounds: diminished or absent Extremities no cyanosis, no clubbing, edema (trace edema) Neurologic no decreased mental status, no somnolence, no confusion Assisstive Devices: ambulates with no assitive devices, ambulates with cane, ambulates with walker Gait and Mobility: gait WNL, full weight bearing, unsteady - Labs CBC & Chem 7: 07/15/17 07:45 07/15/17 07:45 Labs: Abnormal Lab Results - Last 24 Hours (Table) 07/13/17 07/14/17 07/14/17 Range/Units 04:06 17:11 18:03 WBC (3.8-10.6) k/uL Neutrophils # (1.3-7.7) k/uL Sodium (137-145) mmol/L Potassium (3.5-5.1) mmol/L Chloride (98-107) mmol/L BUN (7-17) mg/dL Glucose (74-99) mg/dL POC Glucose (mg/dL) 426 H 384 H (75-99) mg/dL Hemoglobin A1c 8.3 H (4.0-6.0) % 07/14/17 07/14/17 07/14/17 Range/Units 18:49 19:26 20:11 WBC (3.8-10.6) k/uL Neutrophils # (1.3-7.7) k/uL Sodium (137-145) mmol/L Potassium (3.5-5.1) mmol/L Chloride (98-107) mmol/L BUN (7-17) mg/dL Glucose (74-99) mg/dL POC Glucose (mg/dL) 412 H 344 H 275 H (75-99) mg/dL Hemoglobin A1c (4.0-6.0) % 07/14/17 07/14/17 07/15/17 Range/Units 20:44 23:57 07:16 WBC (3.8-10.6) k/uL Neutrophils # (1.3-7.7) k/uL Sodium (137-145) mmol/L Potassium (3.5-5.1) mmol/L Chloride (98-107) mmol/L BUN (7-17) mg/dL Glucose (74-99) mg/dL POC Glucose (mg/dL) 233 H 172 H 244 H (75-99) mg/dL Hemoglobin A1c (4.0-6.0) % 07/15/17 07/15/17 Range/Units 07:45 07:45 WBC 21.8 H (3.8-10.6) k/uL Neutrophils # 19.8 H (1.3-7.7) k/uL Sodium 134 L (137-145) mmol/L Potassium 5.2 H (3.5-5.1) mmol/L Chloride 97 L (98-107) mmol/L BUN 25 H (7-17) mg/dL Glucose 256 H (74-99) mg/dL POC Glucose (mg/dL) (75-99) mg/dL Hemoglobin A1c (4.0-6.0) % Microbiology - Last 24 Hours (Table) 07/14/17 14:50 Gram Stain - Preliminary Sputum 07/13/17 20:29 Blood Culture - Preliminary Blood No Growth after 24 hours 07/14/17 15:05 Urine Culture - Preliminary Urine,Voided Assessment and Plan Plan: 1 COPD along with a diffuse infiltrative lung disease with an underlying interstitial renal disease is suspected. Patient completed IV Merrem on outpatient basis for a PICC line. Currently she is having ongoing sputum production and sputum was recultured today. Patient was restarted back on Merrem. 2 MSSA in the sputum/MSSA pneumonia 3 moderate chronic obstructive pulmonary disease Bilateral emphysema secondary to [id number] smoking history 4 chronic hypoxemic respiratory failure, oxygen at 2 L/m nasal cannula 5 morbid obesity 6 congestive heart failure, essentially of a diastolic dysfunction with preserved LV of 50% 7 right-sided cephalgia with tingling and numbness of the digits of the right hand lower extremity weakness more so on the right, computed tomography scan of the brain revealed no intracranial abnormality. Rule out an underlying hypertensive encephalopathy knowing that the patient presented with significantly elevated blood pressure at a time of admission. Plan The current antibiotic coverage. Monitor the white cell count nontender the patient has developed some steroid-induced leukocytosis. Doubt underlying infection. Awaiting the sputum Gram stain and culture. Treat COPD exacerbation with a combination of bronchodilators steroids. We'll continue to follow. Patient's blood pressures under better control.
[2017-07-15 12:54] LABS: Glucose,Whole Blood 255 mg/dL (75-99)
[2017-07-15] MEDS: INSULIN ASPART 100 UNIT/ML 1 ML 10 ML VIAL SQ PRN ×2 (13:05→21:30)
[2017-07-15 17:00] LABS: Glucose,Whole Blood 279 mg/dL (75-99)
--- NOTE | 2017-07-15 20:10 | P.PN ---
Subjective Progress Note Date: 07/14/17 Progress note being dictated for Dr. Nichols Interval history: Is a 56-year-old female admitted with shortness of breath, possible interstitial fibrosis exacerbation, acute purulent tracheobronchitis, COPD exacerbation and multiple other medical issues. Maintained on nebulized bronchodilators, steroids and antibiotics, with breathing improving. Denies chest pain, palpitations or increasing shortness of breath.Afebrile. Objective - Vital Signs Vital signs: Vital Signs Temp 98.1 F 07/14/17 15:00 Pulse 100 07/14/17 15:00 Resp 16 07/14/17 15:00 BP 169/71 07/14/17 15:00 Pulse Ox 95 07/14/17 15:00 Intake & Output 07/13/17 07/14/17 07/14/17 18:59 06:59 18:59 Weight 120.656 kg Other: Voiding Method Toilet # Voids 3 1 3 - Exam PHYSICAL EXAM: VITAL SIGNS: As above GENERAL: Up in bed, no acute distress, cachectic appearing HEENT: Conjunctivae normal. eyes normal. NECK: No JVD. No thyroid enlargement. No LNs CARDIOVASCULAR: S1, S2 muffled. No murmur RESPIRATION: Breath sounds diminished in the bases. No rhonchi or crackles. No bronchial breathing. ABDOMEN: Soft, nontender . No guarding. no masses palpable. Bowel sounds heard. LEGS: No edema. no swelling PSYCHIATRY: Alert and oriented -3, mood and affect normal. NERVOUS SYSTEM: Cranial N 2-12 grossly normal. Moves all 4 limbs. Diffuse weakness No focal deficits. No sensory deficit. Skin: no ulcer no rash Joints: No active swelling. No inflammation. Lymphatic system. No LN neck axilla or groin. - Labs CBC & Chem 7: 07/15/17 07:45 07/15/17 07:45 Labs: Abnormal Lab Results - Last 24 Hours (Table) 07/13/17 07/14/17 07/14/17 Range/Units 20:27 07:05 08:18 WBC 16.7 H (3.8-10.6) k/uL Neutrophils # 15.3 H (1.3-7.7) k/uL Sodium (137-145) mmol/L Potassium (3.5-5.1) mmol/L Chloride (98-107) mmol/L BUN (7-17) mg/dL Glucose (74-99) mg/dL POC Glucose (mg/dL) 387 H 372 H (75-99) mg/dL 07/14/17 07/14/17 07/14/17 Range/Units 08:18 12:28 17:11 WBC (3.8-10.6) k/uL Neutrophils # (1.3-7.7) k/uL Sodium 130 L (137-145) mmol/L Potassium 5.6 H (3.5-5.1) mmol/L Chloride 94 L (98-107) mmol/L BUN 21 H (7-17) mg/dL Glucose 391 H (74-99) mg/dL POC Glucose (mg/dL) 334 H 426 H (75-99) mg/dL 07/14/17 Range/Units 18:03 WBC (3.8-10.6) k/uL Neutrophils # (1.3-7.7) k/uL Sodium (137-145) mmol/L Potassium (3.5-5.1) mmol/L Chloride (98-107) mmol/L BUN (7-17) mg/dL Glucose (74-99) mg/dL POC Glucose (mg/dL) 384 H (75-99) mg/dL Assessment and Plan Assessment: 1. Acute COPD exacerbation with acute purulent tracheobronchitis, possible acute interstitial Process exacerbation 2. Acute COPD exacerbation 3. Recent pneumococcal pneumonia 4. Left upper lobe pulmonary nodule 5. Anorexia secondary to severe COPD Plan: Continue on current medication regime ,monitoring and symptomatic treatment. Continue on nebulized medical dilators, steroids and antibiotics. Discharge planning in progress for tomorrow. The impression and plan of care has been dictated as directed. : I performed a history and examination of this patient, discussed the same with the dictator. I agree with the dictator's note ,documented as a scribe. Any additional findings or plans will be noted.
--- NOTE | 2017-07-15 20:17 | P.PN ---
Subjective Progress Note Date: 07/15/17 Progress note being dictated for Dr. Nichols Interval history: Is a 56-year-old female admitted with shortness of breath, possible interstitial fibrosis exacerbation, acute purulent tracheobronchitis, COPD exacerbation and multiple other medical issues. Maintained on nebulized bronchodilators, steroids and antibiotics, with breathing improving. Denies chest pain, palpitations or increasing shortness of breath.Afebrile. 07/15/17 afebrile, WBC increased to 21.8, on steroids. Preliminary sputum culture reporting gram-positive cocci. Maintained on IV antibiotics as per ID. Continues on nebulized bronchodilators and steroids. Denies chest pain, palpitations. Maintaining O2 sats of 94% on 2 L nasal cannula. Objective - Vital Signs Vital signs: Vital Signs Temp 97.5 F L 07/15/17 15:00 Pulse 92 07/15/17 20:01 Resp 16 07/15/17 15:00 BP 162/80 07/15/17 15:00 Pulse Ox 96 07/15/17 19:49 Intake & Output 07/15/17 07/15/17 07/16/17 06:59 18:59 06:59 Intake Total 256.5 Balance 256.5 Weight 96.5 kg Intake: Intake, IV Titration 56.5 Amount Insulin Regular 100 unit 56.5 In Sodium Chloride 0.9% 100 ml @ Titrate IV .Q0M [facility] Rx#:[id number] Oral 200 Other: Voiding Method Toilet # Voids 1 3 - Exam PHYSICAL EXAM: VITAL SIGNS: As above GENERAL: Up in bed, no acute distress, cachectic appearing HEENT: Conjunctivae normal. eyes normal. NECK: No JVD. No thyroid enlargement. No LNs CARDIOVASCULAR: S1, S2 muffled. No murmur RESPIRATION: Barrell. chest Breath sounds diminished in the bases. Scattered crackles. Prolonged Expiratory wheezing ABDOMEN: Soft, nontender . No guarding. no masses palpable. Bowel sounds heard. LEGS: No edema. no swelling PSYCHIATRY: Alert and oriented -3, mood and affect normal. NERVOUS SYSTEM: Cranial N 2-12 grossly normal. Moves all 4 limbs. Diffuse weakness No focal deficits. No sensory deficit. Skin: no ulcer no rash Joints: No active swelling. No inflammation. Lymphatic system. No LN neck axilla or groin. - Labs CBC & Chem 7: 07/15/17 07:45 07/15/17 07:45 Labs: Abnormal Lab Results - Last 24 Hours (Table) 07/13/17 07/14/17 07/14/17 Range/Units 04:06 20:11 20:44 WBC (3.8-10.6) k/uL Neutrophils # (1.3-7.7) k/uL Sodium (137-145) mmol/L Potassium (3.5-5.1) mmol/L Chloride (98-107) mmol/L BUN (7-17) mg/dL Glucose (74-99) mg/dL POC Glucose (mg/dL) 275 H 233 H (75-99) mg/dL Hemoglobin A1c 8.3 H (4.0-6.0) % 07/14/17 07/15/17 07/15/17 Range/Units 23:57 07:16 07:45 WBC 21.8 H (3.8-10.6) k/uL Neutrophils # 19.8 H (1.3-7.7) k/uL Sodium (137-145) mmol/L Potassium (3.5-5.1) mmol/L Chloride (98-107) mmol/L BUN (7-17) mg/dL Glucose (74-99) mg/dL POC Glucose (mg/dL) 172 H 244 H (75-99) mg/dL Hemoglobin A1c (4.0-6.0) % 07/15/17 07/15/17 07/15/17 Range/Units 07:45 12:21 16:55 WBC (3.8-10.6) k/uL Neutrophils # (1.3-7.7) k/uL Sodium 134 L (137-145) mmol/L Potassium 5.2 H (3.5-5.1) mmol/L Chloride 97 L (98-107) mmol/L BUN 25 H (7-17) mg/dL Glucose 256 H (74-99) mg/dL POC Glucose (mg/dL) 255 H 279 H (75-99) mg/dL Hemoglobin A1c (4.0-6.0) % Microbiology - Last 24 Hours (Table) 07/14/17 15:05 Urine Culture - Final Urine,Voided 07/14/17 14:50 Gram Stain - Preliminary Sputum 07/13/17 20:29 Blood Culture - Preliminary Blood No Growth after 24 hours Assessment and Plan Assessment: 1. Acute COPD exacerbation with acute purulent tracheobronchitis, possible acute interstitial Process exacerbation 2. Acute COPD exacerbation 3. Recent pneumococcal pneumonia 4. Left upper lobe pulmonary nodule 5. Anorexia secondary to severe COPD Plan: Continue on current medication regime ,monitoring and symptomatic treatment. Final sputum cultures pending,maintain nebulizedbronchodilators , steroids and antibiotics. Discharge planning in progress for tomorrow. The impression and plan of care has been dictated as directed. : I performed a history and examination of this patient, discussed the same with the dictator. I agree with the dictator's note ,documented as a scribe. Any additional findings or plans will be noted.
[2017-07-15 20:38] LABS: Glucose,Whole Blood 374 mg/dL (75-99)
[2017-07-15] MEDS: MONTELUKAST 10 MG TAB PO SCH (21:26)
[2017-07-16 00:08] LABS: Glucose,Whole Blood 252 mg/dL (75-99)
[2017-07-16 03:13] LABS: Glucose,Whole Blood 210 mg/dL (75-99)
[2017-07-16] MEDS: SYNTHROID 125 MCG PO SCH (06:27)
[2017-07-16 07:08] LABS: Glucose,Whole Blood 235 mg/dL (75-99)
[2017-07-16] MEDS: LORATADINE 10 MG TAB PO SCH (08:01)
[2017-07-16] MEDS: methylPREDNISolone SOD SUCCI 40 MG/ML 1 ML VIAL IV SCH (08:01)
[2017-07-16] MEDS: MEROPENEM 1 GM in SODIUM CHLORIDE 0.9% 100 ML IVPB SCH ×2 (08:01→15:29)
[2017-07-16] MEDS: BUMETANIDE 1 MG TAB PO SCH ×2 (08:01→21:06)
[2017-07-16] MEDS: MAGNESIUM OXIDE 400 MG TAB PO SCH (08:01)
[2017-07-16] MEDS: INSULIN ASPART 100 UNIT/ML 1 ML 10 ML VIAL SQ SCH ×4 (08:01→21:13)
[2017-07-16] MEDS: ASPIRIN 325 MG TAB PO SCH (08:01)
[2017-07-16] MEDS: CYCLOBENZAPRINE 10 MG TAB PO SCH ×3 (08:01→21:06)
[2017-07-16] MEDS: INSULN ASP PRT/INSULIN ASPART 100 UNIT/ML 10 ML VIAL SQ SCH ×2 (08:02→17:57)
[2017-07-16] MEDS: IBUPROFEN 800 MG TAB PO PRN ×3 (08:07→21:13)
[2017-07-16 08:27] LABS: Basophils % (A) 0 %; Eosinophils % (A) 0 %; HCT 41.1 % (34.0-46.0); HGB 13.2 gm/dL (11.4-16.0); Lymphocytes # (A) 1.4 k/uL (1.0-4.8); Lymphocytes % (A) 9 %; MCH 28.3 pg (25.0-35.0); MCHC 32.1 g/dL (31.0-37.0); MCV 88.3 fL (80.0-100.0); Mean Platelet Volume 8.4; Monocytes # (A) 0.4 k/uL (0-1.0); Monocytes % (A) 3 %; Neutrophils # (A) 13.7 k/uL (1.3-7.7); Neutrophils % (A) 88 %; Platelet Count 273 k/uL (150-450); RBC 4.65 m/uL (3.80-5.40); RDW 14.9 % (11.5-15.5); WBC 15.5 k/uL (3.8-10.6)
[2017-07-16 08:38] LABS: Anion Gap 6 mmol/L; Blood Urea Nitrogen 29 mg/dL (7-17); Calcium 9.2 mg/dL (8.4-10.2); Carbon Dioxide 33 mmol/L (22-30); Chloride 95 mmol/L (98-107); Glucose 256 mg/dL (74-99); Potassium 5.2 mmol/L (3.5-5.1); Sodium 134 mmol/L (137-145)
[2017-07-16 11:42] LABS: Glucose,Whole Blood 217 mg/dL (75-99)
--- NOTE | 2017-07-16 13:31 | P.PN ---
Subjective Progress Note Date: 07/16/17 This is a pleasant 56-year-old female patient who follows with Dr. Mclaughlin as her primary care physician. Her comorbid conditions include diabetes, hypertension, hyperlipidemia and previous history of CVA with some residual right-sided numbness. She is morbidly obese, she is a ex-smoker and she quit smoking approximately 3-4 months back. She is known to have congestion heart failure and she was hospitalized for CHF exacerbation in May 2016 at [facility]. A cardiac stress test was done and did not show any acute reversible ischemia. She is known to have CHF with diastolic dysfunction with a preserved LV. The chest x-ray showed diffuse reticular nodular changes throughout the lung villarreal bilaterally. This raises the suspicion for interstitial lung disease versus CHF. Follow up chest x-ray is showing a similar findings of diffuse reticular another pulmonary infiltrates scattered throughout lung his bilaterally. No history of pulmonary fibrosis or Sarcoidosis. Clinically the patient has exertional dyspnea. However her shortness of breath is multifactorial. She gets back pain and pain in her lower extremities which limited ability to move around and ambulate. She has occasional cough and congestion. No significant sputum production. No hemoptysis. No pleurisy. No aspiration. No skin rashes. She is currently on oxygen at 2 L/m nasal cannula bringing her pulse ox of 98%. A spirometer this was done at her primary care physician's office on March 2017 showed an FEV1 of 56% of predicted and she was essentially restricted with a FEV1 FVC ratio of 83. She has chronic lower extremity edema and she is currently on Bumex.The patient had exposure to molds as the house and take was infested with molds and the patient had the area treated by an outside company. An accurate air-quality analysis has not been done. The patient underwent a bronchoscopy 05/12/2017 that was essentially complicated with some endobronchial bleeding and postop the patient was found to have a streptococcal pneumonia for which she was hospitalized and she was treated. She has also slow recovery from the anesthetics which caused some increased drowsiness and sleepiness and fatigue. In any rate, the patient is back to her baseline. She is on 3 L of oxygen nasal cannula. Chest x-ray still showing diffuse breath and pulmonary infiltrates. All of the microbial cultures of been negative. All of the serologic markers are negative with exception of a elevated Pavan level, and a transbronchial biopsy showed some chronic inflammatory changes yet the inflammatory pattern was not specific for any certain disease or disorder. Video-assisted thoracoscopic lung biopsy is an option which we are contemplating for now. A recent sputum culture on 2016 was positive for Staphylococcus aureus she was treated with IV meropenem for 10 days. She also follows up with Dr. Meza based on her multiple infections. She presented here again early this morning 07/13/2017 with complaints of dizziness and lightheadedness. She states she had been up to the bathroom was sitting on the toilet urinating when she went to stand up she was quite dizzy and weak and had to sit back down. She was subsequently helped to the kitchen chair by her son. At that time she developed a right-sided headache pain behind her right eye tingling and numbness in her first 2 digits of her right hand and right-sided leg numbness. She was brought to the emergency room for the same. An EKG revealed some T-wave abnormality in the lateral leads. There is some prolonged QT 487 ms. Computed tomography scan of the brain revealed no acute intracranial abnormality. Chest x-ray revealed some decreased interstitial hazy opacities throughout the lungs. No leukocytosis. Hemoglobin 12.7. Sodium 128. ProBNP 280, troponin 0.028. Influenza screen is negative. She is seen today in consultation on the regular medical floor. She is awake and alert in no acute distress. She denies any worsening shortness of breath. She continues with a loose nonproductive cough. No fever chills or night sweats. Maintaining good O2 saturations in the 90s on 2 L/m per nasal cannula. She is been afebrile. Hypertensive. She is still having ongoing issues with right-sided pain of her head and maxillary region. On 07/14/2017, the patient is producing yellowish sputum. The patient was seen by hospitalist. The patient was restarted on IV Merrem. ID consultation is still pending. The patient has a better control her blood pressure. No other new complaints otherwise for now. On 07/15/2016 I'm seeing this patient for a follow-up. She is coughing less and her COPD is improving with a combination of bronchodilators and steroids. The sputum was sent for culture and the results are still pending. Is showing gram-positive cocci. Meanwhile the patient is developing some leukocytosis. I think this is a steroid-induced leukocytosis rather than to infection. She is not having any new complaints. No fever or chills. No night sweats. No hemoptysis. No pleurisy. ID evaluated the patient and no changes from their standpoint. Her pulse ox is 92% to be too oxygen nasal cannula. No skin rashes. The patient is seen again today 07/16/2017 in follow-up on the regular medical floor. She is awake and alert in no acute distress. She is breathing better today as compared to yesterday. She remains afebrile. Maintaining good O2 saturations in the 90s on 2 L/m per nasal cannula. Blood, sputum and urine cultures were all negative. White count improved to 15.5. Hemoglobin 13.2. Creatinine 0.70. Objective - Vital Signs Vital signs: Vital Signs Temp 97.9 F 07/16/17 07:00 Pulse 72 07/16/17 07:00 Resp 16 07/16/17 07:00 BP 141/69 07/16/17 07:00 Pulse Ox 94 L 07/16/17 08:28 Intake & Output 07/15/17 07/16/17 07/16/17 18:59 06:59 18:59 Other: Voiding Method Toilet # Voids 3 3 - Exam General Appearance no diaphoresis, no respiratory distress, speech not interrupted by breaths, no dyspnea, no pallor, not cachectic, well nourished, appears well, obesity HEENT no pursed lip breathing, no jugular venous distention, no mucous membrane cyanosis, no perioral cyanosis, mallampati classification: class 1, Mallampati Classification: Class 4 Chest no retractions, no sternocleidomastoid muscle contractions, no supraclavicular retractions, no intercostal retractions, no decreased air movement, no rhonchi, no hyperinflation, (normal) adventitious sounds: rales / crackles: bilaterally: midlung villarreal, barrel chest, prolonged expiratory wheezing, decreased air movement Heart no right ventricular heave, no distant heart sounds, no s3 gallop, (normal ) jugular vein: jugular venous distention: by 0cm, (normal) jugular vein GI bowel sounds: hyperactive (borborygmi), bowel sounds: diminished or absent Extremities no cyanosis, no clubbing, edema (trace edema) Neurologic no decreased mental status, no somnolence, no confusion Assisstive Devices: ambulates with no assitive devices, ambulates with cane, ambulates with walker Gait and Mobility: gait WNL, full weight bearing, unsteady - Labs CBC & Chem 7: 07/16/17 07:58 07/16/17 07:58 Labs: Abnormal Lab Results - Last 24 Hours (Table) 07/15/17 07/15/17 07/16/17 Range/Units 16:55 20:37 00:05 WBC (3.8-10.6) k/uL Neutrophils # (1.3-7.7) k/uL Sodium (137-145) mmol/L Potassium (3.5-5.1) mmol/L Chloride (98-107) mmol/L Carbon Dioxide (22-30) mmol/L BUN (7-17) mg/dL Glucose (74-99) mg/dL POC Glucose (mg/dL) 279 H 374 H 252 H (75-99) mg/dL 07/16/17 07/16/17 07/16/17 Range/Units 03:10 07:03 07:58 WBC 15.5 H (3.8-10.6) k/uL Neutrophils # 13.7 H (1.3-7.7) k/uL Sodium (137-145) mmol/L Potassium (3.5-5.1) mmol/L Chloride (98-107) mmol/L Carbon Dioxide (22-30) mmol/L BUN (7-17) mg/dL Glucose (74-99) mg/dL POC Glucose (mg/dL) 210 H 235 H (75-99) mg/dL 07/16/17 07/16/17 Range/Units 07:58 11:39 WBC (3.8-10.6) k/uL Neutrophils # (1.3-7.7) k/uL Sodium 134 L (137-145) mmol/L Potassium 5.2 H (3.5-5.1) mmol/L Chloride 95 L (98-107) mmol/L Carbon Dioxide 33 H (22-30) mmol/L BUN 29 H (7-17) mg/dL Glucose 256 H (74-99) mg/dL POC Glucose (mg/dL) 217 H (75-99) mg/dL Microbiology - Last 24 Hours (Table) 07/14/17 14:50 Gram Stain - Final Sputum Sputum Culture - Final 07/13/17 20:29 Blood Culture - Preliminary Blood No Growth after 48 hours 07/14/17 15:05 Urine Culture - Final Urine,Voided Assessment and Plan Assessment: Impression: 1 COPD along with a diffuse infiltrative lung disease with an underlying interstitial lung disease is suspected. Patient completed IV Merrem on outpatient basis for a PICC line. Currently she is having ongoing sputum production and sputum was re cultured and reveals no growth. She is currently on meropenem. 2 history of MSSA in the sputum/MSSA pneumonia on previous bronchial wash in June 2017. 3 moderate chronic obstructive pulmonary disease Bilateral emphysema secondary to [id number] smoking history 4 chronic hypoxemic respiratory failure, oxygen at 2 L/m nasal cannula 5 morbid obesity 6 congestive heart failure, essentially of a diastolic dysfunction with preserved LV of 50% 7 right-sided cephalgia with tingling and numbness of the digits of the right hand lower extremity weakness more so on the right, computed tomography scan of the brain revealed no intracranial abnormality. Rule out an underlying hypertensive encephalopathy knowing that the patient presented with significantly elevated blood pressure at a time of admission. Plan The patient was seen and evaluated by Dr. Guzman. She is nearly quite back to her baseline as from as her pulmonary status is concerned. We will switch her IV Solu-Medrol to prednisone burst and taper. Antibiotics per ID. Upon discharge she'll follow-up with Dr. Guzman in our office for further evaluation and treatment regarding her interstitial lung disease. I, the cosigning physician, have performed a history and physical examination on the patient. Lung sounds have coarse crackles in the posterior bases. Diminished.. Maintaining good O2 saturations in the 90s on 2 L/m per nasal cannula. I have discussed the assessment and plan of care with my nurse practitioner, Zoraida Tse. I attest to the above note as dictated by her.
[2017-07-16 17:05] LABS: Glucose,Whole Blood 316 mg/dL (75-99)
--- NOTE | 2017-07-16 20:24 | XR ---
EXAMINATION TYPE: XR chest 1V portable DATE OF EXAM: 07/16/2017 CLINICAL HISTORY: Difficulty breathing progress study. History of COPD. TECHNIQUE: Single AP portable upright view of the chest is obtained. COMPARISON: Chest x-ray from 3 days earlier FINDINGS: There is stable left-sided PICC line. There is chronic parenchymal change without new susp icious focal airspace opacity, pleural effusion, or pneumothorax seen bilaterally. There is felt inte rval improvement in reticulonodular interstitial opacities bilaterally. Cardiac silhouette size is st able and mildly enlarged with atherosclerotic aorta. Osseous structures are intact. IMPRESSION: Improving reticulonodular interstitial opacities. No new infiltrate is seen.
[2017-07-16] MEDS: LEVALBUTEROL 1.25 MG/3 ML INHALATION PRN (20:39)
[2017-07-16 20:46] LABS: Glucose,Whole Blood 356 mg/dL (75-99)
[2017-07-16] MEDS: MONTELUKAST 10 MG TAB PO SCH (21:06)
[2017-07-16] MEDS: FLUTICASONE 50MCG/SPRAY NASAL 16GM EA NOSTRIL SCH (21:08)
[2017-07-16] MEDS: INSULIN ASPART 100 UNIT/ML 1 ML 10 ML VIAL SQ PRN (21:14)
[2017-07-17] MEDS: MEROPENEM 1 GM in SODIUM CHLORIDE 0.9% 100 ML IVPB SCH ×3 (00:03→16:02)
[2017-07-17] MEDS: SYNTHROID 125 MCG PO SCH (06:47)
[2017-07-17 07:21] LABS: Glucose,Whole Blood 98 mg/dL (75-99)
[2017-07-17] MEDS: INSULIN ASPART 100 UNIT/ML 1 ML 10 ML VIAL SQ SCH ×4 (07:47→21:59)
--- NOTE | 2017-07-17 07:48 | PN ---
PROGRESS NOTE DATE OF SERVICE: 07/16/2017 This 56-year-old woman who was admitted with COPD acute exacerbation also had a possible interstitial process also. The patient being closely monitored at this time. Dr. Guzman is following the patient closely and biopsy is a consideration, but the patient had severe comorbidities at this time. The patient also had MSSA from the sputum previously as well as pneumococcal pneumonia, but currently the most recent sputum cultures are negative at this time. PAST MEDICAL HISTORY: Reviewed. REVIEW OF SYSTEMS: CARDIOVASCULAR: As mentioned earlier. RESPIRATORY: As mentioned earlier. GI: As mentioned earlier. : No dysuria. NERVOUS SYSTEM: No numbness or weakness. PHYSICAL EXAM: Patient is alert, oriented x3. Pulse 85, blood pressure 140/62, respirations 16, temperature 97.9, pulse ox 97% on 2 L. HEENT: Conjunctivae normal. Oral mucosa moist. NECK: No jugular venous distention. No carotid bruit. CARDIOVASCULAR: S1, S2. RESPIRATORY: Breath sounds diminished in the bases. Bilateral scattered rhonchi and crackles. ABDOMEN: Soft, obese, nontender. LEGS: No focal abscess. LABS: WBC 15.5, sodium 132, potassium 5.2. ASSESSMENT: 1. Chronic obstructive pulmonary disease acute exacerbation with acute purulent tracheobronchitis with possibly interstitial disease. 2. Recent pneumococcal pneumonia. 3. History of MSSA from the sputum. 4. History of left upper lobe pulmonary nodule. 5. Severe anorexia. 6. Obesity with body mass index of 30.5. RECOMMENDATIONS AND DISCUSSION: This 56-year-old woman who presented with multiple complex medical issues, will monitor the patient closely, continue the current management and symptomatic treatment. Continue the bronchodilators and steroids. Closely follow with Dr. Guzman. Bronchoscopy or lung biopsy is consideration, but however await clinical improvement. Further recommendations follow. Prognosis guarded. Further recommendations to follow. MMODL / IJN: [id number] /
[2017-07-17] MEDS: INSULN ASP PRT/INSULIN ASPART 100 UNIT/ML 10 ML VIAL SQ SCH ×3 (07:50→17:47)
[2017-07-17] MEDS: ASPIRIN 325 MG TAB PO SCH (07:50)
[2017-07-17] MEDS: IBUPROFEN 800 MG TAB PO PRN ×2 (07:50→17:47)
[2017-07-17] MEDS: predniSONE 20 MG TAB PO SCH (07:51)
[2017-07-17] MEDS: BUMETANIDE 1 MG TAB PO SCH ×2 (07:51→20:17)
[2017-07-17] MEDS: MAGNESIUM OXIDE 400 MG TAB PO SCH (07:51)
[2017-07-17] MEDS: LORATADINE 10 MG TAB PO SCH (07:51)
[2017-07-17] MEDS: CYCLOBENZAPRINE 10 MG TAB PO SCH ×3 (07:51→20:17)
[2017-07-17 11:56] LABS: Glucose,Whole Blood 146 mg/dL (75-99)
[2017-07-17] MEDS: LEVALBUTEROL 1.25 MG/3 ML INHALATION PRN (16:05)
[2017-07-17 16:58] LABS: Glucose,Whole Blood 201 mg/dL (75-99)
[2017-07-17] MEDS: FLUTICASONE 50MCG/SPRAY NASAL 16GM EA NOSTRIL SCH (20:16)
[2017-07-17] MEDS: MONTELUKAST 10 MG TAB PO SCH (20:18)
[2017-07-17 21:25] LABS: Glucose,Whole Blood 144 mg/dL (75-99)
[2017-07-17 23:28] VITALS: RESP 16
[2017-07-18] MEDS: MEROPENEM 1 GM in SODIUM CHLORIDE 0.9% 100 ML IVPB SCH ×4 (00:22→23:33)
[2017-07-18] MEDS: IBUPROFEN 800 MG TAB PO PRN ×4 (01:10→21:32)
[2017-07-18] MEDS: SYNTHROID 125 MCG PO SCH (06:26)
[2017-07-18 07:30] LABS: Glucose,Whole Blood 70 mg/dL (75-99)
[2017-07-18] MEDS: INSULIN ASPART 100 UNIT/ML 1 ML 10 ML VIAL SQ SCH ×4 (07:31→21:28)
--- NOTE | 2017-07-18 07:58 | PN ---
PROGRESS NOTE DATE OF SERVICE: 07/17/2017 INTERVAL HISTORY: This is a 56-year-old woman who was admitted with COPD exacerbation, also had significant interstitial lung disease, also etiology is uncertain. The patient is not ready for a lung biopsy because of the poor functional respiratory status according to Dr. Guzman. No chest pain. No palpitations. No fever. PHYSICAL EXAM: Alert and oriented x3. Pulse 77, blood pressure 117/57, respiration 18, temperature 97.6, pulse ox 94% on 2 L. HEENT: Conjunctivae normal. Oral mucosa moist. Neck is no jugular venous distention. No carotid bruit. No lymph node enlargement. CARDIOVASCULAR SYSTEM: S1, S2, muffled. RESPIRATORY: Breath sounds diminished at the bases. A a few scattered rhonchi, no crackles. ABDOMEN: Soft, nontender, obese. LEGS: No edema. No swelling. NERVOUS SYSTEM: No focal deficits. LABS: WBC 15.5, sodium 134, potassium 5.2. ASSESSMENT: 1. Chronic obstructive pulmonary disease acute exacerbation with acute purulent tracheobronchitis with possible severe interstitial lung disease, etiology uncertain. 2. History of recent pneumococcal pneumonia. 3. History of recent methicillin-susceptible Staphylococcus aureus from the sputum. 4. History of recent meropenem through a PICC line. 5. History of left upper lobe pulmonary nodule. 6. Severe multiple allergies. 7. Obesity with modest body mass index of 30.5. RECOMMENDATION: Recommend to continue with current management and symptomatic treatment: Otherwise, follow closely with Dr. Guzman. Continue with antibiotics. Continue with steroids. Continue with the rest of the medications. Guarded prognosis. Further recommendations to follow. MMODL / IJN: [id number] /
[2017-07-18] MEDS: LORATADINE 10 MG TAB PO SCH (08:05)
[2017-07-18] MEDS: predniSONE 20 MG TAB PO SCH (08:05)
[2017-07-18] MEDS: BUMETANIDE 1 MG TAB PO SCH ×2 (08:05→21:29)
[2017-07-18] MEDS: MAGNESIUM OXIDE 400 MG TAB PO SCH (08:05)
[2017-07-18] MEDS: CYCLOBENZAPRINE 10 MG TAB PO SCH ×3 (08:06→21:29)
[2017-07-18] MEDS: ASPIRIN 325 MG TAB PO SCH (08:06)
[2017-07-18] MEDS: INSULN ASP PRT/INSULIN ASPART 100 UNIT/ML 10 ML VIAL SQ SCH ×2 (08:09→17:56)
[2017-07-18 09:03] LABS: Basophils # (A) 0.1 k/uL (0-0.2); Basophils % (A) 1 %; Eosinophils # (A) 0.3 k/uL (0-0.7); Eosinophils % (A) 2 %; HCT 48.8 % (34.0-46.0); HGB 15.2 gm/dL (11.4-16.0); Lymphocytes # (A) 4.5 k/uL (1.0-4.8); Lymphocytes % (A) 31 %; MCH 28.4 pg (25.0-35.0); MCHC 31.1 g/dL (31.0-37.0); MCV 91.2 fL (80.0-100.0); Mean Platelet Volume 7.7; Monocytes # (A) 0.8 k/uL (0-1.0); Monocytes % (A) 6 %; Neutrophils # (A) 8.4 k/uL (1.3-7.7); Neutrophils % (A) 59 %; Platelet Count 307 k/uL (150-450); RBC 5.35 m/uL (3.80-5.40); RDW 15.1 % (11.5-15.5); WBC 14.2 k/uL (3.8-10.6)
[2017-07-18 09:10] LABS: Anion Gap 9 mmol/L; Blood Urea Nitrogen 38 mg/dL (7-17); Carbon Dioxide 35 mmol/L (22-30); Chloride 95 mmol/L (98-107); Glucose 71 mg/dL (74-99); Potassium 4.4 mmol/L (3.5-5.1); Sodium 139 mmol/L (137-145)
[2017-07-18 12:05] LABS: Glucose,Whole Blood 128 mg/dL (75-99)
--- NOTE | 2017-07-18 12:16 | P.PN ---
Subjective Progress Note Date: 07/18/17 Principal diagnosis: COPD, diffuse infiltrative lung disease with an underlying suspected ILD, recent history of MSSA pneumonia in June 2017 This is a pleasant 56-year-old female patient who follows with Dr. Mclaughlin as her primary care physician. Her comorbid conditions include diabetes, hypertension, hyperlipidemia and previous history of CVA with some residual right-sided numbness. She is morbidly obese, she is a ex-smoker and she quit smoking approximately 3-4 months back. She is known to have congestion heart failure and she was hospitalized for CHF exacerbation in May 2016 at [facility]. A cardiac stress test was done and did not show any acute reversible ischemia. She is known to have CHF with diastolic dysfunction with a preserved LV. The chest x-ray showed diffuse reticular nodular changes throughout the lung villarreal bilaterally. This raises the suspicion for interstitial lung disease versus CHF. Follow up chest x-ray is showing a similar findings of diffuse reticular another pulmonary infiltrates scattered throughout lung his bilaterally. No history of pulmonary fibrosis or Sarcoidosis. Clinically the patient has exertional dyspnea. However her shortness of breath is multifactorial. She gets back pain and pain in her lower extremities which limited ability to move around and ambulate. She has occasional cough and congestion. No significant sputum production. No hemoptysis. No pleurisy. No aspiration. No skin rashes. She is currently on oxygen at 2 L/m nasal cannula bringing her pulse ox of 98%. A spirometer this was done at her primary care physician's office on March 2017 showed an FEV1 of 56% of predicted and she was essentially restricted with a FEV1 FVC ratio of 83. She has chronic lower extremity edema and she is currently on Bumex.The patient had exposure to molds as the house and take was infested with molds and the patient had the area treated by an outside company. An accurate air-quality analysis has not been done. The patient underwent a bronchoscopy 05/12/2017 that was essentially complicated with some endobronchial bleeding and postop the patient was found to have a streptococcal pneumonia for which she was hospitalized and she was treated. She has also slow recovery from the anesthetics which caused some increased drowsiness and sleepiness and fatigue. In any rate, the patient is back to her baseline. She is on 3 L of oxygen nasal cannula. Chest x-ray still showing diffuse breath and pulmonary infiltrates. All of the microbial cultures of been negative. All of the serologic markers are negative with exception of a elevated Pavan level, and a transbronchial biopsy showed some chronic inflammatory changes yet the inflammatory pattern was not specific for any certain disease or disorder. Video-assisted thoracoscopic lung biopsy is an option which we are contemplating for now. A recent sputum culture on 2016 was positive for Staphylococcus aureus she was treated with IV meropenem for 10 days. She also follows up with Dr. Meaz based on her multiple infections. She presented here again early this morning 07/13/2017 with complaints of dizziness and lightheadedness. She states she had been up to the bathroom was sitting on the toilet urinating when she went to stand up she was quite dizzy and weak and had to sit back down. She was subsequently helped to the kitchen chair by her son. At that time she developed a right-sided headache pain behind her right eye tingling and numbness in her first 2 digits of her right hand and right-sided leg numbness. She was brought to the emergency room for the same. An EKG revealed some T-wave abnormality in the lateral leads. There is some prolonged QT 487 ms. Computed tomography scan of the brain revealed no acute intracranial abnormality. Chest x-ray revealed some decreased interstitial hazy opacities throughout the lungs. No leukocytosis. Hemoglobin 12.7. Sodium 128. ProBNP 280, troponin 0.028. Influenza screen is negative. She is seen today in consultation on the regular medical floor. She is awake and alert in no acute distress. She denies any worsening shortness of breath. She continues with a loose nonproductive cough. No fever chills or night sweats. Maintaining good O2 saturations in the 90s on 2 L/m per nasal cannula. She is been afebrile. Hypertensive. She is still having ongoing issues with right-sided pain of her head and maxillary region. On 07/14/2017, the patient is producing yellowish sputum. The patient was seen by hospitalist. The patient was restarted on IV Merrem. ID consultation is still pending. The patient has a better control her blood pressure. No other new complaints otherwise for now. On 07/15/2016 I'm seeing this patient for a follow-up. She is coughing less and her COPD is improving with a combination of bronchodilators and steroids. The sputum was sent for culture and the results are still pending. Is showing gram-positive cocci. Meanwhile the patient is developing some leukocytosis. I think this is a steroid-induced leukocytosis rather than to infection. She is not having any new complaints. No fever or chills. No night sweats. No hemoptysis. No pleurisy. ID evaluated the patient and no changes from their standpoint. Her pulse ox is 92% to be too oxygen nasal cannula. No skin rashes. The patient is seen again today 07/16/2017 in follow-up on the regular medical floor. She is awake and alert in no acute distress. She is breathing better today as compared to yesterday. She remains afebrile. Maintaining good O2 saturations in the 90s on 2 L/m per nasal cannula. Blood, sputum and urine cultures were all negative. White count improved to 15.5. Hemoglobin 13.2. Creatinine 0.70. On 07/18/2017 patient seen again in follow-up on medical surgical floor. Doing well, no specific complaints. States her breathing has improved, although she still coughs a lot. Lung sounds are clear diminished overall. Microbiology has been reviewed and remains negative so far. Afebrile, hemodynamically stable , remains on 2 L per nasal cannula with O2 sat at 96-97%. Respirations are even and nonlabored. Has been ambulating within the room tolerating activity well. Chest x-ray from today was reviewed and shows improving reticular low nodular interstitial opacities, but no new infiltrates were seen. Patient continues on meropenem per ID service recommendation. Has a left upper extremity PICC line in place. We will await ID service recommendation as far as the lengthy treatments. But clinically patient is stable, and could even potentially be discharged today pending clearance from other consultants. Objective - Vital Signs Vital signs: Vital Signs Temp 97.0 F L 07/18/17 07:00 Pulse 73 07/18/17 07:00 Resp 16 07/18/17 07:00 BP 132/68 07/18/17 07:00 Pulse Ox 96 07/18/17 07:00 Intake & Output 07/17/17 07/18/17 07/18/17 18:59 06:59 18:59 Weight 89.5 kg Other: Voiding Method Toilet # Voids 2 3 # Bowel Movements 0 - Exam General Appearance no diaphoresis, no respiratory distress, speech not interrupted by breaths, no dyspnea, no pallor, not cachectic, well nourished, appears well, obesity HEENT no pursed lip breathing, no jugular venous distention, no mucous membrane cyanosis, no perioral cyanosis, mallampati classification: class 1, Mallampati Classification: Class 4 Chest no retractions, no sternocleidomastoid muscle contractions, no supraclavicular retractions, no intercostal retractions, no decreased air movement, no rhonchi, no hyperinflation, (normal) adventitious sounds: prolonged expiratory phase, decreased breath sounds bilaterally Heart no right ventricular heave, no distant heart sounds, no s3 gallop, (normal ) jugular vein: jugular venous distention: by 0cm, (normal) jugular vein GI bowel sounds: hyperactive (borborygmi), bowel sounds: diminished or absent Extremities no cyanosis, no clubbing, edema (trace edema) Neurologic no decreased mental status, no somnolence, no confusion Assisstive Devices: ambulates with no assitive devices, ambulates with cane, ambulates with walker Gait and Mobility: gait WNL, full weight bearing - Labs CBC & Chem 7: 07/18/17 08:20 07/18/17 08:20 Labs: Abnormal Lab Results - Last 24 Hours (Table) 07/17/17 07/17/17 07/18/17 Range/Units 16:56 21:23 07:27 WBC (3.8-10.6) k/uL Hct (34.0-46.0) % Neutrophils # (1.3-7.7) k/uL Chloride (98-107) mmol/L Carbon Dioxide (22-30) mmol/L BUN (7-17) mg/dL Glucose (74-99) mg/dL POC Glucose (mg/dL) 201 H 144 H 70 L (75-99) mg/dL 07/18/17 07/18/17 07/18/17 Range/Units 08:20 08:20 12:04 WBC 14.2 H (3.8-10.6) k/uL Hct 48.8 H (34.0-46.0) % Neutrophils # 8.4 H (1.3-7.7) k/uL Chloride 95 L (98-107) mmol/L Carbon Dioxide 35 H (22-30) mmol/L BUN 38 H (7-17) mg/dL Glucose 71 L (74-99) mg/dL POC Glucose (mg/dL) 128 H (75-99) mg/dL Microbiology - Last 24 Hours (Table) 07/13/17 20:29 Blood Culture - Preliminary Blood No Growth after 96 hours Assessment and Plan Plan: Assessment: 1 COPD along with a diffuse infiltrative lung disease with an underlying interstitial lung disease is suspected. Patient completed IV Merrem on outpatient basis for a PICC line. Currently she is having ongoing sputum production and sputum was re cultured and reveals no growth. She is currently on meropenem. Chest x-ray from today shows improving reticulonodular interstitial opacities, but no new infiltrates were seen. 2 history of MSSA in the sputum/MSSA pneumonia on previous bronchial wash in June 2017. 3 moderate chronic obstructive pulmonary disease Bilateral emphysema secondary to [id number] smoking history 4 chronic hypoxemic respiratory failure, oxygen at 2 L/m nasal cannula 5 morbid obesity 6 congestive heart failure, essentially of a diastolic dysfunction with preserved LV of 50% 7 right-sided cephalgia with tingling and numbness of the digits of the right hand lower extremity weakness more so on the right, computed tomography scan of the brain revealed no intracranial abnormality. Rule out an underlying hypertensive encephalopathy knowing that the patient presented with significantly elevated blood pressure at a time of admission. Plan Patient continues to improve, back to her baseline. No significant events, or acute complaints at this time. Follow-up chest x-ray from today shows improving reticular nodular interstitial opacities, no new infiltrates were seen. Afebrile, hemodynamically stable. We will await the recommendation of the ID service regarding the length of treatment with meropenem. This admission microbiology has been negative, blood cultures, sputum culture and urine culture showed no growth. From our standpoint she could be considered for discharge home today pending clearance from other consultants and recommendations about the antibiotic treatments from Dr. Meza. Follow-up in the office with Dr. Guzman. Continue prednisone taper. I performed a history & physical examination of the patient and discussed their management with my nurse practitioner, Chari Alonzo. I reviewed the nurse practitioner's note and agree with the documented findings and plan of care. Lung sounds are diminished. The findings and the impression was discussed with the patient. I attest to the documentation by the nurse practitioner. Time with Patient: Less than 30
[2017-07-18 17:13] LABS: Glucose,Whole Blood 351 mg/dL (75-99)
--- NOTE | 2017-07-18 17:35 | P.PN ---
Subjective Progress Note Date: 07/18/17 Progress note being dictated for Dr. Nichols Interval history: Is a 56-year-old female admitted with shortness of breath, possible interstitial fibrosis exacerbation, acute purulent tracheobronchitis, COPD exacerbation and multiple other medical issues. Maintained on nebulized bronchodilators, steroids and antibiotics, with breathing improving. Denies chest pain, palpitations or increasing shortness of breath.Afebrile. 07/15/17 afebrile, WBC increased to 21.8, on steroids. Preliminary sputum culture reporting gram-positive cocci. Maintained on IV antibiotics as per ID. Continues on nebulized bronchodilators and steroids. Denies chest pain, palpitations. Maintaining O2 sats of 94% on 2 L nasal cannula. 07/18/2017 no overnight events. Continues on Merrem. Significant clinical improvement. Maintaining O2 sats of high 90s on 2 L nasal cannula. Ambulating , tolerating exertion well. Objective - Vital Signs Vital signs: Vital Signs Temp 97.4 F L 07/18/17 15:00 Pulse 83 07/18/17 15:00 Resp 16 07/18/17 15:00 BP 136/72 07/18/17 15:00 Pulse Ox 97 07/18/17 15:00 Intake & Output 07/17/17 07/18/17 07/18/17 18:59 06:59 18:59 Weight 89.5 kg Other: Voiding Method Toilet # Voids 2 3 2 # Bowel Movements 0 - Exam PHYSICAL EXAM: VITAL SIGNS: As above GENERAL: Up in bed, no acute distress, cachectic appearing HEENT: Conjunctivae normal. eyes normal. NECK: No JVD. No thyroid enlargement. No LNs CARDIOVASCULAR: S1, S2 muffled. No murmur RESPIRATION: Barrell. chest Breath sounds diminished in the bases. Prolonged Expiratory wheezing ABDOMEN: Soft, nontender . No guarding. no masses palpable. Bowel sounds heard. LEGS: No edema. no swelling PSYCHIATRY: Alert and oriented -3, mood and affect normal. NERVOUS SYSTEM: Cranial N 2-12 grossly normal. Moves all 4 limbs. Diffuse weakness No focal deficits. No sensory deficit. Skin: no ulcer no rash Joints: No active swelling. No inflammation. Lymphatic system. No LN neck axilla or groin. Microbiology 07/13/17 20:29 Blood Blood Culture - Preliminary No Growth after 96 hours 07/14/17 14:50 Sputum Gram Stain - Final 07/14/17 14:50 Sputum Sputum Culture - Final 07/14/17 15:05 Urine,Voided Urine Culture - Final - Labs CBC & Chem 7: 07/18/17 08:20 07/18/17 08:20 Labs: Abnormal Lab Results - Last 24 Hours (Table) 07/17/17 07/17/17 07/18/17 Range/Units 16:56 21:23 07:27 WBC (3.8-10.6) k/uL Hct (34.0-46.0) % Neutrophils # (1.3-7.7) k/uL Chloride (98-107) mmol/L Carbon Dioxide (22-30) mmol/L BUN (7-17) mg/dL Glucose (74-99) mg/dL POC Glucose (mg/dL) 201 H 144 H 70 L (75-99) mg/dL 07/18/17 07/18/17 07/18/17 Range/Units 08:20 08:20 12:04 WBC 14.2 H (3.8-10.6) k/uL Hct 48.8 H (34.0-46.0) % Neutrophils # 8.4 H (1.3-7.7) k/uL Chloride 95 L (98-107) mmol/L Carbon Dioxide 35 H (22-30) mmol/L BUN 38 H (7-17) mg/dL Glucose 71 L (74-99) mg/dL POC Glucose (mg/dL) 128 H (75-99) mg/dL Microbiology - Last 24 Hours (Table) 07/13/17 20:29 Blood Culture - Preliminary Blood No Growth after 96 hours Assessment and Plan Assessment: 1. Acute COPD exacerbation with acute purulent tracheobronchitis, possible acute interstitial Process exacerbation 2. Acute COPD exacerbation 3. Recent pneumococcal pneumonia 4. Left upper lobe pulmonary nodule 5. Anorexia secondary to severe COPD Plan: Continue on current medication regime ,monitoring and symptomatic treatment. maintain nebulizedbronchodilators , steroids and antibiotics. Discharge planning in progress for tomorrow, pending delivery of IV antibx. As per ID( via PICC LiNE) The impression and plan of care has been dictated as directed. : I performed a history and examination of this patient, discussed the same with the dictator. I agree with the dictator's note ,documented as a scribe. Any additional findings or plans will be noted.
[2017-07-18] MEDS: AMMONIUM LACTATE 12% LOTION 225 GM BTL TOPICAL SCH ×2 (17:55→21:29)
[2017-07-18] MEDS: LEVALBUTEROL 1.25 MG/3 ML INHALATION PRN (19:52)
[2017-07-18 21:19] LABS: Glucose,Whole Blood 231 mg/dL (75-99)
[2017-07-18] MEDS: MONTELUKAST 10 MG TAB PO SCH (21:29)
[2017-07-18] MEDS: FLUTICASONE 50MCG/SPRAY NASAL 16GM EA NOSTRIL SCH (21:29)
--- NOTE | 2017-07-18 22:39 | P.PN ---
Subjective Progress Note Date: 07/18/17 Principal diagnosis: pneumonia 56-year-old female who follows with Dr. Neelam Chan in who was recently hospitalized last month which point in time she had significant difficulties after her bronchoscopy. The patient has evidence of extensive lung disease that appears to be interstitial in nature. Etiology isn't workup as to the possibility of smoking-induced disease versus another disease state. Workup is in process and has been not diagnostic so far. The patient had some bleeding after her bronchoscopy and eventually improved. She ever develops enterococcus pneumoniae pneumonia and responded well to a course of meropenem. She was treated for 5 days and had good resolution of her pneumonia. However several weeks later she again felt very poorly and developed significant shortness of breath with cough and sputum production. Sputum culture had evidence of MSSA. 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 She was treated for several days. At end of therapy she was feeling slightly better. But now is again had recurrence of her significant symptoms in that she was very short of breath having cough and sputum production. With ongoing MSSA pneumonia she was admitted, Merrem was restarted in infectious diseases consultation was requested. Patient is an placed on steroid therapy and with that her blood sugars became considerably elevated. Insulin drip was started and she did develop a skin rash. She does relate that she has an ALLERGY to Humulin but not to Humalog. She is still quite itchy and miserable. She's not been sleeping well. She continues to have great anxiety about her lung disease. The overall goal will be for an open lung biopsy be performed to determine if any other specific interventions can be performed or if this is simply just advanced emphysema from her many years of smoking. As noted she wears home O2 and is generally steroid dependent at this time. Feeling much better today. Rashes completely resolved. Is resting better and her anxiety has resolved. Objective - Vital Signs Vital signs: Vital Signs Temp 97.4 F L 07/18/17 15:00 Pulse 89 07/18/17 20:05 Resp 16 07/18/17 15:00 BP 136/72 07/18/17 15:00 Pulse Ox 97 07/18/17 15:00 Intake & Output 07/18/17 07/18/17 07/19/17 06:59 18:59 06:59 Weight 89.5 kg Other: Voiding Method Toilet # Voids 3 2 # Bowel Movements 0 - Exam Gen: This is a morbidly obese 56-year-old female. She is found in bed and appears to be in no acute distress. No respiratory distress is noted. HEENT: Head is atraumatic, normocephalic. Pupils equal, round. Sclerae is anicteric. PERRLA pink. Mucous members of the mouth are moist. No thrush noted. NECK: Supple. No JVD. No lymphadenopathy. No thyromegaly. LUNGS: there are symmetrical air entry, expiratory wheezes in the lung villarreal are noted, a few basilar crackles are noted. No distinct dullness or egophony. HEART: irregular with an audible S1 and S2 no S3 soft S4 no distinct murmur click or rub ABDOMEN: Morbidly obese. Soft. Bowel sounds are present. No masses. No tenderness. EXTREMITIES: Trace bilateral pedal edema. No calf tenderness. Dorsalis pedis is weak bilaterally. NEUROLOGICAL: Patient is awake, alert and oriented x3. Cranial nerves 2 through 12 are grossly intact. skin: The generalized rash is not completely resolved. No residual rash or blisters are seen. - Labs CBC & Chem 7: 07/18/17 08:20 07/18/17 08:20 Labs: Abnormal Lab Results - Last 24 Hours (Table) 07/18/17 07/18/17 07/18/17 Range/Units 07:27 08:20 08:20 WBC 14.2 H (3.8-10.6) k/uL Hct 48.8 H (34.0-46.0) % Neutrophils # 8.4 H (1.3-7.7) k/uL Chloride 95 L (98-107) mmol/L Carbon Dioxide 35 H (22-30) mmol/L BUN 38 H (7-17) mg/dL Glucose 71 L (74-99) mg/dL POC Glucose (mg/dL) 70 L (75-99) mg/dL 07/18/17 07/18/17 07/18/17 Range/Units 12:04 17:06 21:01 WBC (3.8-10.6) k/uL Hct (34.0-46.0) % Neutrophils # (1.3-7.7) k/uL Chloride (98-107) mmol/L Carbon Dioxide (22-30) mmol/L BUN (7-17) mg/dL Glucose (74-99) mg/dL POC Glucose (mg/dL) 128 H 351 H 231 H (75-99) mg/dL Microbiology - Last 24 Hours (Table) 07/13/17 20:29 Blood Culture - Preliminary Blood No Growth after 96 hours Laboratory Results WBC 14.2 k/uL (3.8-10.6) H 07/18/17 08:20 RBC 5.35 m/uL (3.80-5.40) 07/18/17 08:20 Hgb 15.2 gm/dL (11.4-16.0) 07/18/17 08:20 Hct 48.8 % (34.0-46.0) H 07/18/17 08:20 MCV 91.2 fL (80.0-100.0) 07/18/17 08:20 MCH 28.4 pg (25.0-35.0) 07/18/17 08:20 MCHC 31.1 g/dL (31.0-37.0) 07/18/17 08:20 RDW 15.1 % (11.5-15.5) 07/18/17 08:20 Plt Count 307 k/uL (150-450) 07/18/17 08:20 Neutrophils % 59 % 07/18/17 08:20 Lymphocytes % 31 % 07/18/17 08:20 Monocytes % 6 % 07/18/17 08:20 Eosinophils % 2 % 07/18/17 08:20 Basophils % 1 % 07/18/17 08:20 Neutrophils # 8.4 k/uL (1.3-7.7) H 07/18/17 08:20 Lymphocytes # 4.5 k/uL (1.0-4.8) 07/18/17 08:20 Monocytes # 0.8 k/uL (0-1.0) 07/18/17 08:20 Eosinophils # 0.3 k/uL (0-0.7) 07/18/17 08:20 Basophils # 0.1 k/uL (0-0.2) 07/18/17 08:20 PT 10.1 sec (9.0-12.0) 07/13/17 04:06 INR 1.0 (<1.2) 07/13/17 04:06 APTT 23.9 sec (22.0-30.0) 07/13/17 04:06 Sodium 139 mmol/L (137-145) 07/18/17 08:20 Potassium 4.4 mmol/L (3.5-5.1) 07/18/17 08:20 Chloride 95 mmol/L (98-107) L 07/18/17 08:20 Carbon Dioxide 35 mmol/L (22-30) H 07/18/17 08:20 Anion Gap 9 mmol/L 07/18/17 08:20 BUN 38 mg/dL (7-17) H 07/18/17 08:20 Creatinine 0.80 mg/dL (0.52-1.04) 07/18/17 08:20 Est GFR (MDRD) Af Amer >60 (>60 ml/min/1.73 sqM) 07/18/17 08:20 Est GFR (MDRD) Non-Af >60 (>60 ml/min/1.73 sqM) 07/18/17 08:20 Glucose 71 mg/dL (74-99) L 07/18/17 08:20 POC Glucose (mg/dL) 231 mg/dL (75-99) H 07/18/17 21:01 POC Glu Presser First DESTINY Sal, Karlie 07/18/17 21:[address] Glu mg/dL 192 07/13/17 04:06 Hemoglobin A1c 8.3 % (4.0-6.0) H 07/13/17 04:06 Plasma Lactic Acid Francisco 1.4 mmol/L (0.7-2.0) 07/13/17 04:06 Calcium 9.0 mg/dL (8.4-10.2) 07/18/17 08:20 Magnesium 2.1 mg/dL (1.6-2.3) 07/13/17 04:06 Total Bilirubin 0.4 mg/dL (0.2-1.3) 07/13/17 04:06 AST 28 U/L (14-36) 07/13/17 04:06 ALT 45 U/L (9-52) 07/13/17 04:06 Alkaline Phosphatase 83 U/L (38-126) 07/13/17 04:06 Total Creatine Kinase 205 U/L (30-135) H 07/13/17 04:06 CK-MB (CK-2) 4.0 ng/mL (0.0-2.4) H* 07/13/17 04:06 CK-MB (CK-2) Rel Index 2.0 07/13/17 04:06 Troponin I 0.028 ng/mL (0.000-0.034) 07/13/17 04:06 NT-Pro-B Natriuret Pep 280 pg/mL 07/13/17 04:06 Total Protein 6.3 g/dL (6.3-8.2) 07/13/17 04:06 Albumin 3.1 g/dL (3.5-5.0) L 07/13/17 04:06 Urine Color Yellow 07/13/17 05:22 Urine Appearance Cloudy (Clear) H 07/13/17 05:22 Urine pH 5.5 (5.0-8.0) 07/13/17 05:22 Ur Specific [place] 1.012 (1.001-1.035) 07/13/17 05:22 Urine Protein Negative (Negative) 07/13/17 05:22 Urine Glucose (UA) 2+ (Negative) H 07/13/17 05:22 Urine Ketones Negative (Negative) 07/13/17 05:22 Urine Blood Negative (Negative) 07/13/17 05:22 Urine Nitrite Negative (Negative) 07/13/17 05:22 Urine Bilirubin Negative (Negative) 07/13/17 05:22 Urine Urobilinogen <2.0 mg/dL (<2.0) 07/13/17 05:22 Ur Leukocyte Esterase Negative (Negative) 07/13/17 05:22 Urine WBC 1 /hpf (0-5) 07/13/17 05:22 Ur Squamous Epith Cells <1 /hpf (0-4) 07/13/17 05:22 Urine Mucus Rare /hpf (None) H 07/13/17 05:22 Influenza Type A RNA Not Detected (Not Detectd) 07/13/17 04:36 Influenza Type B (PCR) Not Detected (Not Detectd) 07/13/17 04:36 Microbiology 07/13/17 20:29 Blood Blood Culture - Preliminary No Growth after 96 hours 07/14/17 14:50 Sputum Gram Stain - Final 07/14/17 14:50 Sputum Sputum Culture - Final 07/14/17 15:05 Urine,Voided Urine Culture - Final Assessment and Plan (1) Interstitial lung disease Narrative/Plan: 56-year-old female presents to Hospital with significant increasing shortness of breath that is worsening after her recent treatment of MSSA pneumonia. She was treated the outpatient setting with placing the PICC line and start of meropenem. Despite a course she continued to have ongoing symptoms of pneumonia. MSSA has been isolated and she's been re-initiated to Merrem therapy. She was also receiving high doses of steroids and developed an extremely elevated blood glucose and insulin drip was started. She never had a drug eruption from this and it is now been stopped. She's feeling somewhat better but still quite pruritic. Hydroxyzine will be given to see if this cannot allow her some rest in improvement of her pruritus. Antibiotic therapy with Merrem will continue and that this is usually highly effective for her for her isolate pathogens and without significant ALLERGY. Patient understands that she needs to become well enough so the lung biopsy can be performed to determine if there are any other courses of medication he can be given to try to improve her lung function. It is also possible that she just has advanced emphysema from her many years of smoking and obesity. Supportive care continues. Pulmonary continues to reduce her steroids and she' s feeling considerably better. The extensive rash is completely resolved. the patient has developed leukocytosis appears to be directly related to her current steroid use. We'll arrange for 7 days of meropenem and her discharge. Current Visit: No Status: Chronic Code(s): J84.9 - INTERSTITIAL PULMONARY DISEASE, UNSPECIFIED SNOMED Code(s): 593715088 (2) Morbid obesity with BMI of 40.0-44.9, adult Current Visit: No Status: Chronic Code(s): E66.01 - MORBID (SEVERE) OBESITY DUE TO EXCESS CALORIES; Z68.41 - BODY MASS INDEX (BMI) 40.0-44.9, ADULT SNOMED Code(s): 346302324 (3) Rash Current Visit: Yes Status: Acute Code(s): R21 - RASH AND OTHER NONSPECIFIC SKIN ERUPTION SNOMED Code(s): 423405468 (4) Leukocytosis Current Visit: Yes Status: Acute Code(s): D72.829 - ELEVATED WHITE BLOOD CELL COUNT, UNSPECIFIED SNOMED Code(s): 184742850
[2017-07-19] MEDS: SYNTHROID 125 MCG PO SCH (05:59)
[2017-07-19 07:21] LABS: Glucose,Whole Blood 93 mg/dL (75-99)
[2017-07-19] MEDS: INSULIN ASPART 100 UNIT/ML 1 ML 10 ML VIAL SQ SCH (07:21)
[2017-07-19 07:49] VITALS: BP 135/77; TEMP 97.9
[2017-07-19] MEDS: INSULN ASP PRT/INSULIN ASPART 100 UNIT/ML 10 ML VIAL SQ SCH (08:14)
[2017-07-19] MEDS: LORATADINE 10 MG TAB PO SCH (08:15)
[2017-07-19] MEDS: CYCLOBENZAPRINE 10 MG TAB PO SCH (08:15)
[2017-07-19] MEDS: IBUPROFEN 800 MG TAB PO PRN (08:15)
[2017-07-19] MEDS: AMMONIUM LACTATE 12% LOTION 225 GM BTL TOPICAL SCH (08:15)
[2017-07-19] MEDS: BUMETANIDE 1 MG TAB PO SCH (08:15)
[2017-07-19] MEDS: ASPIRIN 325 MG TAB PO SCH (08:15)
[2017-07-19] MEDS: predniSONE 20 MG TAB PO SCH (08:15)
[2017-07-19] MEDS: MAGNESIUM OXIDE 400 MG TAB PO SCH (08:15)
[2017-07-19] MEDS: MEROPENEM 1 GM in SODIUM CHLORIDE 0.9% 100 ML IVPB SCH (08:15)
[2017-07-19] MEDS: LEVALBUTEROL 1.25 MG/3 ML INHALATION PRN (08:38)
[2017-07-19 09:07] LABS: Basophils # (A) 0.1 k/uL (0-0.2); Basophils % (A) 1 %; Eosinophils # (A) 0.4 k/uL (0-0.7); Eosinophils % (A) 3 %; HCT 42.1 % (34.0-46.0); HGB 13.9 gm/dL (11.4-16.0); Lymphocytes # (A) 3.9 k/uL (1.0-4.8); Lymphocytes % (A) 28 %; MCH 29.1 pg (25.0-35.0); MCHC 33.1 g/dL (31.0-37.0); MCV 88.1 fL (80.0-100.0); Mean Platelet Volume 8.1; Monocytes # (A) 0.8 k/uL (0-1.0); Monocytes % (A) 5 %; Neutrophils # (A) 8.5 k/uL (1.3-7.7); Neutrophils % (A) 62 %; Platelet Count 264 k/uL (150-450); RBC 4.78 m/uL (3.80-5.40); RDW 14.4 % (11.5-15.5); WBC 13.7 k/uL (3.8-10.6)
[2017-07-19 09:15] VITALS: PULSE 88
[2017-07-19 09:25] LABS: Anion Gap 7 mmol/L; Blood Urea Nitrogen 34 mg/dL (7-17); Calcium 8.7 mg/dL (8.4-10.2); Carbon Dioxide 35 mmol/L (22-30); Chloride 95 mmol/L (98-107); Glucose 152 mg/dL (74-99); Potassium 4.3 mmol/L (3.5-5.1); Sodium 137 mmol/L (137-145)
--- NOTE | 2017-07-19 11:41 | P.PN ---
Subjective Progress Note Date: 07/19/17 Principal diagnosis: COPD, diffuse infiltrative lung disease with an underlying suspected ILD, recent history of MSSA pneumonia in June 2017 This is a pleasant 56-year-old female patient who follows with Dr. Mclaughlin as her primary care physician. Her comorbid conditions include diabetes, hypertension, hyperlipidemia and previous history of CVA with some residual right-sided numbness. She is morbidly obese, she is a ex-smoker and she quit smoking approximately 3-4 months back. She is known to have congestion heart failure and she was hospitalized for CHF exacerbation in May 2016 at [facility]. A cardiac stress test was done and did not show any acute reversible ischemia. She is known to have CHF with diastolic dysfunction with a preserved LV. The chest x-ray showed diffuse reticular nodular changes throughout the lung villarreal bilaterally. This raises the suspicion for interstitial lung disease versus CHF. Follow up chest x-ray is showing a similar findings of diffuse reticular another pulmonary infiltrates scattered throughout lung his bilaterally. No history of pulmonary fibrosis or Sarcoidosis. Clinically the patient has exertional dyspnea. However her shortness of breath is multifactorial. She gets back pain and pain in her lower extremities which limited ability to move around and ambulate. She has occasional cough and congestion. No significant sputum production. No hemoptysis. No pleurisy. No aspiration. No skin rashes. She is currently on oxygen at 2 L/m nasal cannula bringing her pulse ox of 98%. A spirometer this was done at her primary care physician's office on March 2017 showed an FEV1 of 56% of predicted and she was essentially restricted with a FEV1 FVC ratio of 83. She has chronic lower extremity edema and she is currently on Bumex.The patient had exposure to molds as the house and take was infested with molds and the patient had the area treated by an outside company. An accurate air-quality analysis has not been done. The patient underwent a bronchoscopy 05/12/2017 that was essentially complicated with some endobronchial bleeding and postop the patient was found to have a streptococcal pneumonia for which she was hospitalized and she was treated. She has also slow recovery from the anesthetics which caused some increased drowsiness and sleepiness and fatigue. In any rate, the patient is back to her baseline. She is on 3 L of oxygen nasal cannula. Chest x-ray still showing diffuse breath and pulmonary infiltrates. All of the microbial cultures of been negative. All of the serologic markers are negative with exception of a elevated [place] level, and a transbronchial biopsy showed some chronic inflammatory changes yet the inflammatory pattern was not specific for any certain disease or disorder. Video-assisted thoracoscopic lung biopsy is an option which we are contemplating for now. A recent sputum culture on 2016 was positive for Staphylococcus aureus she was treated with IV meropenem for 10 days. She also follows up with Dr. Meza based on her multiple infections. She presented here again early this morning 07/13/2017 with complaints of dizziness and lightheadedness. She states she had been up to the bathroom was sitting on the toilet urinating when she went to stand up she was quite dizzy and weak and had to sit back down. She was subsequently helped to the kitchen chair by her son. At that time she developed a right-sided headache pain behind her right eye tingling and numbness in her first 2 digits of her right hand and right-sided leg numbness. She was brought to the emergency room for the same. An EKG revealed some T-wave abnormality in the lateral leads. There is some prolonged QT 487 ms. Computed tomography scan of the brain revealed no acute intracranial abnormality. Chest x-ray revealed some decreased interstitial hazy opacities throughout the lungs. No leukocytosis. Hemoglobin 12.7. Sodium 128. ProBNP 280, troponin 0.028. Influenza screen is negative. She is seen today in consultation on the regular medical floor. She is awake and alert in no acute distress. She denies any worsening shortness of breath. She continues with a loose nonproductive cough. No fever chills or night sweats. Maintaining good O2 saturations in the 90s on 2 L/m per nasal cannula. She is been afebrile. Hypertensive. She is still having ongoing issues with right-sided pain of her head and maxillary region. On 07/14/2017, the patient is producing yellowish sputum. The patient was seen by hospitalist. The patient was restarted on IV Merrem. ID consultation is still pending. The patient has a better control her blood pressure. No other new complaints otherwise for now. On 07/15/2016 I'm seeing this patient for a follow-up. She is coughing less and her COPD is improving with a combination of bronchodilators and steroids. The sputum was sent for culture and the results are still pending. Is showing gram-positive cocci. Meanwhile the patient is developing some leukocytosis. I think this is a steroid-induced leukocytosis rather than to infection. She is not having any new complaints. No fever or chills. No night sweats. No hemoptysis. No pleurisy. ID evaluated the patient and no changes from their standpoint. Her pulse ox is 92% to be too oxygen nasal cannula. No skin rashes. The patient is seen again today 07/16/2017 in follow-up on the regular medical floor. She is awake and alert in no acute distress. She is breathing better today as compared to yesterday. She remains afebrile. Maintaining good O2 saturations in the 90s on 2 L/m per nasal cannula. Blood, sputum and urine cultures were all negative. White count improved to 15.5. Hemoglobin 13.2. Creatinine 0.70. On 07/18/2017 patient seen again in follow-up on medical surgical floor. Doing well, no specific complaints. States her breathing has improved, although she still coughs a lot. Lung sounds are clear diminished overall. Microbiology has been reviewed and remains negative so far. Afebrile, hemodynamically stable , remains on 2 L per nasal cannula with O2 sat at 96-97%. Respirations are even and nonlabored. Has been ambulating within the room tolerating activity well. Chest x-ray from today was reviewed and shows improving reticular low nodular interstitial opacities, but no new infiltrates were seen. Patient continues on meropenem per ID service recommendation. Has a left upper extremity PICC line in place. We will await ID service recommendation as far as the length of treatments. But clinically patient is stable, and could even potentially be discharged today pending clearance from other consultants. On 07/19/2017 patient seen in follow-up on medical surgical floor. We cleared her for discharge last night, ID service recommended 7 more days of IV meropenem. Patient has a left upper arm PICC line, she be going home, her family administers the meropenem at home, visiting nursing services will be arranged. Patient remains clinically stable, no worsening dyspnea, has been ambulating within the room without any significant respiratory distress. Urine , sputum and blood culture remained negative. Vital signs are stable, patient remains afebrile, currently on 2 L per nasal cannula with O2 sat at 99%. Lab work was reviewed, WBC is trending down, down to 13.7, hemoglobin is 13.9, sodium is 137, potassium is 4.3, chloride is 95, CO2 35, BUN is 34, creatinine 0.72. Patient remains stable, clear for discharge home today. Objective - Vital Signs Vital signs: Vital Signs Temp 97.9 F 07/19/17 07:00 Pulse 88 07/19/17 08:49 Resp 16 07/19/17 08:49 BP 135/77 07/19/17 07:00 Pulse Ox 99 07/19/17 08:39 Intake & Output 07/18/17 07/19/17 07/19/17 18:59 06:59 18:59 Weight 117.2 kg Other: Voiding Method Toilet Toilet Toilet # Voids 2 3 - Exam General Appearance no diaphoresis, no respiratory distress, speech not interrupted by breaths, no dyspnea, no pallor, not cachectic, well nourished, appears well, obesity HEENT no pursed lip breathing, no jugular venous distention, no mucous membrane cyanosis, no perioral cyanosis, mallampati classification: class 1, Mallampati Classification: Class 4 Chest no retractions, no sternocleidomastoid muscle contractions, no supraclavicular retractions, no intercostal retractions, no decreased air movement, no rhonchi, no hyperinflation, (normal) adventitious sounds: prolonged expiratory phase, decreased breath sounds bilaterally diffuse scattered rhonchi Heart no right ventricular heave, no distant heart sounds, no s3 gallop, (normal ) jugular vein: jugular venous distention: by 0cm, (normal) jugular vein GI bowel sounds: hyperactive (borborygmi), bowel sounds: diminished or absent Extremities no cyanosis, no clubbing, edema (trace edema) Neurologic no decreased mental status, no somnolence, no confusion Assisstive Devices: ambulates with no assitive devices, ambulates with cane, ambulates with walker Gait and Mobility: gait WNL, full weight bearing - Labs CBC & Chem 7: 07/19/17 08:40 07/19/17 08:40 Labs: Abnormal Lab Results - Last 24 Hours (Table) 07/18/17 07/18/17 07/18/17 Range/Units 12:04 17:06 21:01 WBC (3.8-10.6) k/uL Neutrophils # (1.3-7.7) k/uL Chloride (98-107) mmol/L Carbon Dioxide (22-30) mmol/L BUN (7-17) mg/dL Glucose (74-99) mg/dL POC Glucose (mg/dL) 128 H 351 H 231 H (75-99) mg/dL 07/19/17 07/19/17 Range/Units 08:40 08:40 WBC 13.7 H (3.8-10.6) k/uL Neutrophils # 8.5 H (1.3-7.7) k/uL Chloride 95 L (98-107) mmol/L Carbon Dioxide 35 H (22-30) mmol/L BUN 34 H (7-17) mg/dL Glucose 152 H (74-99) mg/dL POC Glucose (mg/dL) (75-99) mg/dL Microbiology - Last 24 Hours (Table) 07/13/17 20:29 Blood Culture - Preliminary Blood No Growth after 120 hours Assessment and Plan Plan: Assessment: 1 COPD along with a diffuse infiltrative lung disease with an underlying interstitial lung disease is suspected. Patient completed IV Merrem on outpatient basis for a PICC line. Currently she is having ongoing sputum production and sputum was re cultured and reveals no growth. She is currently on meropenem. Chest x-ray from today shows improving reticulonodular interstitial opacities, but no new infiltrates were seen. 2 history of MSSA in the sputum/MSSA pneumonia on previous bronchial wash in June 2017. 3 moderate chronic obstructive pulmonary disease Bilateral emphysema secondary to [id number] smoking history 4 chronic hypoxemic respiratory failure, oxygen at 2 L/m nasal cannula 5 morbid obesity 6 congestive heart failure, essentially of a diastolic dysfunction with preserved LV of 50% 7 right-sided cephalgia with tingling and numbness of the digits of the right hand lower extremity weakness more so on the right, computed tomography scan of the brain revealed no intracranial abnormality. Rule out an underlying hypertensive encephalopathy knowing that the patient presented with significantly elevated blood pressure at a time of admission. Plan Doing well, no acute events or specific complaints. Denies any worsening dyspnea. Back to her baseline, afebrile, hemodynamically stable, vital signs are stable. Tolerating activity well. Microbiology results have been reviewed , urine blood and sputum cultures show no growth. ID service recommended 7 more days of IV meropenem. She ready has a PICC line in place. Visiting nurses will be arranged to follow with the patient. Follow-up with Dr. Guzman in the office in 2 weeks. Patient is clear for discharge today. I performed a history & physical examination of the patient and discussed their management with my nurse practitioner, Chari Alonzo. I reviewed the nurse practitioner's note and agree with the documented findings and plan of care. Lung sounds are diminished, with a few scattered rhonchi. The findings and the impression was discussed with the patient. I attest to the documentation by the nurse practitioner. Time with Patient: Less than 30
--- NOTE | 2017-07-20 09:06 | DS ---
DISCHARGE SUMMARY DATE OF SERVICE: 07/19/2017. FINAL DIAGNOSES: 1. Chronic obstructive pulmonary disease acute exacerbation with acute purulent tracheobronchitis with possible acute interstitial process exacerbation. 2. Acute chronic obstructive pulmonary disease acute exacerbation. 3. Recent pneumococcal pneumonia. 4. Upper lobe pulmonary nodule. 5. Severe multiple allergies. 6. Obesity with body mass index of 30.5. 7. History of recent meropenem through PICC line. DISCHARGE DISPOSITION: The patient will be discharged in a stable condition with guarded prognosis. HISTORY OF PRESENT ILLNESS: This is a 56-year-old woman with a past medical history of multiple medical problems admitted with COPD exacerbation as well as in Pina's disease but; however, the patient was thought to be not a candidate for any possible liver biopsy. Treated symptomatically. Improved significantly and Dr. Dean saw the patient and Dr. Meza also saw the patient. Currently, the cultures are negative so far. The patient will ge discharged in stable condition with guarded prognosis. Follow up with Dr. Mclaughlin in 2 to 3 days. Follow up with Dr. Guzman as advised. MEDICATIONS ARE FOLLOWS: 1. Ecotrin 325 mg p.o. daily. 2. Bumex 1 mg p.o. b.i.d. 3. Ceretec 10 mg daily p.r.n.. 4. Flexeril 10 mg p.o. b.i.d. 5. EpiPen. 6. Flonase 1 spray daily. 7. Motrin 800 mg q.6 p.r.n. 8. NovoLog FlexPen 15 units a.c. t.i.d. p.r.n. 9. Insulin, NovoLog 70/30 fifty-five units a.c. b.i.d. 10.Xopenex 1.5 q.i.d. and p.r.n. 11.Magnesium oxide 250 mg p.o. daily. 12.Merrem 1 g IV q.8 for one week. 13.Singular 10 mg q.h.s. 14.Nitrostat p.r.n. 15.Nystatin swish and swallow. 16.Prednisone 40 mg daily for 3 days, 30 for 3 days, 20 for 3 days, 10 for 3 days. 17.Pseudoephedrine 120 mg p.o. daily. 18.Synthroid 125 mcg p.o. daily. Once again, the patient will be discharged in a stable condition with guarded prognosis. MMANANT / JUANN: [id number] /
== END 2017-07-19 11:43 | disposition home health service (06) | DRG 190 ==
LOC: EC 03:54 → 4MS4W 06:21
PROVIDERS: ADMIT Hospitalist; ATTEND Hospitalist
DX: J44.1 Chronic obstructive pulmonary disease with (acute) exacerbation (principal); I50.33 Acute on chronic diastolic (congestive) heart failure; J84.9 Interstitial pulmonary disease, unspecified; J96.11 Chronic respiratory failure with hypoxia; E66.01 Morbid (severe) obesity due to excess calories; E11.9 Type 2 diabetes mellitus without complications; D72.829 Elevated white blood cell count, unspecified; E87.1 Hypo-osmolality and hyponatremia; Z68.41 Body mass index [BMI] 40.0-44.9, adult; J32.9 Chronic sinusitis, unspecified; I45.81 Long QT syndrome; E03.9 Hypothyroidism, unspecified; I11.0 Hypertensive heart disease with heart failure; J20.9 Acute bronchitis, unspecified; J44.0 Chronic obstructive pulmonary disease with (acute) lower respiratory infection; E78.5 Hyperlipidemia, unspecified; F41.9 Anxiety disorder, unspecified; L29.9 Pruritus, unspecified; T38.0X5A Adverse effect of glucocorticoids and synthetic analogues, initial encounter; G89.29 Other chronic pain; R21 Rash and other nonspecific skin eruption; R91.1 Solitary pulmonary nodule; R63.0 Anorexia; M54.5 Low back pain; R51 Headache; I69.998 Other sequelae following unspecified cerebrovascular disease; Z79.4 Long term (current) use of insulin; Z79.82 Long term (current) use of aspirin; Z79.899 Other long term (current) drug therapy; Z87.891 Personal history of nicotine dependence; Z87.01 Personal history of pneumonia (recurrent); Z88.1 Allergy status to other antibiotic agents; Z91.030 Bee allergy status; Z91.041 Radiographic dye allergy status; Z88.5 Allergy status to narcotic agent; Z88.0 Allergy status to penicillin; Z88.2 Allergy status to sulfonamides; Z88.8 Allergy status to other drugs, medicaments and biological substances; Z91.018 Allergy to other foods; Z91.048 Other nonmedicinal substance allergy status; Z91.040 Latex allergy status; Z82.49 Family history of ischemic heart disease and other diseases of the circulatory system; Z99.81 Dependence on supplemental oxygen
CPT/HCPCS: 36415; 70450; 71045; 71046; 80048; 80053; 81001; 82550; 82553; 83036; 83605; 83735; 83880; 84484; 85025; 85610; 85730; 87040; 87070; 87086; 87205; 87502; 93005; 94640; 94760; 96374; 99285

== ENCOUNTER → 2017-08-11 | Outpatient (CLI) | payer MEDICARE, OTHER ==
[2017-08-11 10:00] LABS: Basophils # (A) 0.1 k/uL (0-0.2); Basophils % (A) 1 %; Eosinophils # (A) 0.2 k/uL (0-0.7); Eosinophils % (A) 2 %; HCT 41.7 % (34.0-46.0); HGB 13.9 gm/dL (11.4-16.0); Lymphocytes # (A) 3.4 k/uL (1.0-4.8); Lymphocytes % (A) 31 %; MCH 28.5 pg (25.0-35.0); MCHC 33.2 g/dL (31.0-37.0); MCV 85.9 fL (80.0-100.0); Mean Platelet Volume 6.9; Monocytes # (A) 0.5 k/uL (0-1.0); Monocytes % (A) 5 %; Neutrophils # (A) 6.5 k/uL (1.3-7.7); Neutrophils % (A) 60 %; Platelet Count 268 k/uL (150-450); RBC 4.86 m/uL (3.80-5.40); RDW 13.8 % (11.5-15.5); WBC 10.8 k/uL (3.8-10.6)
--- NOTE | 2017-08-11 10:07 | CT ---
EXAMINATION TYPE: CT chest wo con DATE OF EXAM: 08/11/2017 COMPARISON: 06/24/2017 HISTORY: 57-year-old female complains of diagnosis of pneumonia. Unspecified interstitial pulmonary d isease. TECHNIQUE: Contiguous axial scanning of the chest without IV contrast. Coronal and sagittal reconstru ctions performed. CT DLP: 652.9 mGycm Automated exposure control for dose reduction was used. FINDINGS: Heart upper limits of normal in size without pericardial effusion. Severe coronary vessel calcificati ons are present. Ascending aorta is borderline ectatic at 3.5 cm with mild atherosclerotic arch calcifications and con ventional arch vessel branching anatomy. Right paratracheal lymph node measures up to 1 cm, second right paratracheal lymph node measures 1.3 cm, AP window lymph node measures up to 1.1 cm. Additional numerous nonenlarged mediastinal lymph nod es are present. These are relatively unchanged from 06/24/2017 but show improvement from 04/20/2017. A trace left pleural effusion remains. Diffuse interstitial reticulonodular densities are redemonstrated. Overall findings have not progress ed from 06/24/2017 but show no appreciable improvement. The lung bases are relatively spared. No jonny nant cystic changes seen. Visualized upper abdomen shows no gross abnormality. Bones: Endplate spondylosis mid to lower thoracic spine. IMPRESSION: 1. RETICULONODULAR INTERSTITIAL LUNG DISEASE WITH AN UPPER TO MID LUNG PREDOMINANCE RELATIVELY SIMILA R FROM 06/24/2017, SLIGHTLY IMPROVED FROM 04/20/2017. SOME DIFFERENTIAL CONSIDERATIONS INCLUDE ATYPI KELLI INFECTIONS, SARCOIDOSIS, EG, PNEUMOCONIOSIS, AND INTERSTITIAL PNEUMONITIS. CORRELATE WITH PRIOR W ORKUP. 2. NONENLARGED AND MILDLY ENLARGED MEDIASTINAL LYMPH NODES MEASURING UP TO 1.3 CM ARE STABLE FROM AND SHOW IMPROVEMENT FROM 04/20/2017. 3. A TRACE LEFT PLEURAL EFFUSION REMAINS. 4. SEVERE CORONARY ARTERY CALCIFICATIONS.
[2017-08-11 10:31] LABS: Anion Gap 7 mmol/L; Blood Urea Nitrogen 23 mg/dL (7-17); Calcium 9.6 mg/dL (8.4-10.2); Carbon Dioxide 36 mmol/L (22-30); Chloride 98 mmol/L (98-107); Glucose 178 mg/dL (74-99); Potassium 4.8 mmol/L (3.5-5.1); Sodium 141 mmol/L (137-145)
[2017-08-12 03:58] LABS: Angiotensin-1 Converting Enz. 38 U/L (8-52)
[2017-08-12 14:09] LABS: C-ANCA <1:20 Titer (<1:20); P-ANCA <1:20 Titer (<1:20)
[2017-08-17 12:30] LABS: Alternaria Alternata IgG 5.7 mcg/mL (< 13.6); Aspergillus fumigatus IgG Not detected (Not detected); Aureobasidium pullulans IgG < 2.0 mcg/mL (< 13.6); Cladosporium herbarium IgG 59.5 mcg/mL (< 14.7); Phoma ssp. IgG 3.8 mcg/mL (< 6.6); Saccaharomospora viridis Not detected (Not detected); Saccaharopoly. rectivirgula Not detected (Not detected)
== END | disposition home or self-care (01) ==
LOC: RADCTMAIN 09:09
PROVIDERS: ATTEND Internal Medicine Pulmonary Disease
DX: J84.9 Interstitial pulmonary disease, unspecified (principal); R59.0 Localized enlarged lymph nodes; I25.10 Atherosclerotic heart disease of native coronary artery without angina pectoris
CPT/HCPCS: 36415; 71250; 80048; 82164; 85025; 86001; 86255; 86606; 86609

== ENCOUNTER → 2017-12-13 | Outpatient (CLI) | payer MEDICARE, OTHER ==
[2017-12-13 13:18] LABS: Basophils # (A) 0.1 k/uL (0-0.2); Basophils % (A) 1 %; Eosinophils # (A) 0.2 k/uL (0-0.7); Eosinophils % (A) 3 %; HCT 46.2 % (34.0-46.0); Lymphocytes # (A) 1.9 k/uL (1.0-4.8); Lymphocytes % (A) 24 %; MCH 27.8 pg (25.0-35.0); MCHC 32.6 g/dL (31.0-37.0); MCV 85.2 fL (80.0-100.0); Mean Platelet Volume 7.5; Monocytes # (A) 0.4 k/uL (0-1.0); Monocytes % (A) 6 %; Neutrophils % (A) 65 %; Platelet Count 222 k/uL (150-450); RBC 5.42 m/uL (3.80-5.40); RDW 14.3 % (11.5-15.5); WBC 7.7 k/uL (3.8-10.6)
[2017-12-13 13:40] LABS: ALT 38 U/L (9-52); AST 21 U/L (14-36); Albumin 3.2 g/dL (3.5-5.0); Alkaline Phosphatase 68 U/L (38-126); Anion Gap 11 mmol/L; Blood Urea Nitrogen 13 mg/dL (7-17); Calcium 8.9 mg/dL (8.4-10.2); Carbon Dioxide 29 mmol/L (22-30); Chloride 99 mmol/L (98-107); Cholesterol 226 mg/dL (<200); Glucose 255 mg/dL (74-99); HDL Cholesterol 36 mg/dL (40-60); LDL Cholesterol,Calculated 146 mg/dL (0-99); Potassium 4.3 mmol/L (3.5-5.1); Sodium 139 mmol/L (137-145); Total Bilirubin 0.2 mg/dL (0.2-1.3); Total Protein 5.8 g/dL (6.3-8.2); Triglycerides 222 mg/dL (<150)
[2017-12-13 13:58] LABS: T4, Free (Free Thyroxine) 1.68 ng/dL (0.78-2.19)
--- NOTE | 2017-12-13 15:17 | CT ---
EXAMINATION TYPE: CT chest wo con DATE OF EXAM: 12/13/2017 COMPARISON: NONE HISTORY: Cough, inflammation and infection. CT DLP: 560.1 mGycm, Automated exposure control for dose reduction was used. CONTRAST: None TECHNIQUE: Axial images were obtained at 5 mm thick sections. Reconstructed images are reviewed on [employer] computer in the coronal plane. FINDINGS: Portion of the thyroid visualized is normal. No suspicious supraclavicular adenopathy is ev ident. There is extensive adenopathy through the mediastinum. Multiple small lymph nodes are within the supe rior mediastinum. There are some enlarged nodes measuring 1.0 cm in the superior mediastinum. Enlarge d pretracheal lymph nodes are present measuring 1 cm in size. There is some periaortic lymph nodes me asuring 0.8 and 0.9 cm The aorta pulmonic window. Additional small lymph nodes are in the aortopulmonic window. Subcarinal l ymphadenopathy is not clearly identified. Hilar adenopathy is difficult to identify. Small bilateral pleural effusions are present. Coronary artery calcification is noted. The ascending aorta diameter at the level of the main pulmonary artery is 3.7 cm. The main pulmonary artery diameter at the bifurcation is 2.[address] sections are obtained through the upper abdomen. Abdomen is essentially unremarkable. IMPRESSIONS: 1. Multiple enlarged lymph nodes within the superior and pretracheal mediastinum. These are enlarging from the comparison of 08/11/2017 2. Small bilateral pleural effusions. The right pleural effusion is developed in left pleural effusio n is increased from the comparison.
[2017-12-13 15:55] LABS: Erythrocyte Sedimentation Rate 15 mm/hr (0-20)
== END | disposition home or self-care (01) ==
LOC: RADCTMAIN 12:14
PROVIDERS: ATTEND Internal Medicine Critical Care Medicine
DX: E11.9 Type 2 diabetes mellitus without complications (principal); J84.89 Other specified interstitial pulmonary diseases; E78.5 Hyperlipidemia, unspecified; E03.9 Hypothyroidism, unspecified; J44.9 Chronic obstructive pulmonary disease, unspecified; I10 Essential (primary) hypertension; I50.9 Heart failure, unspecified
CPT/HCPCS: 36415; 71250; 80053; 80061; 82164; 84439; 84443; 85025; 85652